=== PATIENT | male | born 1950 | race African-American/Black ===

== ENCOUNTER 2016-02-22 16:42 | Inpatient (IN) | payer OTHER ==
[~2016-02-22] VITALS: Ht 185.4 cm; Wt 83.3 kg
--- NOTE | 2016-02-22 17:31 | PD ---
HPI . Dyspnea on exertion Chief Complaint: Cardiac Time Seen by Provider: 17:26 Travel History International Travel<30 days: No Contact w/Intl Traveler<30days: No History of Present Illness HPI Patient presents from longterm with the chief complaint of dyspnea on exertion for a year. He was seen in the clinic in longterm yesterday and that they did some blood work. He states that they subsequently sent him here for evaluation today. He does not have chest pain. He has not been running a fever. PFSH Social History Tobacco Use: No Allergies-Medications (Allergen,Severity, Reaction): Coded Allergies: No Known Allergies (Unverified , 02/22/16) Review of Systems Except as stated in HPI: all other systems reviewed are Neg General / Constitutional: No: Fever, Chills Cardiovascular: No: Chest Pain or Discomfort Respiratory: Positive: Shortness of Breath Gastrointestinal: No: Nausea, Vomiting Physical Exam Narrative GENERAL: Healthy-appearing prisoner who is accompanied by a couple of guards. SKIN: Warm and dry. HEAD: Atraumatic. Normocephalic. EYES: Pupils equal and round. ENT: No nasal bleeding or discharge. Mucous membranes pink and moist. NECK: Trachea midline. CARDIOVASCULAR: Regular rate and rhythm. Heart sounds normal. RESPIRATORY: No accessory muscle use. Lungs are clear with full air movement throughout. GASTROINTESTINAL: Abdomen soft, non-tender, nondistended. MUSCULOSKELETAL: No obvious deformities. No edema. NEUROLOGICAL: Awake and alert. No obvious cranial nerve deficits. Motor grossly within normal limits. Normal speech. PSYCHIATRIC: Appropriate mood and affect; insight and judgment normal. Data Data Last Documented VS Vital Signs Date Time Temp Pulse Resp B/P Pulse Ox O2 Delivery O2 Flow Rate FiO2 02/22/16 18:00 97.5 84 32 135/77 98 Orders Complete Blood Count With Diff (02/22/16 17:26) Comprehensive Metabolic Panel (02/22/16 17:26) B-Type Natriuretic Peptide (02/22/16 17:26) Ckmb (Isoenzyme) Profile (02/22/16 17:26) Troponin I (02/22/16 17:26) Iv Access Insert/Monitor (02/22/16 17:26) Electrocardiogram (02/22/16:) Ecg Monitoring (02/22/16:26) Oximetry (02/22/16:) Oxygen Administration (1/5/17 17:26) Chest, Single Ap (02/22/16 17:26) CKMB (02/22/16 18:00) CKMB% (02/22/16 18:00) Furosemide Inj (Lasix Inj) (02/22/16 19:30) Nitroglycerin 2% Oint (Nitroglycerin 2% (02/22/16 19:30) Clopidogrel (Plavix) (02/22/16 19:30) Enoxaparin Inj (Lovenox Inj) (02/22/16 19:30) Aspirin Chew (Aspirin Chew) (02/22/16 19:30) Admit Order (Ed Use Only) (02/22/16 19:49) Place In Observation (02/22/16 ) Code Status (02/22/16 20:10) Vital Signs (Adult) Q4H (02/22/16 20:10) Activity Oob With Assistance (02/22/16 20:10) Bedside Glucose ANGELLA.AC&HS (02/22/16 20:10) ^ Surgical Endoscopist / Telemetry .CONTINUOUS (02/22/16 20:10) Intake + Output ANGELLA.QSHIFT (02/22/16 20:10) Diet Npo (02/23/16 Breakfast) Sodium Chlor 0.9% 1000 Ml Inj (Ns 1000 M (02/22/16 20:10) Sodium Chloride 0.9% Flush (Ns Flush) (02/22/16 20:15) Sodium Chloride 0.9% Flush (Ns Flush) (02/22/16 21:00) Acetaminophen (Tylenol) (02/22/16 20:15) Ondansetron Inj (Zofran Inj) (02/22/16 20:15) Prochlorperazine Supp (Compazine Supp) (02/22/16 20:15) Bisacodyl Supp (Dulcolax Supp) (02/22/16 20:15) Magnesium Hydroxide Liq (Milk Of Magnesi (02/22/16 20:15) Sennosides (Senokot) (02/22/16 20:15) Temazepam (Restoril) (02/22/16 20:15) Basic Metabolic Panel (Bmp) (02/23/16 06:00) Complete Blood Count With Diff (02/23/16 06:00) Troponin I (02/22/16 20:10) Troponin I (02/23/16 02:10) Electrocardiogram (02/22/16 20:15) Resp Oxygen Logan C Titrat 1-4 L (02/22/16 ) Pt Request For Service (02/22/16 20:10) Case Management Consult (02/22/16 20:10) Enoxaparin Inj (Lovenox Inj) (02/22/16 20:15) Scd Bilateral/Knee High ANGELLA.BID (02/22/16 20:10) Jong Bilateral/Knee High ANGELLA.QSHIFT (02/22/16 20:10) Echo 2d Comp W/Dopp(Routine) (02/22/16 ) Furosemide Inj (Lasix Inj) (02/23/16 09:00) Potassium Chloride (Kcl) (02/22/16 21:00) Potassium Chloride (Kcl) (02/22/16 20:15) Consult Cardiology (02/22/16 ) Labs Laboratory Tests Test 02/22/16 18:00 White Blood Count 8.7 TH/MM3 Red Blood Count 3.93 MIL/MM3 Hemoglobin 12.1 GM/DL Hematocrit 36.7 % Mean Corpuscular Volume 93.2 FL Mean Corpuscular Hemoglobin 30.7 PG Mean Corpuscular Hemoglobin 32.9 % Concent Red Cell Distribution Width 16.4 % Platelet Count 191 TH/MM3 Mean Platelet Volume 8.3 FL Neutrophils (%) (Auto) 81.5 % Lymphocytes (%) (Auto) 11.5 % Monocytes (%) (Auto) 5.6 % Eosinophils (%) (Auto) 0.9 % Basophils (%) (Auto) 0.5 % Neutrophils # (Auto) 7.1 TH/MM3 Lymphocytes # (Auto) 1.0 TH/MM3 Monocytes # (Auto) 0.5 TH/MM3 Eosinophils # (Auto) 0.1 TH/MM3 Basophils # (Auto) 0.0 TH/MM3 CBC Comment DIFF FINAL Differential Comment Sodium Level 145 MEQ/L Potassium Level 3.3 MEQ/L Chloride Level 108 MEQ/L Carbon Dioxide Level 28.5 MEQ/L Anion Gap 9 MEQ/L Blood Urea Nitrogen 20 MG/DL Creatinine 1.66 MG/DL Estimat Glomerular Filtration 41 ML/MIN Rate Random Glucose 95 MG/DL Calcium Level 8.4 MG/DL Total Bilirubin 1.5 MG/DL Aspartate Amino Transf 31 U/L (AST/SGOT) Alanine Aminotransferase 34 U/L (ALT/SGPT) Alkaline Phosphatase 94 U/L Total Creatine Kinase 228 U/L Creatine Kinase MB 4.4 NG/ML Troponin I 0.92 NG/ML B-Type Natriuretic Peptide GREATER THAN 5000 PG/ML Total Protein 7.3 GM/DL Albumin 2.6 GM/DL MDM Medical Decision Making Medical Screen Exam Complete: Yes Emergency Medical Condition: Yes Interpretation(s) EKG shows a sinus rhythm. He has a type II heart block. He has some T wave inversion Differential Diagnosis Differential diagnosis of dyspnea includes but is not limited to congestive heart failure, pneumonia, wheezing, pneumothorax, pulmonary embolism Narrative Course Patient presents from longterm evaluation of dyspnea for the last year. Chest x-ray shows huge cardiomegaly but lungs were relatively clear. The chest x-ray has been independently viewed by me. His CBC is relatively normal. H&H is 12.1 and 36.7 He has some renal insufficiency with a GFR of 41. Penicillin is 0.92. BNP is greater than 5000. He is ready for admission. I have ordered Lasix, nitroglycerin, Plavix, aspirin and Lovenox. Diagnosis Primary Impression: CHF (congestive heart failure) Qualified Code: I50.9 - Congestive heart failure, unspecified congestive heart failure chronicity, unspecified congestive heart failure type Admitting Information Admitting Physician Requests: Admit Condition: Stable Shirley Hatch MD Feb 22, 2016 17:30
--- NOTE | 2016-02-22 17:47 | RADRPT ---
EXAM DATE/TIME: 02/22/2016 17:29 [facility] COMPARISON: No previous studies available for comparison. INDICATIONS : Shortness of breath. MEDICAL HISTORY : None. SURGICAL HISTORY : None. ENCOUNTER: Initial ACUITY: 1 day PAIN SCORE: 0/10 LOCATION: Bilateral chest FINDINGS: A single view of the chest demonstrates global cardiomegaly. Minimal basilar airspace disease. No sig nificant effusion. CONCLUSION: 1. Global cardiomegaly with minimal basilar airspace disease. Differential diagnosis includes mild ed candy with basilar atelectasis. Don Corral MD on February 22, 2016 at 17:45 Board Certified Radiologist. This report was verified electronically.
[2016-02-22 18:00] VITALS: BP 135/77; PULSE 84; RESP 32; TEMP 97.5; O2SAT 98
[2016-02-22 18:30] LABS: AUTOMATED NEUTROPHIL # 7.1 TH/MM3 (1.8-7.7); BASOPHIL % 0.5 % (0.0-2.0); EOSINOPHIL # 0.1 TH/MM3 (0-0.4); EOSINOPHIL % 0.9 % (0.0-4.0); HEMATOCRIT 36.7 % (39.0-51.0); HEMO FLAGS DIFF FINAL; LYMPH % 11.5 % (9.0-44.0); MEAN CELL VOLUME 93.2 FL (80.0-100.0); MEAN CORPUSCULAR HEMOGLOBIN 30.7 PG (27.0-34.0); MEAN CORPUSCULAR HGB CONC 32.9 % (32.0-36.0); MONO % 5.6 % (0.0-8.0); NEUT % 81.5 % (16.0-70.0); PLATELET COUNT 191 TH/MM3 (150-450); RED BLOOD COUNT 3.93 MIL/MM3 (4.50-5.90); RED CELL DISTRIBUTION WIDTH 16.4 % (11.6-17.2); WHITE BLOOD COUNT 8.7 TH/MM3 (4.0-11.0)
[2016-02-22 18:50] LABS: ANION GAP 9 MEQ/L (5-15); AST (GOT) 31 U/L (15-37); BICARBONATE 28.5 MEQ/L (21.0-32.0); BLOOD UREA NITROGEN 20 MG/DL (7-18); CHLORIDE 108 MEQ/L (98-107); GLOMERULAR FILTRATION RATE 41 ML/MIN (>89); POTASSIUM 3.3 MEQ/L (3.5-5.1); SODIUM (NA) 145 MEQ/L (136-145)
[2016-02-22 18:55] LABS: ALKALINE PHOSPHATASE 94 U/L (45-117); ALT (GPT) 34 U/L (12-78); CREATINE KINASE 228 U/L (39-308); TOTAL BILIRUBIN ADULT 1.5 MG/DL (0.2-1.0)
[2016-02-22] MEDS ORDERED: NITROGLYCERIN 2% OINT 1 GM PACKET TOPICAL ONE (19:30)
[2016-02-22] MEDS ORDERED: ASPIRIN 81 MG CHEW TAB CHEW ONE (19:30)
[2016-02-22] MEDS ORDERED: FUROSEMIDE 100 MG/10 ML VIAL IV PUSH ONE (19:30)
[2016-02-22] MEDS ORDERED: ENOXAPARIN SODIUM 100 MG/ML SYRINGE SQ ONE (19:30)
[2016-02-22] MEDS ORDERED: CLOPIDOGREL 300 MG TAB PO ONE (19:30)
[2016-02-22 19:33] LABS: CKMB 4.4 NG/ML (0.5-3.6)
[2016-02-22] MEDS ORDERED: SODIUM CHLORIDE 0.9% FLUSH 5 ML FLUSH FLUSH PRN (20:15)
[2016-02-22] MEDS ORDERED: MAGNESIUM HYDROXIDE SUSP 30 ML CUP PO PRN (20:15)
[2016-02-22] MEDS ORDERED: POTASSIUM CHLORIDE 10 MEQ CONTROLLED RELEASE TAB PO ONE (20:15)
[2016-02-22] MEDS ORDERED: PROCHLORPERAZINE 25 MG SUPP PR PRN (20:15)
[2016-02-22] MEDS ORDERED: ACETAMINOPHEN 325 MG TAB PO PRN (20:15)
[2016-02-22] MEDS ORDERED: BISACODYL 10 MG SUPP PR PRN (20:15)
[2016-02-22] MEDS ORDERED: ONDANSETRON HCL 4 MG/2 ML VIAL IVP PRN (20:15)
[2016-02-22] MEDS ORDERED: SENNOSIDES 8.6 MG TAB PO PRN (20:15)
[2016-02-22] MEDS ORDERED: ENOXAPARIN SODIUM 40 MG/0.4 ML SYRINGE SQ SCH (21:00)
[2016-02-22] MEDS: SODIUM CHLOR 0.9% 1000 ML INJ 1,000 ML IV SCH (22:41)
[2016-02-22] MEDS: SODIUM CHLORIDE 0.9% FLUSH 5 ML FLUSH FLUSH SCH (22:41)
--- NOTE | 2016-02-22 23:11 | HHI.HP ---
[facility] Service [facility] Primary Care Physician Unknown Admission Diagnosis CHF Diagnoses: Chief Complaint: severe sob Travel History International Travel<30 Days: No Contact w/Intl Traveler <30 Da: No Traveled to Known Affected Are: No History of Present Illness Patient is 66-year-old AA male with past medical history of hypertension, CHF, presents from custodial with the chief complaint of dyspnea on exertion for a year. He was seen in the clinic in custodial yesterday and that they did some blood work. He states that they subsequently sent him here for evaluation today. He does not have chest pain. He has not been running a fever. Patient reports shortness of breath is getting worse over the past few days. Says she is not able to eat meals due to shortness of breath. He also reports increased lower extremity swelling. He does not require oxygen. Denies chest pain. However admits having chest pain at times. No fever or chills. Has intermittent cough no much production. Denies fever or chills. Says he is not taking his medications because he can't afford them. Review of Systems Constitutional: DENIES: Fever, Chills, Change in appetite Endocrine: DENIES: Heat/cold intolerance Eyes: DENIES: Blurred vision, Eye pain Ears, nose, mouth, throat: DENIES: Tinnitus, Hearing loss, Vertigo, Nasal discharge, Oral lesions, Throat pain, Hoarseness, Ear Pain, Running Nose, Epistaxis, Sinus Pain, Toothache, Odynophagia Respiratory: COMPLAINS OF: Cough, Sputum production, Shortness of breath, DENIES: Apneas, Snoring, Wheezing, Hemoptysis Cardiovascular: COMPLAINS OF: Chest pain, Dyspnea on Exertion, Lower Extremity Edema, Orthopnea, DENIES: Palpitations, Syncope, PND, Claudication Gastrointestinal: DENIES: Abdominal pain, Black stools, Bloody stools, Constipation, Diarrhea, Nausea, Vomiting, Difficulty Swallowing, Anorexia Genitourinary: DENIES: Urgency, Hematuria, Dysuria Musculoskeletal: COMPLAINS OF: Joint pain Integumentary: DENIES: Rash Neurologic: DENIES: Abnormal gait, Headache, Localized weakness, Paresthesias, Seizures, Speech Problems, Tremor, Poor Balance Psychiatric: DENIES: Anxiety, Depression Past Family Social History Past Medical History Hypertension, congestive heart failure Past Surgical History No surgeries Reported Medications Last Impressions Chest X-Ray 02/22/16 5056 Signed Impressions: Service Date/Time: February 17:29 - CONCLUSION: 1. Global cardiomegaly with minimal basilar airspace disease. Differential diagnosis includes mild edema with basilar atelectasis. Don Corral MD Allergies: Coded Allergies: No Known Allergies (Unverified , 02/22/16) Family History Mother stroke on the age of 80 Father heart problems, alcohol abuse Brother with stroke at the age of 50 Social History Denies alcohol use, illicit drug use or tobacco use. Physical Exam Vital Signs Vital Signs Date Time Temp Pulse Resp B/P Pulse Ox O2 Delivery O2 Flow Rate FiO2 02/22/16 18:00 97.5 84 32 135/77 98 Physical Exam GENERAL: This is a well-nourished, well-developed patient, in no apparent distress. SKIN: No rashes, ecchymoses or lesions. Cool and dry. HEAD: Atraumatic. Normocephalic. No temporal or scalp tenderness. EYES: Pupils equal round and reactive. Extraocular motions intact. No scleral icterus. No injection or drainage. ENT: Nose without bleeding, purulent drainage or septal hematoma. Throat without erythema, tonsillar hypertrophy or exudate. Uvula midline. Airway patent. NECK: Trachea midline. No JVD or lymphadenopathy. Supple, nontender, no meningeal signs. CARDIOVASCULAR: Regular rate and rhythm without murmurs, gallops, or rubs. RESPIRATORY: Clear to auscultation. Breath sounds equal bilaterally. No wheezes , rales, or rhonchi. GASTROINTESTINAL: Abdomen soft, non-tender, nondistended. No hepato-splenomegaly , or palpable masses. No guarding. MUSCULOSKELETAL: Extremities without clubbing, cyanosis, or edema. No joint tenderness, effusion, or edema noted. No calf tenderness. Negative Homans sign bilaterally. NEUROLOGICAL: Awake and alert. Cranial nerves II through XII intact. Motor and sensory grossly within normal limits. Five out of 5 muscle strength in all muscle groups. Normal speech. Laboratory Laboratory Tests Test 02/22/16 18:00 White Blood Count 8.7 Red Blood Count 3.93 Hemoglobin 12.1 Hematocrit 36.7 Mean Corpuscular Volume 93.2 Mean Corpuscular Hemoglobin 30.7 Mean Corpuscular Hemoglobin 32.9 Concent Red Cell Distribution Width 16.4 Platelet Count 191 Mean Platelet Volume 8.3 Neutrophils (%) (Auto) 81.5 Lymphocytes (%) (Auto) 11.5 Monocytes (%) (Auto) 5.6 Eosinophils (%) (Auto) 0.9 Basophils (%) (Auto) 0.5 Neutrophils # (Auto) 7.1 Lymphocytes # (Auto) 1.0 Monocytes # (Auto) 0.5 Eosinophils # (Auto) 0.1 Basophils # (Auto) 0.0 CBC Comment DIFF FINAL Differential Comment Sodium Level 145 Potassium Level 3.3 Chloride Level 108 Carbon Dioxide Level 28.5 Anion Gap 9 Blood Urea Nitrogen 20 Creatinine 1.66 Estimat Glomerular Filtration 41 Rate Random Glucose 95 Calcium Level 8.4 Total Bilirubin 1.5 Aspartate Amino Transf 31 (AST/SGOT) Alanine Aminotransferase 34 (ALT/SGPT) Alkaline Phosphatase 94 Total Creatine Kinase 228 Creatine Kinase MB 4.4 Troponin I 0.92 B-Type Natriuretic Peptide GREATER THAN 5000 Total Protein 7.3 Albumin 2.6 Result Diagram: 02/22/16 1800 02/22/16 1800 Imaging Last Impressions Chest X-Ray 02/22/16 1726 Signed Impressions: Service Date/Time: February 17:29 - CONCLUSION: 1. Global cardiomegaly with minimal basilar airspace disease. Differential diagnosis includes mild edema with basilar atelectasis. Don Corral MD Assessment and Plan Assessment and Plan 66-year-old Bev male with past medical history of hypertension, hyperlipidemia, BPH who came to the emergency room for evaluation of worsening shortness of breath. Congestive heart failure with BNP 5000. Elevated troponins. We'll trend troponins. Likely demand ischemia from congestive heart failure. Patient denies having chest pain. We'll do 2-D echo. Start Lasix 40 mg IV twice a day monitor closely kidney function. Cardiology consulted Monitor CBC, BMP, BNP Start lisinopril, metoprolol, ASA Check lipid panel, A1c, TSH Monitor I&Os. RODRIGO on CKD. Monitor kidney indices. BPH. Continue home meds Morbid obese BMI 31. Diet and exercise. Code Status Full code Discussed Condition With Patient, nurse, ED physician Physician Certification 2 Midnight Certification Type: Admission for Inpatient Services Order for Inpatient Services The services are ordered in accordance with Medicare regulations or non- Medicare payer requirements, as applicable. In the case of services not specified as inpatient-only, they are appropriately provided as inpatient services in accordance with the 2-midnight benchmark. Estimated LOS (days): 3 days is the estimated time the patient will need to remain in the hospital, assuming treatment plan goals are met and no additional complications. Post-Hospital Plan: Home Eliane Colvin MD Feb 22, 2016 23:11
[2016-02-22] MEDS: POTASSIUM CHLORIDE 20 MEQ CONTROLLED RELEASE TAB PO SCH (23:55)
[2016-02-23] VITALS (14 sets, daily range): BP systolic 121–169; BP diastolic 74–99; PULSE 73–96; RESP 16–24; TEMP 97.7–98.2; O2SAT 94–100
[2016-02-23 05:38] LABS: AUTOMATED NEUTROPHIL # 5.5 TH/MM3 (1.8-7.7); BASOPHIL % 0.5 % (0.0-2.0); EOSINOPHIL % 0.6 % (0.0-4.0); HEMATOCRIT 35.8 % (39.0-51.0); HEMO FLAGS DIFF FINAL; LYMPH % 11.8 % (9.0-44.0); LYMPHOCYTE # 0.8 TH/MM3 (1.0-4.8); MEAN CELL VOLUME 92.7 FL (80.0-100.0); MEAN CORPUSCULAR HGB CONC 33.4 % (32.0-36.0); MONO % 5.8 % (0.0-8.0); NEUT % 81.3 % (16.0-70.0); PLATELET COUNT 181 TH/MM3 (150-450); RED BLOOD COUNT 3.86 MIL/MM3 (4.50-5.90); RED CELL DISTRIBUTION WIDTH 16.4 % (11.6-17.2); WHITE BLOOD COUNT 6.7 TH/MM3 (4.0-11.0)
[2016-02-23] MEDS ORDERED: POTA75TA PO (05:49)
[2016-02-23] MEDS ORDERED: FURO1TAB62 PO (05:49)
[2016-02-23] MEDS ORDERED: METO50TA PO (05:49)
[2016-02-23] MEDS ORDERED: AMLO5TAB2 PO (05:49)
[2016-02-23 06:00] LABS: BICARBONATE 28.8 MEQ/L (21.0-32.0); POTASSIUM 3.4 MEQ/L (3.5-5.1)
[2016-02-23] MEDS: SODIUM CHLOR 0.9% 1000 ML INJ 1,000 ML IV SCH (07:00)
[2016-02-23] MEDS ORDERED: HEPARIN-NS/PF INJ 500 ML ONE (08:56)
[2016-02-23] MEDS: METOPROLOL TARTRATE 25 MG TAB PO SCH ×2 (09:00→20:23)
[2016-02-23] MEDS: CLOPIDOGREL 75 MG TAB PO SCH (09:00)
[2016-02-23] MEDS: FUROSEMIDE 40 MG/4 ML VIAL IV PUSH SCH ×3 (09:00→17:00)
[2016-02-23] MEDS: POTASSIUM CHLORIDE 20 MEQ CONTROLLED RELEASE TAB PO SCH ×2 (09:00→20:23)
[2016-02-23] MEDS ORDERED: LISINOPRIL 5 MG TAB PO SCH (09:00)
[2016-02-23] MEDS: SODIUM CHLORIDE 0.9% FLUSH 5 ML FLUSH FLUSH SCH (09:00)
[2016-02-23] MEDS: ASPIRIN 81 MG CHEW TAB CHEW SCH (09:00)
[2016-02-23] MEDS ORDERED: MIDAZOLAM HCL 2 MG/2 ML VIAL ONE (09:07)
--- NOTE | 2016-02-23 09:14 | MB ---
cc: DANILO SCHRADER DO DATE OF CONSULTATION February 23, 2016 REASON FOR CONSULTATION [id number] myocardial infarction. HISTORY OF PRESENT ILLNESS Dario Le is a pleasant 66-year-old male who presents from [place] [facility] to [facility] Emergency Room on February 22, 2016, due to dyspnea on exertion. He states that this dyspnea on exertion has been going on for the past year but got extensively worse recently. He also seems to get chest pain with any type of exertion. He was seen in the clinic in [place] [facility] and they did some blood work and then sent him over for evaluation today. He denies fevers, chills, cough. He has been unable to eat due to his shortness of breath. He has also noticed lower extremity swelling. PAST MEDICAL HISTORY 1. Hypertension. 2. Congestive heart failure. PAST SURGICAL HISTORY Denies. ALLERGIES No known drug allergies. MEDICATIONS 1. Metoprolol tartrate 50 mg b.i.d. 2. Norvasc 5 mg daily 3. Lasix 20 mg daily 4. Potassium 20 mg daily. FAMILY HISTORY Mother had a stroke at the age of 80. Father had heart problems and a history of alcohol abuse. Brother with a stroke at the age of 50. SOCIAL HISTORY Denies alcohol, illicit drug abuse or tobacco abuse. REVIEW OF SYSTEMS Fourteen systems were reviewed including osteopathic pertinent positives and negatives above, otherwise negative. PHYSICAL EXAMINATION VITAL SIGNS: Temperature 97.5, heart rate 78, blood pressure 169/80, respirations 18, pulse ox 97% on 5 liters. IN GENERAL: The patient appears well with no shortness of breath during conversation. Alert, awake and oriented x 3. HEENT: Extraocular muscles intact. Mucous membranes moist. NECK: Supple with JVD up to the jaw line at 45 degrees. Carotid upstroke is brisk in nature. HEART: Regular rate and rhythm. Positive first and second heart sounds with no noted murmurs, gallops or rubs. PMI is difficult to locate. Lungs have decreased breath sounds at bilateral bases with minimal rales at the bases. ABDOMEN: Soft, nontender, nondistended. No organomegaly noted. EXTREMITIES: 1+ pitting edema bilaterally with some chronic changes due to chronic edema. NEUROLOGICALLY: No focal deficits. SKIN: Warm, dry and intact. OSTEOPATHIC EXAM: No kyphoscoliosis, lordosis or paraspinal tender points. LABORATORY WORK White blood cells 6.7, hemoglobin 12.0, hematocrit 35.8, platelets 181. Sodium 147, potassium 3.4, BUN 19, creatinine 1.63 down from 1.66. Troponin 0.92, down to 0.84. BNP greater than 5000. ELECTROCARDIOGRAM (February 22, 2016 at 20:58) Normal sinus rhythm with occasional PVC, nonspecific ST-T wave changes. IMPRESSIONS 1. Acute heart failure of unknown systolic versus diastolic. 2. Pyg-YG-[id number] myocardial infarction, possible type 1 versus type 2. 3. Hypertension. 4. Chest pain with exertion concerning for coronary insufficiency. 5. CKD-III. RECOMMENDATIONS 1. Dario Le is a pleasant 66-year-old male with a concern for significant acute on chronic heart failure. Of concern is possible ischemia or significant coronary artery disease leading to this. 2. We will take him to the cardiac catheterization lab for a right and left heart cath due to his heart failure and N-STEMI. The patient is able to lay flat at this time for the procedure. 3. 2-D echo should be done to look at overall left ventricular function, cardiac structure and follow up with these. 4. Postprocedure we will need to continue with diuresis and starting him on meds for his blood pressure and congestive heart failure. 5. Further recommendations will be made after coronary visualization. Thank you for allowing me to see Dario Le. If there are any questions, please do not hesitate to call. Danilo Schrader DO VGP/SSB /8:32 AM /9:00 AM
[2016-02-23] MEDS ORDERED: IOHEXOL 350 MG/ML 100 ML BTL (for Cath Lab) OTHER ONE (10:00)
[2016-02-23] MEDS ORDERED: hydrALAZINE HCL 20 MG/ML VIAL ONE ×2 (10:01→10:17)
[2016-02-23] MEDS ORDERED: LABETALOL HCL 100 MG/20 ML VIAL ONE (10:28)
[2016-02-23] MEDS ORDERED: MISC INFORMATION XX ONE (10:30)
--- NOTE | 2016-02-23 10:52 | MA ---
cc: DANILO SCHRADER DO DATE 02/23/2016 PROCEDURE Left heart catheterization, right heart catheterization, coronary angiogram. PREPROCEDURE DIAGNOSIS NSTEMI, acute heart failure, Callow[place] Heart Association class IV, shortness of breath. POSTPROCEDURE DIAGNOSIS NSTEMI, nonischemic cardiomyopathy, acute heart failure, [place] Heart Association class IV. MEDICATIONS GIVEN Hydralazine 10 mg IV ESTIMATED BLOOD LOSS 10 cc CONTRAST 80 cc. FLUOROSCOPY 10.8 minutes PROCEDURAL SUMMARY Dario Le is a pleasant 66-year-old male who presented to the emergency room in acute heart failure, Calloway Heart Association class IV. He was found to have an elevation of his troponins and it was felt that he should undergo cardiac catheterization. The risks, benefits and alternatives were explained and he consented as such. He was brought to lab and prepped in the usual sterile fashion. His right femoral artery was accessed using a modified Seldinger technique and placement of a 5-Tanzanian sheath. His right femoral vein was accessed using a modified Seldinger technique and a 7-Tanzanian sheath was placed. Both sheaths were aspirated and flushed easily. A Houston-Cipriano catheter was then taken to a wedge position with pressures and sats measured on pullback in the usual fashion. The Houston-Cipriano catheter was then removed. A JR-4 was then taken to the ascending aorta. Selective angiography of the right coronary artery shows 10-20% through the midportion with a distal LPL of 40%. JR-4 was then exchanged for a JL-4. This was not able to reach across to the left coronary system and so this was exchanged for a JL-4.5. JL-4.5 was then used to engage the left coronary system. The left main is a large vessel with distal tapering of 20%. It gives off a large LAD and circumflex. LAD has 30% diffuse disease throughout the proximal portion with no significant disease distally. He has two large diagonals that come off the LAD without significant disease. The left circumflex has 30% in the proximal to mid section with 2 large obtuse marginals with no significant disease. JL-4.5 was then exchanged for a angled pigtail and this was used to cross the aortic valve with measurement of left ventricular pressures. This was then pulled back across the aortic valve showing no significant aortic stenosis. The pigtail was then removed over a J-wire. Both sheaths were aspirated and flushed easily. Mr. Le left the catheterization lab stable condition. HEMODYNAMIC RESULTS Right atrium 24. Right ventricle 75/18, RVEDP 24. PA 78/48, mean 59. Wedge 39. Cardiac output 4.0. Cardiac index 1.8 LV 140/26. LVEDP 40. IMPRESSION 1. Puj-ZS-aobgbidht myocardial infarction which appears to be type 2 in nature with no significant obstructive coronary artery disease. 2. Acute systolic heart failure with Calloway Heart Association class IV 3. Severe pulmonary hypertension due to left-sided heart disease. 4. Elevated wedge pressure. 5. Decreased cardiac index at 1.8. RECOMMENDATIONS 1. Dario did not appear to have any obstructive coronary artery disease to cause his assumed lower ejection fraction and acute systolic heart failure. 1. We will continue to treat him medically for his NSTEMI. 2. He will need diuresis from a heart failure standpoint. Once the patient is diuresed closer to a dry weight, we can consider starting beta aster, JOHNATHAN inhibitor and possible Spirolactone. 3. Further recommendations will be made during the hospital course. Thank you for allowing me to see Dario Le. If there are any questions, please do not hesitate to call. Danilo Schrader DO VGP/DJL /10:15 AM /10:29 AM
--- NOTE | 2016-02-23 16:44 | EKG ---
Date Performed: 02/22/2016 Time Performed: 18:28:37 PTAGE: 66 years EKG: COMPLETE HEART BLOCK WITH JUNCTIONAL ESCAPE RHYTHM MODERATE T-WAVE ABNORMALITY, CONSIDER LA TERAL ISCHEMIA ABNORMAL ECG NO PREVIOUS TRACING No prior for comparison DOCTOR: Hawa Tsang Interpretating Date/Time 02/23/2016 16:43:15
[2016-02-23] MEDS ORDERED: CHLORHEXIDINE GLUCONATE 2 % 1 PACK (2 CLOTHS)(extra cloths) TOP PRN (16:45)
--- NOTE | 2016-02-23 16:46 | EKG ---
Date Performed: 02/22/2016 Time Performed: 20:58:04 PTAGE: 66 years EKG: SUPRAVENTRICULAR RHYTHM WITH FREQUENT PVCs ST DEPRESSION CONSISTENT WITH ISCHEMIA NONSPECIF IC ST & T-WAVE ABNORMALITY ABNORMAL ECG PREVIOUS TRACING : 02/22/2016 18.28 Compared to previous tracing, the patient is having frequen t PVCs DOCTOR: Hawa Tsang Interpretating Date/Time 02/23/2016 16:44:50
[2016-02-23] MEDS: RESP: ALBUTEROL 2.5 MG/IPRATROPIUM 0.5 MG NEB (PRN) NEB ×3 (16:55→23:01)
--- NOTE | 2016-02-23 17:03 | HHI.PR ---
Subjective Remarks f/u SOB SOB a little bit better but still very SOB, no chest pain or palpitations. Good urine output. Status post heart catheterization this morning. Objective Vitals Vital Signs Date Time Temp Pulse Resp B/P Pulse Ox O2 Delivery O2 Flow Rate FiO2 02/23/16 16:26 97 21 02/23/16 14:00 97.7 75 21 121/74 100 02/23/16 11:26 100 Nasal Cannula 3.00 02/23/16 07:52 78 18 169/80 97 5 02/23/16 06:44 99 Nasal Cannula 1 02/23/16 06:43 100 Nasal Cannula 2 02/23/16 06:38 88 24 150/96 99 Nasal Cannula 5 02/23/16 05:39 87 16 152/93 97 Room Air 02/23/16 02:42 73 18 129/78 98 02/23/16 01:30 83 16 134/85 99 02/22/16 18:00 97.5 84 32 135/77 98 I/O 02/22/16 02/22/16 02/22/16 02/23/16 02/23/16 02/23/16 07:00 15:00 23:00 07:00 15:00 23:00 Output Total 200 ml Balance -200 ml Output Urine Total 200 ml Result Diagram: 02/23/16 0459 02/23/16 0514 Imaging Last Impressions Chest X-Ray 02/22/16 1726 Signed Impressions: Service Date/Time: February 17:29 - CONCLUSION: 1. Global cardiomegaly with minimal basilar airspace disease. Differential diagnosis includes mild edema with basilar atelectasis. Don Corral MD Objective Remarks Not in distress, well-nourished, looks stated age PERRL, pink conjunctiva without injection, anicteric Nose without bleeding, airway patent, oropharynx clear Supple neck, no masses or thyromegaly, trachea midline Normal rate and regular rhythm, no murmurs gallops or rubs appreciated. Heart rate in the 80s. Bilateral crackles at bases Normal bowel sounds, soft, non-tender, nondistended, no guarding. Extremities without clubbing, cyanosis, trace edema. No rash of generalized distribution. Skin is warm and dry. AAO x3, no cranial nerve deficits, moves all 4 extremities, no focal neurologic deficits Normal mood, appropriate affect A/P Assessment and Plan 66-year-old Bev male with past medical history of hypertension, hyperlipidemia, BPH who came to the emergency room for evaluation of worsening shortness of breath. Acute systolic congestive heart failure exacerbation-patient has cardiomegaly on chest x-ray, personally reviewed, BNP is 5000. Status post cardiac catheterization, discussed with cardiology who is following, clean coronaries. Continue Lasix, 40 mg 3 times a day for now, check echocardiogram. Continue lisinopril. Check TSH, check lipid panel. Non-ST elevated myocardial infarction-likely secondary to demand ischemia, no chest pain. As above, clean coronaries. Continue Plavix, metoprolol and aspirin. Troponin maxed at 0.92 Hypertension-continue lisinopril DVT prophylaxis: Micaela Wasserman MD Feb 23, 2016 17:02
--- NOTE | 2016-02-23 17:39 | EC ---
Study Study Date:02/23/2016 STUDY CONCLUSIONS SUMMARY - Left ventricle: The cavity size was severely dilated. Wall thickness was increased in a pattern of mild LVH. Systolic function was severely reduced. The estimated ejection fraction was in the range of 15% to 20%. Diffuse hypokinesis. - Aortic valve: Moderate regurgitation directed eccentrically in the LVOT and along the septum. - Mitral valve: Mild regurgitation. - Left atrium: The atrium was severely dilated. - Right ventricle: The cavity size was moderately to severely dilated. - Right atrium: The atrium was moderately dilated. - Tricuspid valve: Moderate regurgitation. - Pulmonic valve: Mild regurgitation. - Pericardium, extracardiac: There was a right pleural effusion. There was a left pleural effusion. If LV function is below 40, please consider prescribing an ACEI or ARB or document rationale for non-use. PROCEDURE DATA STUDY STATUS: Elective. Procedure: Transthoracic echocardiography. Image quality was good. Scanning was performed from the parasternal, apical, and subcostal acoustic windows. Study completion: The patient tolerated the procedure well. Transthoracic echocardiography. M-mode, complete 2D, complete spectral Doppler, and color Doppler. Patient status: Inpatient. CARDIAC ANATOMY LEFT VENTRICLE: The cavity size was severely dilated. Wall thickness was increased in a pattern of mild LVH. Systolic function was severely reduced. The estimated ejection fraction was in the range of 15% to 20%. Diffuse hypokinesis. AORTIC VALVE: Mildly thickened leaflets. Doppler: There was no stenosis. Moderate regurgitation directed eccentrically in the LVOT and along the septum. MITRAL VALVE: The valve appears to be grossly normal. Doppler: There was no evidence for stenosis. Mild regurgitation. LEFT ATRIUM: The atrium was severely dilated. RIGHT VENTRICLE: The cavity size was moderately to severely dilated. PULMONIC VALVE: Not well visualized. Doppler: There was no evidence for stenosis. Mild regurgitation. TRICUSPID VALVE: The valve appears to be grossly normal. Doppler: There was no evidence for stenosis. Moderate regurgitation. RIGHT ATRIUM: The atrium was moderately dilated. PERICARDIUM: There was no pericardial effusion. Pleura: There was a right pleural effusion. There was a left pleural effusion. BASIC MEASUREMENTS ADULT Normal Left ventricle LV internal dimension, ED, chordal level, *60 mm 43-52 PLAX LV internal dimension, ES, chordal level, *56.7 mm 23-38 PLAX Fractional shortening, chordal level, PLAX *6 % >29 LV posterior wall thickness, ED 12.9 mm IVS/LVPW ratio, ED 1.02 <1.3 Ventricular septum Septal thickness, ED 13.2 mm Aortic valve Leaflet separation 21 mm 15-26 Right ventricle RV internal dimension, ED, PLAX *39.9 mm 19-38 BASIC MEASUREMENTS ADULT Normal Aortic valve Leaflet separation 21 mm 15-26 Aorta Root diameter, ED *47 mm 20-37 Left atrium Anterior-posterior dimension, ES *50 mm 19-40 LA/aortic root ratio 1.06 DOPPLER MEASUREMENTS ADULT Normal Main pulmonary artery Pressure, S *41 mm Hg =30 Aortic valve Regurgitant velocity, ED 358 cm/s Regurgitant deceleration 1670 cm/s^2 Regurgitant pressure half-time 630 ms Regurgitant gradient, ED 51 mm Hg Tricuspid valve Regurgitant peak velocity 278 cm/s Peak RV-RA gradient, S 31 mm Hg Maximal regurgitant velocity 278 cm/s Systemic veins Estimated CVP 10 mm Hg Right ventricle RV pressure, S *41 mm Hg <30 LEGEND: Mean values are shown as u=mean value. Asterisk (*) sheehan values outside specified normal range. Prepared and signed by Danilo Serra [id number]
[2016-02-23 18:12] LABS: BLOOD GAS BASE EXCESS 0.8 mmol/L (-2-2); BLOOD GAS CARBOXYHEMOGLOBIN 2.3 % (0-4); BLOOD GAS HCO3 24 mmol/L (22-26); BLOOD GAS METHEMOGLOBIN 0.9 % (0-2); BLOOD GAS O2 HGB SATURATION 91 % (90-100); BLOOD GAS OXYGEN CONTENT 16.7 Vol % (12.0-20.0); BLOOD GAS PCO2 31 mmHg (38-42); BLOOD GAS PO2 67 mmHg (61-120); CRITICAL VALUE NO; DRAW SITE LT RADIAL; FIO2 21 %; NUMBER OF ARTERIAL PUNCTURES 1; STAT NO; TEMP CORR TO 98.6; ULNAR PULSE PRESENT
[2016-02-23] MEDS: SODIUM CHLORIDE 0.9% FLUSH 5 ML FLUSH IVF SCH (20:23)
[2016-02-23] MEDS: ATORVASTATIN 80 MG TAB PO SCH (20:23)
[2016-02-23] MEDS: HEPARIN SODIUM - SQ 10,000 UNITS/ML VIAL SQ SCH (20:24)
[2016-02-23] MEDS: TEMAZEPAM 15 MG CAP PO PRN (22:19)
[2016-02-24] VITALS (19 sets, daily range): BP systolic 140–188; BP diastolic 80–113; PULSE 69–112; RESP 12–30; TEMP 97.4–99.1; O2SAT 94–100
[2016-02-24] MEDS: FUROSEMIDE 40 MG/4 ML VIAL IV PUSH SCH ×3 (01:06→16:44)
[2016-02-24] MEDS: CHLORHEXIDINE GLUCONATE 2 % 1 PACK (2 CLOTHS)(taper/protocol) TOP SCH (04:00)
[2016-02-24] MEDS: LORazepam 2 MG/ML VIAL IV PUSH PRN ×3 (04:22→18:16)
[2016-02-24 07:05] LABS: AUTOMATED NEUTROPHIL # 7.8 TH/MM3 (1.8-7.7); BASOPHIL % 0.3 % (0.0-2.0); EOSINOPHIL % 0.2 % (0.0-4.0); HEMO FLAGS DIFF FINAL; LYMPH % 11.5 % (9.0-44.0); LYMPHOCYTE # 1.1 TH/MM3 (1.0-4.8); MEAN CELL VOLUME 93.5 FL (80.0-100.0); MEAN CORPUSCULAR HEMOGLOBIN 31.2 PG (27.0-34.0); MEAN CORPUSCULAR HGB CONC 33.4 % (32.0-36.0); MONO % 6.1 % (0.0-8.0); NEUT % 81.9 % (16.0-70.0); PLATELET COUNT 187 TH/MM3 (150-450); RED BLOOD COUNT 3.96 MIL/MM3 (4.50-5.90); RED CELL DISTRIBUTION WIDTH 16.6 % (11.6-17.2); WHITE BLOOD COUNT 9.6 TH/MM3 (4.0-11.0)
[2016-02-24 07:11] LABS: BICARBONATE 30.3 MEQ/L (21.0-32.0); HDL CHOLESTEROL 45.2 MG/DL (40.0-60.0); POTASSIUM 3.6 MEQ/L (3.5-5.1)
--- NOTE | 2016-02-24 08:52 | HHI.PR ---
Subjective Remarks Noted agitated, and altered mental status. He refussed bipap overnight. Pulling IV lines, aggressive with the nurse. Patient received ativan and haldol, placed in restraints. Will also place nathan. Doesn't answer my questions, sedated at this time. Objective Vitals Vital Signs Date Time Temp Pulse Resp B/P Pulse Ox O2 Delivery O2 Flow Rate FiO2 02/24/16 06:00 80 02/24/16 04:30 99 25 02/24/16 04:00 89 02/24/16 04:00 98.3 69 22 140/84 100 02/24/16 02:00 93 02/24/16 01:44 100 25 02/24/16 00:00 98.1 74 20 151/97 96 02/24/16 00:00 72 02/23/16 23:35 100 25 02/23/16 22:00 81 02/23/16 21:13 97 21 02/23/16 20:00 98.2 96 18 163/99 94 02/23/16 20:00 93 02/23/16 18:00 91 02/23/16 16:26 97 21 02/23/16 16:00 74 02/23/16 16:00 98.0 74 19 135/79 99 02/23/16 14:00 75 02/23/16 14:00 97.7 75 21 121/74 100 02/23/16 11:26 100 Nasal Cannula 3.00 I/O 02/23/16 02/23/16 02/23/16 02/24/16 02/24/16 02/24/16 07:00 15:00 23:00 07:00 15:00 23:00 Intake Total 240 ml 120 ml Output Total 750 ml 450 ml 550 ml Balance -750 ml -210 ml -430 ml Intake Oral 240 ml 120 ml IV Total 0 ml 0 ml Output Urine Total 750 ml 450 ml 550 ml # Bowel Movements 0 0 Result Diagram: 02/24/16 0559 02/24/16 0559 Imaging Last Impressions Chest X-Ray 02/22/16 1726 Signed Impressions: Service Date/Time: February 17:29 - CONCLUSION: 1. Global cardiomegaly with minimal basilar airspace disease. Differential diagnosis includes mild edema with basilar atelectasis. Don Corral MD Objective Remarks GENERAL: 66 yo AA, agitated, in restraints. Appears in distress. SKIN: Warm and dry. HEAD: Atraumatic. Normocephalic. EYES: Pupils equal and round. No scleral icterus. No injection or drainage. ENT: No nasal bleeding or discharge. Mucous membranes pink and moist. NECK: Trachea midline. No JVD. CARDIOVASCULAR: Regular rate and rhythm. RESPIRATORY: Decreased breath sounds. Scattered crackles. Labored breathing. GASTROINTESTINAL: Abdomen soft, non-tender, nondistended. MUSCULOSKELETAL: Extremities without clubbing, cyanosis, or edema. No obvious deformities. NEUROLOGICAL: Moves arm and legs. Agitated. PSYCHIATRIC: Agitated. A/P Assessment and Plan 66-year-old Bev male with past medical history of hypertension, hyperlipidemia, BPH who came to the emergency room for evaluation of worsening shortness of breath. Acute systolic congestive heart failure exacerbation EF of 15-20%-patient has cardiomegaly on chest x-ray, personally reviewed, BNP is 5000. Status post cardiac catheterization, discussed with cardiology who is following, clean coronaries. Continue Lasix, 40 mg 3 times a day for now, check echocardiogram. Continue lisinopril. Check TSH, check lipid panel. ECHO with severe low EF of 15-20%, had cath , nonischemic cardiomyopathy Non-ST elevated myocardial infarction-likely secondary to demand ischemia, no chest pain. As above, clean coronaries. Continue Plavix, metoprolol and aspirin. Troponin maxed at 0.92 Acute respiratory failure requiring BIPAP and O2. Patient non complaint with bipap and O2. Likely 2/2 CHF with exacerbation. Continue meds as above. Place nathan for accurate UOP. Will do ABG. Repeat CXR. Acute encephalopathy, metabolic patient with acute respiratory failure, CHF with low EF, Hypernatremia, noncompliant with bipap. Hypertension-continue lisinopril. DVT prophylaxis: Heparin Eliane Colvin MD Feb 24, 2016 08:52 Eliane Colvin MD Feb 24, 2016 08:52
[2016-02-24] MEDS: MUPIROCIN 2% OINT 1 APPLIC/GM SYR EACH NARE SCH ×2 (09:35→22:07)
[2016-02-24] MEDS: SODIUM CHLORIDE 0.9% FLUSH 5 ML FLUSH IVF SCH ×2 (09:36→20:48)
[2016-02-24] MEDS: HEPARIN SODIUM - SQ 10,000 UNITS/ML VIAL SQ SCH ×2 (09:36→20:47)
[2016-02-24] MEDS: POTASSIUM CHLORIDE 20 MEQ CONTROLLED RELEASE TAB PO SCH ×3 (09:39→21:00)
[2016-02-24] MEDS: ASPIRIN 81 MG CHEW TAB CHEW SCH (09:39)
[2016-02-24] MEDS: METOPROLOL TARTRATE 25 MG TAB PO SCH (09:39)
[2016-02-24] MEDS: CLOPIDOGREL 75 MG TAB PO SCH (09:39)
[2016-02-24 09:46] LABS: BLOOD GAS BASE EXCESS 0.9 mmol/L (-2-2); BLOOD GAS CARBOXYHEMOGLOBIN 2.3 % (0-4); BLOOD GAS HCO3 25 mmol/L (22-26); BLOOD GAS METHEMOGLOBIN 0.9 % (0-2); BLOOD GAS O2 HGB SATURATION 95 % (90-100); BLOOD GAS OXYGEN CONTENT 15.8 Vol % (12.0-20.0); BLOOD GAS PCO2 37 mmHg (38-42); BLOOD GAS PO2 96 mmHg (61-120); BLOOD GAS TOTAL HGB 11.8 G/DL (12.0-16.0); CRITICAL VALUE NO; DRAW SITE RT RADIAL; LITER FLOW 4 L/M; NUMBER OF ARTERIAL PUNCTURES 1; OXYGEN DEVICE NASAL CANNULA; STAT YES; TEMP CORR TO 98.6; ULNAR PULSE PRESENT
--- NOTE | 2016-02-24 10:01 | PD.CARD.PN ---
Subjective Subjective Remarks Appears in distress, somewhat unresponsive, over night agitated removing bipap/ IVs Objective Medications Current Medications Medications (Trade) Dose Ordered Sig/Rogelio Route Start Time Stop Time Status Last Admin (NS 1000 ml Inj) 1,000 ml @ 100 mls/hr Q10H IV 02/22/16 21:00 Hold 02/22/16 22:41 (Tylenol) 650 mg Q4H PRN PO 02/22/16 20:15 (Zofran Inj) 4 mg Q6H PRN IVP 02/22/16 20:15 (Compazine Supp) 25 mg Q12H PRN TN 02/22/16 20:15 (Dulcolax Supp) 10 mg DAILY PRN TN 02/22/16 20:15 (Milk Of Magnesia Liq) 30 ml Q12H PRN PO 02/22/16 20:15 (Senokot) 17.2 mg Q12H PRN PO 02/22/16 20:15 (Restoril) 15 mg HS PRN PO 02/22/16 20:15 02/23/16 22:19 (KCl) 20 meq Q12HR PO 02/22/16 21:00 02/24/16 09:39 (Lopressor) 12.5 mg Q12HR PO 02/23/16 09:00 02/24/16 09:39 (Aspirin Chew) 81 mg DAILY CHEW 02/23/16 09:00 02/24/16 09:39 (Plavix) 75 mg DAILY PO 02/23/16 09:00 02/24/16 09:39 (Lipitor) 80 mg HS PO 02/23/16 21:00 (NS Flush) 2 ml BID IVF 02/23/16 21:00 02/24/16 09:36 (NS Flush) 2 ml UNSCH PRN IVF 02/23/16 10:30 Miscellaneous Information Patient in critical care unit? Ass... [id number] XX 02/23/16 16:45 02/23/16 16:45 (Chlorhexidine 2% Cloth) 3 pack DAILY@04 TOP 02/24/16 04:00 02/28/16 04:01 02/24/16 04:00 (Chlorhexidine 2% Cloth) 3 pack UNSCH PRN TOP 02/23/16 16:45 02/28/16 16:40 (Lasix Inj) 40 mg Q8H IV PUSH 02/23/16 17:00 02/24/16 09:36 (Heparin Inj) 5,000 units Q12HR SQ 02/23/16 21:00 02/24/16 09:36 (Ativan Inj) 1 mg Q4H PRN IV PUSH 02/24/16 03:15 02/24/16 08:27 (Haldol Inj) 2 mg Q6H PRN IM 02/24/16 08:45 (Bactroban Nasal 2% Oint) 1 applic BID EACH NARE 02/24/16 09:00 03/02/16 08:59 02/24/16 09:35 Vital Signs / I&O Vital Signs Date Time Temp Pulse Resp B/P Pulse Ox O2 Delivery O2 Flow Rate FiO2 02/24/16 06:00 80 02/24/16 04:30 99 25 02/24/16 04:00 89 02/24/16 04:00 98.3 69 22 140/84 100 02/24/16 02:00 93 02/24/16 01:44 100 25 02/24/16 00:00 98.1 74 20 151/97 96 02/24/16 00:00 72 02/23/16 23:35 100 25 02/23/16 22:00 81 02/23/16 21:13 97 21 02/23/16 20:00 98.2 96 18 163/99 94 02/23/16 20:00 93 02/23/16 18:00 91 02/23/16 16:26 97 21 02/23/16 16:00 74 02/23/16 16:00 98.0 74 19 135/79 99 02/23/16 14:00 75 02/23/16 14:00 97.7 75 21 121/74 100 02/23/16 11:26 100 Nasal Cannula 3.00 I/O 02/23/16 02/23/16 02/23/16 02/24/16 02/24/16 02/24/16 07:00 15:00 23:00 07:00 15:00 23:00 Intake Total 240 ml 120 ml Output Total 750 ml 450 ml 550 ml Balance -750 ml -210 ml -430 ml Intake Oral 240 ml 120 ml IV Total 0 ml 0 ml Output Urine Total 750 ml 450 ml 550 ml # Bowel Movements 0 0 Physical Exam GENERAL: Somewhat unresponsive SKIN: Warm and dry. HEAD: Atraumatic. Normocephalic. EYES: Pupils equal and round. No scleral icterus. No injection or drainage. ENT: No nasal bleeding or discharge. Mucous membranes pink and moist. NECK: Trachea midline. No JVD. CARDIOVASCULAR: Regular rate and rhythm. RESPIRATORY: Decreased breath sounds bilaterally GASTROINTESTINAL: Abdomen soft, non-tender, nondistended. Hepatic and splenic margins not palpable. MUSCULOSKELETAL: Extremities without clubbing, cyanosis, or edema. No obvious deformities. NEUROLOGICAL: No obvious cranial nerve deficits. Motor grossly within normal limits. PSYCHIATRIC: Unable to obtain Laboratory Laboratory Tests Test 02/23/16 02/23/16 02/24/16 02/24/16 13:40 18:00 05:59 09:39 Nasal Screen MRSA (PCR) POSITIVE Blood Gas Puncture Site LT RADIAL RT RADIAL Blood Gas Patient Temperature 98.6 98.6 Blood Gas HCO3 24 mmol/L 25 mmol/L Blood Gas Base Excess 0.8 mmol/L 0.9 mmol/L Blood Gas Oxygen Saturation 91 % 95 % Arterial Blood pH 7.50 7.44 Arterial Blood Partial 31 mmHg 37 mmHg Pressure CO2 Arterial Blood Partial 67 mmHg 96 mmHg Pressure O2 Arterial Blood Oxygen Content 16.7 Vol % 15.8 Vol % Arterial Blood 2.3 % 2.3 % Carboxyhemoglobin Arterial Blood Methemoglobin 0.9 % 0.9 % Blood Gas Hemoglobin 13.0 G/DL 11.8 G/DL Blood Gas Inspired Oxygen 21 % White Blood Count 9.6 TH/MM3 Red Blood Count 3.96 MIL/MM3 Hemoglobin 12.3 GM/DL Hematocrit 37.0 % Mean Corpuscular Volume 93.5 FL Mean Corpuscular Hemoglobin 31.2 PG Mean Corpuscular Hemoglobin 33.4 % Concent Red Cell Distribution Width 16.6 % Platelet Count 187 TH/MM3 Mean Platelet Volume 8.4 FL Neutrophils (%) (Auto) 81.9 % Lymphocytes (%) (Auto) 11.5 % Monocytes (%) (Auto) 6.1 % Eosinophils (%) (Auto) 0.2 % Basophils (%) (Auto) 0.3 % Neutrophils # (Auto) 7.8 TH/MM3 Lymphocytes # (Auto) 1.1 TH/MM3 Monocytes # (Auto) 0.6 TH/MM3 Eosinophils # (Auto) 0.0 TH/MM3 Basophils # (Auto) 0.0 TH/MM3 CBC Comment DIFF FINAL Differential Comment Sodium Level 147 MEQ/L Potassium Level 3.6 MEQ/L Chloride Level 109 MEQ/L Carbon Dioxide Level 30.3 MEQ/L Anion Gap 8 MEQ/L Blood Urea Nitrogen 23 MG/DL Creatinine 1.54 MG/DL Estimat Glomerular Filtration 55 ML/MIN Rate Random Glucose 96 MG/DL Calcium Level 8.3 MG/DL Triglycerides Level 44 MG/DL Cholesterol Level 156 MG/DL LDL Cholesterol 102 MG/DL HDL Cholesterol 45.2 MG/DL Cholesterol/HDL Ratio 3.45 RATIO Thyroid Stimulating Hormone 1.290 uIU/ML 3rd Gen Oxygen Delivery Device NASAL CANNULA Blood Gas Liter Flow 4 L/M Assessment and Plan Problem List: (1) NICM (nonischemic cardiomyopathy) (2) Acute systolic heart failure (3) Acute kidney injury superimposed on CKD (4) Hypertension (5) NSTEMI (non-ST elevated myocardial infarction) Assessment and Plan 1) Biventricular heart failure, NICM EF 15-20% 2) No obstructive CAD 3) Given Ativan this morning due to agitation, appears somewhat unresponsive... ABG, CPAP placed, CXR 4) Spoke to critical care about the patient in case of intubation if CPAP not working 5) Continue diuresis, change Lopressor to Coreg 6) ASA/Plavix 7) After diuresis, most likely needs JOHNATHAN-I Danilo Serra DO Feb 24, 2016 10:01
--- NOTE | 2016-02-24 10:19 | RADRPT ---
EXAM DATE/TIME: 02/24/2016 09:51 [facility] COMPARISON: CHEST SINGLE AP, February 22, 2016, 17:29. INDICATIONS : Respiratory failure. MEDICAL HISTORY : Congestive heart failure. SURGICAL HISTORY : None. ENCOUNTER: Subsequent ACUITY: 3 days PAIN SCORE: Non-responsive. LOCATION: Bilateral chest FINDINGS: The heart remains enlarged. There is increasing interstitial edema present. Minimal consolidative c hanges are seen in the left base. CONCLUSION: Persistent cardiomegaly with increasing interstitial edema. Yunier Delgado MD FACR on February 24, 2016 at 10:12 Board Certified Radiologist. This report was verified electronically.
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
[2016-02-24] MEDS ORDERED: NALOXONE HCL 0.4 MG/ML AMP IV PRN (11:30)
[2016-02-24] MEDS ORDERED: POTASSIUM CHLOR 20 MEQ PREMIX 100 ML ONE (15:38)
[2016-02-24] MEDS: POTASSIUM CHLOR 20 MEQ PREMIX 100 ML IV SCH ×2 (15:41→17:49)
[2016-02-24] MEDS: HALOPERIDOL LACTATE 5 MG/ML AMP IM PRN (17:49)
[2016-02-24] MEDS: ATORVASTATIN 80 MG TAB PO SCH ×2 (20:47→21:00)
[2016-02-24] MEDS: CARVEDILOL 3.125 MG TAB PO SCH ×2 (20:48→21:00)
[2016-02-24] MEDS: TEMAZEPAM 15 MG CAP PO PRN (20:48)
--- NOTE | 2016-02-24 21:30 | MB ---
cc: STEPHEN DELGADO DATE OF CONSULTATION 03/05/16 REASON FOR CONSULTATION Mental status change. HISTORY OF PRESENT ILLNESS Mr. Le is a 66-year-old man with history of hypertension, congestive heart failure with a low ejection fraction of 15-28% and cardiomegaly who presents with change in mental status, shortness of breath, aggressive behavior, underwent cardiac catheterization with no evidence of any coronary artery disease. He has been very confused and lethargic. No focal deficits or seizures identified. He also developed acute respiratory failure, was found to have hypernatremia as well. NEUROLOGIC EXAMINATION VITAL SIGNS: Blood pressure is 143/80, pulse 98, respiratory rate is 16, temperature 97 degrees. NEURO: Higher cortical function he is very lethargic, difficult to arouse, does not follow commands. Cranial nerves: Pupils are equal and reactive. There is no facial asymmetry. On motor exam he has minimal spontaneous limb movement. He does withdraw both lower extremities to tactile stimulation equally. No focal deficits. Reflexes are symmetric. IMAGING STUDIES CT of the brain no acute change. LABORATORY DATA White count is 9600, hemoglobin 12.3, hematocrit 37%, platelet count 187,000. Sodium is 147, potassium 3.6, chloride 109, CO2 30, the BUN is 23, creatinine 1.54, GFR is 55, glucose 96, triglycerides 44, cholesterol 156, LDL 102. Blood gas pO2 67, pCO2 31, pH 7.5, O2 sat 91%. IMPRESSION Probable metabolic encephalopathy. RECOMMENDATIONS Will proceed with an MRI of the brain if the patient is able to tolerate, to be sure there has been no stroke . Given his cardiomyopathy also recommend EEG. MD JOSEPHINE Dan/IVONNE /7:30 PM /9:21 PM
[2016-02-24] MEDS: hydrALAZINE HCL 20 MG/ML VIAL IV PUSH PRN (21:50)
[2016-02-24] MEDS ORDERED: LABETALOL HCL 100 MG/20 ML VIAL IV PUSH ONE (23:00)
[2016-02-24 23:46] LABS: POTASSIUM 3.8 MEQ/L (3.5-5.1)
[2016-02-25] VITALS (16 sets, daily range): BP systolic 126–151; BP diastolic 76–96; PULSE 60–98; RESP 11–22; TEMP 97.2–98.9; O2SAT 90–100
[2016-02-25] MEDS ORDERED: AMIODARONE 150 MG/D5W 97 ML BOLUS 10 MINUTES IV ONE ×2 (03:00)
--- NOTE | 2016-02-25 04:11 | HHI.PR ---
Addendum to Inpatient Note Addendum Reason: Additional Documentation Additional Information I was paged by RN on a 66 y/o male admitted for CHF who began to have multiple episodes of VTACH 16 beats and longer. Unfortunantly he does have an EF of 15/20 %. EKG was completed which was able to capture a 4 beat run and no evidence of QTC elongation on the machine. Electrolytes were normal K: 3.8 M.0 and phos: 2.8. I then discussed the case with Dr. Herrera and Dr. Porter who recommended Amiodarone 150mg bolus over one hour, and then continue with drip. Cardiology is already currently following and order to update them in AM was ordered. Kathy Howard Feb 25, 2016 04:10
[2016-02-25] MEDS: FUROSEMIDE 40 MG/4 ML VIAL IV PUSH SCH ×3 (04:29→17:14)
[2016-02-25] MEDS: AMIODARONE 450 MG/D5W (EXCEL) 241 ML IV SCH ×4 (04:29→10:39)
[2016-02-25] MEDS: CHLORHEXIDINE GLUCONATE 2 % 1 PACK (2 CLOTHS)(taper/protocol) TOP SCH (04:30)
[2016-02-25] MEDS: HALOPERIDOL LACTATE 5 MG/ML AMP IM PRN (04:39)
[2016-02-25 05:20] LABS: AUTOMATED NEUTROPHIL # 9.4 TH/MM3 (1.8-7.7); BASOPHIL % 0.4 % (0.0-2.0); EOSINOPHIL % 0.3 % (0.0-4.0); HEMATOCRIT 36.9 % (39.0-51.0); HEMO FLAGS DIFF FINAL; LYMPH % 8.1 % (9.0-44.0); LYMPHOCYTE # 0.9 TH/MM3 (1.0-4.8); MEAN CELL VOLUME 93.4 FL (80.0-100.0); MEAN CORPUSCULAR HEMOGLOBIN 31.4 PG (27.0-34.0); MEAN CORPUSCULAR HGB CONC 33.6 % (32.0-36.0); MONO % 8.4 % (0.0-8.0); NEUT % 82.8 % (16.0-70.0); PLATELET COUNT 194 TH/MM3 (150-450); RED BLOOD COUNT 3.95 MIL/MM3 (4.50-5.90); RED CELL DISTRIBUTION WIDTH 16.5 % (11.6-17.2); WHITE BLOOD COUNT 11.4 TH/MM3 (4.0-11.0)
[2016-02-25 05:51] LABS: MAGNESIUM 2.1 MG/DL (1.5-2.5); POTASSIUM 4.1 MEQ/L (3.5-5.1)
--- NOTE | 2016-02-25 07:45 | HHI.FPPN ---
Subjective Remarks Patient seen and examined this am. Paged this am regarding respiratory distress, diaphoresis, and increased work of breathing. The patient is in active CHF with an EF of 10-15%. He is supposed to be on bipap, but was not on it yesterday, likely due to him removing it because of agitation. He previously did well on bipap. I went and examined the patient, Dr. Alvarez was at bedside. Patient found sating on 2L by nasal canula in the low 90s. Breathing was a bit labored, but patient was overall stable, decided to hold on intubation at this time. The patient is sedated due to recent ativan administration. Objective Vitals Vital Signs Date Time Temp Pulse Resp B/P Pulse Ox O2 Delivery O2 Flow Rate FiO2 02/25/16 06:00 85 02/25/16 04:00 86 02/25/16 04:00 98.5 86 11 145/85 90 02/25/16 02:00 97 02/25/16 00:00 98.4 82 22 151/96 100 02/25/16 00:00 98 02/24/16 22:30 98 02/24/16 22:00 98 02/24/16 20:13 97 Nasal Cannula 3.00 02/24/16 20:05 99.1 02/24/16 20:00 112 29 188/113 94 02/24/16 20:00 98 02/24/16 18:00 98 02/24/16 16:00 69 02/24/16 16:00 72 12 143/80 100 02/24/16 14:00 70 02/24/16 12:00 83 02/24/16 12:00 97.7 82 16 143/80 100 02/24/16 10:35 155/99 02/24/16 10:34 97.4 99 30 181/97 99 02/24/16 10:00 80 02/24/16 08:00 99 I/O 02/24/16 02/24/16 02/24/16 02/25/16 02/25/16 02/25/16 07:00 15:00 23:00 07:00 15:00 23:00 Intake Total 120 ml 347 ml 328 ml Output Total 550 ml 990 ml 450 ml 575 ml Balance -430 ml -990 ml -103 ml -247 ml Intake Oral 120 ml 100 ml IV Total 0 ml 347 ml 228 ml Output Urine Total 550 ml 990 ml 450 ml 575 ml # Bowel Movements 0 Result Diagram: 02/25/16 0458 02/25/16 0458 Imaging Last Impressions Head CT 02/24/16 0000 Signed Impressions: Service Date/Time: Wednesday, February 24, 2016 10:53 - CONCLUSION: Moderate motion artifact otherwise negative. Yunier Delgado MD FACR Chest X-Ray 02/24/16 0000 Signed Impressions: Service Date/Time: Wednesday, February 24, 2016 09:51 - CONCLUSION: Persistent cardiomegaly with increasing interstitial edema. Yunier Delgado MD FACR Objective Remarks GENERAL: 66 yo AA, agitated, leg restraints, socks on hand, mild distress SKIN: Warm and dry. HEAD: Atraumatic. Normocephalic. EYES: Pupils equal and round. No scleral icterus. No injection or drainage. ENT: No nasal bleeding or discharge. Mucous membranes pink and moist. NECK: Trachea midline. No JVD. CARDIOVASCULAR: Regular rate and rhythm. RESPIRATORY: Decreased breath sounds. Scattered crackles. Labored breathing. GASTROINTESTINAL: Abdomen soft, non-tender, nondistended. MUSCULOSKELETAL: Extremities without clubbing, cyanosis, or edema. No obvious deformities. NEUROLOGICAL: Moves arm and legs. PSYCHIATRIC: Agitated. A/P Assessment and Plan 66-year-old Bev male with past medical history of hypertension, hyperlipidemia, BPH who came to the emergency room for evaluation of worsening shortness of breath, found to be in acute CHF exacerbation, altered mental status, and now respiratory distress. Respiratory Distress: increased oxygen to 5L, place patient back on BiPap. Consult artificial flower maker, case discussed with Dr. Alvarez Acute systolic congestive heart failure exacerbation EF of 15-20%-patient has cardiomegaly on chest x-ray, BNP is 5000. Has been evaluated by cards: nonobstructive CAD, continue diuresis, ASA/plavix, coreg. Will need JOHNATHAN-I after diuresis. Status post cardiac catheterization: no obstructive coronary artery disease, NSTEMI secondary in nature, acute systolic heart failure class 4 , severe pulmonary HTN, elevated wedge pressure, decreased cardiac index at 1.8. - cont Lasix 40 mg IV q8 - atorvastatin 80 mg HS Non-ST elevated myocardial infarction-likely secondary to demand ischemia, no chest pain. As above, clean coronaries. Continue Plavix, carvedilol, and aspirin. Troponin maxed at 0.92, then down trending. Acute encephalopathy, metabolic patient with acute respiratory failure, CHF with low EF, Hypernatremia, noncompliant with bipap. Being followed by Neuro, MRI and EEG ordered. Haldol and ativan prn agitation. Hypertension-continue coreg, hydralazine prn. will need JOHNATHAN-I after aggressive diuresis. DVT prophylaxis: Heparin Case discussed with Dr. Alvarez, appreciate his recommendations. Rupal Person MD R3 Feb 25, 2016 07:44
[2016-02-25] MEDS: MUPIROCIN 2% OINT 1 APPLIC/GM SYR EACH NARE SCH ×2 (08:22→22:17)
[2016-02-25] MEDS: CARVEDILOL 3.125 MG TAB PO SCH ×2 (08:22→21:59)
[2016-02-25] MEDS: HEPARIN SODIUM - SQ 10,000 UNITS/ML VIAL SQ SCH ×2 (08:22→21:59)
[2016-02-25] MEDS: ASPIRIN 81 MG CHEW TAB CHEW SCH (08:22)
[2016-02-25] MEDS: CLOPIDOGREL 75 MG TAB PO SCH (08:22)
[2016-02-25] MEDS: SODIUM CHLORIDE 0.9% FLUSH 5 ML FLUSH IVF SCH ×2 (08:22→22:03)
[2016-02-25] MEDS: POTASSIUM CHLORIDE 20 MEQ CONTROLLED RELEASE TAB PO SCH ×2 (08:22→22:01)
[2016-02-25] MEDS: LORazepam 2 MG/ML VIAL IV PUSH PRN (08:23)
--- NOTE | 2016-02-25 08:24 | HHI.FPPN ---
Subjective Remarks Patient seen and examined this am. She did well overnight, no agitation. Family has been at bedside. Objective Vitals Vital Signs Date Time Temp Pulse Resp B/P Pulse Ox O2 Delivery O2 Flow Rate FiO2 02/25/16 06:00 85 02/25/16 04:00 86 02/25/16 04:00 98.5 86 11 145/85 90 02/25/16 02:00 97 02/25/16 00:00 98.4 82 22 151/96 100 02/25/16 00:00 98 02/24/16 22:30 98 02/24/16 22:00 98 02/24/16 20:13 97 Nasal Cannula 3.00 02/24/16 20:05 99.1 02/24/16 20:00 112 29 188/113 94 02/24/16 20:00 98 02/24/16 18:00 98 02/24/16 16:00 69 02/24/16 16:00 72 12 143/80 100 02/24/16 14:00 70 02/24/16 12:00 83 02/24/16 12:00 97.7 82 16 143/80 100 02/24/16 10:35 155/99 02/24/16 10:34 97.4 99 30 181/97 99 02/24/16 10:00 80 I/O 02/24/16 02/24/16 02/24/16 02/25/16 02/25/16 02/25/16 07:00 15:00 23:00 07:00 15:00 23:00 Intake Total 120 ml 347 ml 328 ml Output Total 550 ml 990 ml 450 ml 575 ml Balance -430 ml -990 ml -103 ml -247 ml Intake Oral 120 ml 100 ml IV Total 0 ml 347 ml 228 ml Output Urine Total 550 ml 990 ml 450 ml 575 ml # Bowel Movements 0 Result Diagram: 02/25/16 0458 02/25/16 0458 Objective Remarks GENERAL: 66 yo AA, agitated, leg restraints, socks on hand, mild distress SKIN: Warm and dry. HEAD: Atraumatic. Normocephalic. EYES: Pupils equal and round. No scleral icterus. No injection or drainage. ENT: No nasal bleeding or discharge. Mucous membranes pink and moist. NECK: Trachea midline. No JVD. CARDIOVASCULAR: Regular rate and rhythm. RESPIRATORY: Decreased breath sounds. Scattered crackles. Labored breathing. GASTROINTESTINAL: Abdomen soft, non-tender, nondistended. MUSCULOSKELETAL: Extremities without clubbing, cyanosis, or edema. No obvious deformities. NEUROLOGICAL: Moves arm and legs. PSYCHIATRIC: Agitated. A/P Assessment and Plan 66-year-old Bev male with past medical history of hypertension, hyperlipidemia, BPH who came to the emergency room for evaluation of worsening shortness of breath, found to be in acute CHF exacerbation, altered mental status, and now respiratory distress. Respiratory Distress: increased oxygen to 5L, place patient back on BiPap. 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 Alvarez Acute systolic congestive heart failure exacerbation EF of 15-20%-patient has cardiomegaly on chest x-ray, BNP is 5000. Has been evaluated by cards: nonobstructive CAD, continue diuresis, ASA/plavix, coreg. Will need JOHNATHAN-I after diuresis. Status post cardiac catheterization: no obstructive coronary artery disease, NSTEMI secondary in nature, acute systolic heart failure class 4 , severe pulmonary HTN, elevated wedge pressure, decreased cardiac index at 1.8. - cont Lasix 40 mg IV q8 - atorvastatin 80 mg HS Non-ST elevated myocardial infarction-likely secondary to demand ischemia, no chest pain. As above, clean coronaries. Continue Plavix, carvedilol, and aspirin. Troponin maxed at 0.92, then down trending. Acute encephalopathy, metabolic patient with acute respiratory failure, CHF with low EF, Hypernatremia, noncompliant with bipap. Being followed by Neuro, MRI and EEG ordered. Haldol and ativan prn agitation. Hypertension-continue coreg, hydralazine prn. will need JOHNATHAN-I after aggressive diuresis. DVT prophylaxis: Heparin Case discussed with Dr. Alvarez, appreciate his recommendations. Rupal Person MD R3 Feb 25, 2016 08:24
[2016-02-25] MEDS ORDERED: LABETALOL HCL 100 MG/20 ML VIAL IVS PRN (08:45)
--- NOTE | 2016-02-25 09:24 | RADRPT ---
EXAM DATE/TIME: 02/25/2016 08:44 [facility] COMPARISON: CHEST SINGLE AP, February 24, 2016, 9:51. INDICATIONS : Respiratory failure. MEDICAL HISTORY : Congestive heart failure. SURGICAL HISTORY : None. ENCOUNTER: Subsequent ACUITY: 4 - 6 days PAIN SCORE: Non-responsive. LOCATION: Bilateral chest FINDINGS: Heart is enlarged. Mild interstitial edema is present. Minimal bibasilar parenchymal changes are no marcy, worse on the left than right. CONCLUSION: Stable chest. Yunier Delgado MD FACR on February 25, 2016 at 9:18 Board Certified Radiologist. This report was verified electronically.
--- NOTE | 2016-02-25 09:41 | PD.CARD.PN ---
Subjective Subjective Remarks Events over night noted, encephalopathic, NSVT multiple times anywhere from 3- 15 beats Objective Medications Current Medications Medications (Trade) Dose Ordered Sig/Rogelio Route Start Time Stop Time Status Last Admin (NS 1000 ml Inj) 1,000 ml @ 100 mls/hr Q10H IV 02/22/16 21:00 Hold 02/22/16 22:41 (Tylenol) 650 mg Q4H PRN PO 02/22/16 20:15 (Zofran Inj) 4 mg Q6H PRN IVP 02/22/16 20:15 (Compazine Supp) 25 mg Q12H PRN [place] 02/22/16 20:15 (Dulcolax Supp) 10 mg DAILY PRN [place] 02/22/16 20:15 (Milk Of Magnesia Liq) 30 ml Q12H PRN PO 02/22/16 20:15 (Senokot) 17.2 mg Q12H PRN PO 02/22/16 20:15 (Restoril) 15 mg HS PRN PO 02/22/16 20:15 02/23/16 22:19 (KCl) 20 meq Q12HR PO 02/22/16 21:00 02/24/16 09:39 (Aspirin Chew) 81 mg DAILY CHEW 02/23/16 09:00 02/24/16 09:39 (Plavix) 75 mg DAILY PO 02/23/16 09:00 02/24/16 09:39 (Lipitor) 80 mg HS PO 02/23/16 21:00 (NS Flush) 2 ml BID IVF 02/23/16 21:00 02/25/16 08:22 (NS Flush) 2 ml UNSCH PRN IVF 02/23/16 10:30 Miscellaneous Information Patient in critical care unit? Ass... Q361D XX 02/23/16 16:45 02/23/16 16:45 (Chlorhexidine 2% Cloth) 3 pack DAILY@04 TOP 02/24/16 04:00 02/28/16 04:01 02/25/16 04:30 (Chlorhexidine 2% Cloth) 3 pack UNSCH PRN TOP 02/23/16 16:45 02/28/16 16:40 (Lasix Inj) 40 mg Q8H IV PUSH 02/23/16 17:00 02/25/16 08:10 (Heparin Inj) 5,000 units Q12HR SQ 02/23/16 21:00 02/25/16 08:22 (Ativan Inj) 1 mg Q4H PRN IV PUSH 02/24/16 03:15 02/25/16 08:23 (Haldol Inj) 2 mg Q6H PRN IM 02/24/16 08:45 02/25/16 04:39 (Bactroban Nasal 2% Oint) 1 applic BID EACH NARE 02/24/16 09:00 03/02/16 08:59 02/25/16 08:22 (Coreg) 3.125 mg Q12HR PO 02/24/16 21:00 (Narcan Inj) 0.4 mg UNSCH PRN IV 02/24/16 11:30 02/24/16 12:16 Hydralazine HCl 10 mg 10 mg Q4H PRN IV PUSH 02/24/16 21:45 02/24/16 21:50 Amiodarone HCl 450 mg/Dextrose 250 ml @ 0 mls/hr CONTINUOUS IV 02/25/16 03:00 02/25/16 04:29 (Precedex Inj) 50 ml @ 0 mls/hr TITRATE IV 02/25/16 08:45 (Trandate Inj) 10 mg Q2H PRN IVS 02/25/16 08:45 Vital Signs / I&O Vital Signs Date Time Temp Pulse Resp B/P Pulse Ox O2 Delivery O2 Flow Rate FiO2 02/25/16 08:14 100 Nasal Cannula 3.00 02/25/16 08:00 98.9 79 18 143/87 100 02/25/16 08:00 79 02/25/16 06:00 85 02/25/16 04:00 86 02/25/16 04:00 98.5 86 11 145/85 90 02/25/16 02:00 97 02/25/16 00:00 98.4 82 22 151/96 100 02/25/16 00:00 98 02/24/16 22:30 98 02/24/16 22:00 98 02/24/16 20:13 97 Nasal Cannula 3.00 02/24/16 20:05 99.1 02/24/16 20:00 112 29 188/113 94 02/24/16 20:00 98 02/24/16 18:00 98 02/24/16 16:00 69 02/24/16 16:00 72 12 143/80 100 02/24/16 14:00 70 02/24/16 12:00 83 02/24/16 12:00 97.7 82 16 143/80 100 02/24/16 10:35 155/99 02/24/16 10:34 97.4 99 30 181/97 99 02/24/16 10:00 80 I/O 02/24/16 02/24/16 02/24/16 02/25/16 02/25/16 02/25/16 07:00 15:00 23:00 07:00 15:00 23:00 Intake Total 120 ml 347 ml 328 ml Output Total 550 ml 990 ml 450 ml 575 ml Balance -430 ml -990 ml -103 ml -247 ml Intake Oral 120 ml 100 ml IV Total 0 ml 347 ml 228 ml Output Urine Total 550 ml 990 ml 450 ml 575 ml # Bowel Movements 0 Physical Exam GENERAL: Unresponsive SKIN: Warm and dry. HEAD: Atraumatic. Normocephalic. EYES: Pupils equal and round. No scleral icterus. No injection or drainage. ENT: No nasal bleeding or discharge. Mucous membranes pink and moist. NECK: Trachea midline. Mild JVD CARDIOVASCULAR: Regular rate and rhythm. RESPIRATORY: Decreased breath sounds bilaterally GASTROINTESTINAL: Abdomen soft, non-tender, nondistended. Hepatic and splenic margins not palpable. MUSCULOSKELETAL: Extremities without clubbing, cyanosis, or edema. No obvious deformities. NEUROLOGICAL: No obvious cranial nerve deficits. Motor grossly within normal limits. PSYCHIATRIC: Unable to obtain Laboratory Laboratory Tests Test 02/24/16 02/24/16 02/25/16 02/25/16 09:39 23:11 04:08 04:58 Blood Gas Puncture Site RT RADIAL Blood Gas Patient Temperature 98.6 Blood Gas HCO3 25 mmol/L Blood Gas Base Excess 0.9 mmol/L Blood Gas Oxygen Saturation 95 % Arterial Blood pH 7.44 Arterial Blood Partial 37 mmHg Pressure CO2 Arterial Blood Partial 96 mmHg Pressure O2 Arterial Blood Oxygen Content 15.8 Vol % Arterial Blood 2.3 % Carboxyhemoglobin Arterial Blood Methemoglobin 0.9 % Blood Gas Hemoglobin 11.8 G/DL Oxygen Delivery Device NASAL CANNULA Blood Gas Liter Flow 4 L/M Potassium Level 3.8 MEQ/L 4.1 MEQ/L Phosphorus Level 2.8 MG/DL Magnesium Level 2.0 MG/DL 2.1 MG/DL B-Type Natriuretic Peptide GREATER THAN 5000 PG/ML White Blood Count 11.4 TH/MM3 Red Blood Count 3.95 MIL/MM3 Hemoglobin 12.4 GM/DL Hematocrit 36.9 % Mean Corpuscular Volume 93.4 FL Mean Corpuscular Hemoglobin 31.4 PG Mean Corpuscular Hemoglobin 33.6 % Concent Red Cell Distribution Width 16.5 % Platelet Count 194 TH/MM3 Mean Platelet Volume 8.1 FL Neutrophils (%) (Auto) 82.8 % Lymphocytes (%) (Auto) 8.1 % Monocytes (%) (Auto) 8.4 % Eosinophils (%) (Auto) 0.3 % Basophils (%) (Auto) 0.4 % Neutrophils # (Auto) 9.4 TH/MM3 Lymphocytes # (Auto) 0.9 TH/MM3 Monocytes # (Auto) 1.0 TH/MM3 Eosinophils # (Auto) 0.0 TH/MM3 Basophils # (Auto) 0.0 TH/MM3 CBC Comment DIFF FINAL Differential Comment Sodium Level 146 MEQ/L Chloride Level 111 MEQ/L Carbon Dioxide Level 26.0 MEQ/L Anion Gap 9 MEQ/L Blood Urea Nitrogen 23 MG/DL Creatinine 1.37 MG/DL Estimat Glomerular Filtration 63 ML/MIN Rate Random Glucose 120 MG/DL Calcium Level 8.4 MG/DL Assessment and Plan Problem List: (1) NICM (nonischemic cardiomyopathy) (2) Acute systolic heart failure (3) Acute kidney injury superimposed on CKD (4) Hypertension (5) NSTEMI (non-ST elevated myocardial infarction) Assessment and Plan 1) Biventricular heart failure, NICM EF 15-20% 2) No obstructive CAD 3) Continue Amiodarone drip for NSVT with EF decreased 4) Follow electrolytes and replace as necessary 5) Continue diuresis, change Lopressor to Coreg 6) ASA/Plavix 7) After diuresis, most likely needs JOHNATHAN-I 8) QTc not increased with Haldol 9) Encephalopathy work up per primary/neuro Danilo Serra DO Feb 25, 2016 09:41
[2016-02-25] MEDS: DEXMEDETOMIDINE INJ 50 ML IV SCH ×2 (10:47→21:59)
--- NOTE | 2016-02-25 13:42 | HHI.PR ---
Review/Management Diagnosis probable metabolic encephalopathy Plan MRI brain when more stable to assess for cva Diagnosis/Plan: Subjective Subjective Comments No acute events reported has been aggitated and not able to have MRI Active Medications Current Medications Medications (Trade) Dose Ordered Sig/Rogelio Route Start Time Stop Time Status Last Admin (NS 1000 ml Inj) 1,000 ml @ 100 mls/hr Q10H IV 02/22/16 21:00 Hold 02/22/16 22:41 (Tylenol) 650 mg Q4H PRN PO 02/22/16 20:15 (Zofran Inj) 4 mg Q6H PRN IVP 02/22/16 20:15 (Compazine Supp) 25 mg Q12H PRN [place] 02/22/16 20:15 (Dulcolax Supp) 10 mg DAILY PRN [place] 02/22/16 20:15 (Milk Of Magnesia Liq) 30 ml Q12H PRN PO 02/22/16 20:15 (Senokot) 17.2 mg Q12H PRN PO 02/22/16 20:15 (Restoril) 15 mg HS PRN PO 02/22/16 20:15 02/23/16 22:19 (KCl) 20 meq Q12HR PO 02/22/16 21:00 02/24/16 09:39 (Aspirin Chew) 81 mg DAILY CHEW 02/23/16 09:00 02/24/16 09:39 (Plavix) 75 mg DAILY PO 02/23/16 09:00 02/24/16 09:39 (Lipitor) 80 mg HS PO 02/23/16 21:00 (NS Flush) 2 ml BID IVF 02/23/16 21:00 02/25/16 08:22 (NS Flush) 2 ml UNSCH PRN IVF 02/23/16 10:30 Miscellaneous Information Patient in critical care unit? Ass... Q361D XX 02/23/16 16:45 02/23/16 16:45 (Chlorhexidine 2% Cloth) 3 pack DAILY@04 TOP 02/24/16 04:00 02/28/16 04:01 02/25/16 04:30 (Chlorhexidine 2% Cloth) 3 pack UNSCH PRN TOP 02/23/16 16:45 02/28/16 16:40 (Lasix Inj) 40 mg Q8H IV PUSH 02/23/16 17:00 02/25/16 08:10 (Heparin Inj) 5,000 units Q12HR SQ 02/23/16 21:00 02/25/16 08:22 (Ativan Inj) 1 mg Q4H PRN IV PUSH 02/24/16 03:15 02/25/16 08:23 (Haldol Inj) 2 mg Q6H PRN IM 02/24/16 08:45 02/25/16 04:39 (Bactroban Nasal 2% Oint) 1 applic BID EACH NARE 02/24/16 09:00 03/02/16 08:59 02/25/16 08:22 (Coreg) 3.125 mg Q12HR PO 02/24/16 21:00 (Narcan Inj) 0.4 mg UNSCH PRN IV 02/24/16 11:30 02/24/16 12:16 Hydralazine HCl 10 mg 10 mg Q4H PRN IV PUSH 02/24/16 21:45 02/24/16 21:50 Amiodarone HCl 450 mg/Dextrose 250 ml @ 0 mls/hr CONTINUOUS IV 02/25/16 03:00 02/25/16 10:39 (Precedex Inj) 50 ml @ 0 mls/hr TITRATE IV 02/25/16 08:45 02/25/16 10:47 (Trandate Inj) 10 mg Q2H PRN IVS 02/25/16 08:45 (Lopressor Inj) 2.5 mg Q6H IV PUSH 02/25/16 14:00 Allergies Allergies Coded Allergies No Known Allergies (Unverified02/22/16) Exam I&O / VS 02/24/16 02/24/16 02/25/16 15:00 23:00 07:00 Intake Total 347 ml 328 ml Output Total 990 ml 450 ml 575 ml Balance -990 ml -103 ml -247 ml Intake Oral 100 ml IV Total 347 ml 228 ml Output Urine Total 990 ml 450 ml 575 ml Vital Signs Date Time Temp Pulse Resp B/P Pulse Ox O2 Delivery O2 Flow Rate FiO2 02/25/16 12:00 Bi-Pap 40 02/25/16 12:00 97.2 80 15 126/78 100 02/25/16 12:00 80 02/25/16 10:47 100 Bi-Pap 40 02/25/16 10:00 79 02/25/16 08:14 100 Nasal Cannula 3.00 02/25/16 08:00 98.9 79 18 143/87 100 02/25/16 08:00 79 02/25/16 06:00 85 02/25/16 04:00 86 02/25/16 04:00 98.5 86 11 145/85 90 02/25/16 02:00 97 02/25/16 00:00 98.4 82 22 151/96 100 02/25/16 00:00 98 02/24/16 22:30 98 02/24/16 22:00 98 02/24/16 20:13 97 Nasal Cannula 3.00 02/24/16 20:05 99.1 02/24/16 20:00 112 29 188/113 94 02/24/16 20:00 98 02/24/16 18:00 98 02/24/16 16:00 69 02/24/16 16:00 72 12 143/80 100 02/24/16 14:00 70 Exam Comments lethargic PERRL MOTOR--no spontaneous limb movement, does withdraw BLE to tactile stim Objective Micro and Labs Laboratory Tests Test 02/24/16 02/25/16 02/25/16 23:11 04:08 04:58 Potassium Level 3.8 4.1 Phosphorus Level 2.8 Magnesium Level 2.0 2.1 B-Type Natriuretic Peptide GREATER THAN 5000 White Blood Count 11.4 Red Blood Count 3.95 Hemoglobin 12.4 Hematocrit 36.9 Mean Corpuscular Volume 93.4 Mean Corpuscular Hemoglobin 31.4 Mean Corpuscular Hemoglobin 33.6 Concent Red Cell Distribution Width 16.5 Platelet Count 194 Mean Platelet Volume 8.1 Neutrophils (%) (Auto) 82.8 Lymphocytes (%) (Auto) 8.1 Monocytes (%) (Auto) 8.4 Eosinophils (%) (Auto) 0.3 Basophils (%) (Auto) 0.4 Neutrophils # (Auto) 9.4 Lymphocytes # (Auto) 0.9 Monocytes # (Auto) 1.0 Eosinophils # (Auto) 0.0 Basophils # (Auto) 0.0 CBC Comment DIFF FINAL Differential Comment Sodium Level 146 Chloride Level 111 Carbon Dioxide Level 26.0 Anion Gap 9 Blood Urea Nitrogen 23 Creatinine 1.37 Estimat Glomerular Filtration 63 Rate Random Glucose 120 Calcium Level 8.4 Augustine Frances PhD Feb 25, 2016 13:42
--- NOTE | 2016-02-25 13:57 | PD.CONS ---
[facility] Service Critical Care Medicine Consult Requested By Dr. Weems/Dr. Person Reason for Consult Acute respiratory failure/CHF with possible need for intubation Primary Care Physician Unknown History of Present Illness 66-year-old male who was transferred from [facility] [place] to [facility] ER on February 22, 2016 with dyspnea on exertion which had been worsening over the last 1 year, chest pains with exertion. He had an elevated troponin of 0.92. 2 -D echo revealed LVEF 10-15% Patient underwent cardiac catheterization after evaluation by Dr. Serra from cardiology. Cardiac catheter revealed normal coronaries. Patient was diagnosed to have a nonischemic cardiomyopathy. He is being diuresed. I was consulted by Dr. Person this morning as patient had been off BiPAP overnight and was on 2 L nasal cannula however was in respiratory extremis breathing about 30-40 times per minute with the concern that he may need intubation. When I evaluated the patient he had just received Ativan earlier and was extremely drowsy and not arousable. He was using accessory muscles of respiration breathing in the 30s. I immediately ordered BiPAP to be initiated. He has been diuresing well with Lasix. Patient had runs of nonsustained V. tach overnight and was started on an amiodarone drip per protocol. History was obtained by reviewing records, discussion with Dr. Person , PER DIEM PHYSICAL THERAPIST ASSISTANT as well as Dr. Serra previously. Review of Systems ROS Limitations: Altered Mental Status Past Family Social History Allergies: Coded Allergies: No Known Allergies (Unverified , 02/22/16) Past Medical History Hypertension, CHF Past Surgical History None Reported Medications Outpatient medications include metoprolol 50 mg by mouth twice a day, Norvasc 5 mg daily, Lasix 20 mg daily, potassium chloride 20 and cues. Daily Active Ordered Medications Current Medications Furosemide (Lasix Inj) 100 mg ONCE ONCE IV PUSH Last administered on 02/22/16 20:04; Start 02/22/16 at 19:30; Stop 02/22/16 at 19:33; Status DC Nitroglycerin (Nitroglycerin 2% Oint) 1 inch ONCE ONCE TOPICAL Last administered on 02/22/16 20:04; Start 02/22/16 at 19:30; Stop 02/22/16 at 19:33; Status DC Clopidogrel Bisulfate (Plavix) 300 mg ONCE ONCE PO Last administered on 20:04; Start 02/22/16 at 19:30; Stop 02/22/16 at 19:33; Status DC Enoxaparin Sodium (Lovenox Inj) 100 mg ONCE ONCE SQ Last administered on 20:04; Start 02/22/16 at 19:30; Stop 02/22/16 at 19:33; Status DC Aspirin 81 mg 81 mg ONCE ONCE CHEW Last administered on 02/22/16 20:02; Start 02/22/16 at 19:30; Stop 02/22/16 at 19:33; Status DC Sodium Chloride (NS 1000 ml Inj) 1,000 ml @ 100 mls/hr Q10H IV Last administered on 02/22/16 22:41; Start 02/22/16 at 21:00; Status Hold IV Flush (NS Flush) 2 ml UNSCH PRN FLUSH FLUSH AFTER USING IV ACCESS; Start 02/22/16 at 20:15; Stop 02/23/16 at 17:04; Status DC IV Flush (NS Flush) 2 ml BID FLUSH Last administered on 02/22/16 22:41; Start 02/22/16 at 21:00; Stop 02/23/16 at 17:04; Status DC Acetaminophen (Tylenol) 650 mg Q4H PRN PO TEMP > 100.4; Start 02/22/16 at 20:15 Ondansetron HCl (Zofran Inj) 4 mg Q6H PRN IVP NAUSEA OR VOMITING; Start at 20:15 Prochlorperazine (Compazine Supp) 25 mg Q12H PRN CA NAUSEA OR VOMITING; Start 02/22/16 at 20:15 Bisacodyl (Dulcolax Supp) 10 mg DAILY PRN CA CONSTIPATION; Start 02/22/16 at 20: 15 Magnesium Hydroxide (Milk Of Magnesia Liq) 30 ml Q12H PRN PO CONSTIPATION; Start 02/22/16 at 20:15 Sennosides (Senokot) 17.2 mg Q12H PRN PO CONSTIPATION; Start 02/22/16 at 20:15 Temazepam (Restoril) 15 mg HS PRN PO INSOMNIA Last administered on 02/23/16 22: 19; Start 02/22/16 at 20:15 Enoxaparin Sodium (Lovenox Inj) 40 mg Q24H SQ ; Start 02/22/16 at 21:00; Stop 02/23/16 at 10:31; Status DC Furosemide (Lasix Inj) 40 mg BID@09,18 IV PUSH Last administered on 02/23/16 16 :52; Start 02/23/16 at 09:00; Stop 02/23/16 at 17:03; Status DC Potassium Chloride (KCl) 20 meq Q12HR PO Last administered on 02/24/16 09:39; Start 02/22/16 at 21:00 Potassium Chloride (KCl) 30 meq ONCE ONCE PO Last administered on 02/22/16 23: 55; Start 02/22/16 at 20:15; Stop 02/22/16 at 20:54; Status DC Lisinopril (Prinivil) 2.5 mg DAILY PO ; Start 02/23/16 at 09:00; Stop 02/23/16 at 09:00; Status DC Metoprolol Tartrate (Lopressor) 12.5 mg Q12HR PO Last administered on 02/24/16 09:39; Start 02/23/16 at 09:00; Stop 02/24/16 at 10:02; Status DC Aspirin (Aspirin Chew) 81 mg DAILY CHEW Last administered on 02/24/16 09:39; Start 02/23/16 at 09:00 Albuterol/ Ipratropium (Duoneb Neb) 1 ampule Q4HR NEB PRN NEB SHORTNESS OF BREATH Last administered on 02/23/16 23:01; Start 02/23/16 at 07:30 Clopidogrel Bisulfate (Plavix) 75 mg DAILY PO Last administered on 02/24/16 09: 39; Start 02/23/16 at 09:00 Atorvastatin Calcium 80 mg 80 mg HS PO ; Start 02/23/16 at 21:00 Heparin Sodium/ Sodium Chloride (Heparin-NS/Pf Inj) 500 ml @ As Directed STK- MED ONCE .ROUTE Last administered on 02/23/16 08:56; Start 02/23/16 at 08:56; Stop 02/23/16 at 09:08; Status DC Midazolam HCl (Versed Inj) 2 mg STK-MED ONCE .ROUTE Last administered on 09:07; Start 02/23/16 at 09:07; Stop 02/23/16 at 09:11; Status DC Fentanyl Citrate (fentaNYL INJ) 100 mcg STK-MED ONCE .ROUTE ; Start 02/23/16 at 09:07; Stop 02/23/16 at 09:11; Status DC Hydralazine HCl (Apresoline Inj) 20 mg STK-MED ONCE .ROUTE Last administered on 02/23/16 10:01; Start 02/23/16 at 10:01; Stop 02/23/16 at 10:03; Status DC Hydralazine HCl (Apresoline Inj) 20 mg STK-MED ONCE .ROUTE Last administered on 02/23/16 10:17; Start 02/23/16 at 10:17; Stop 02/23/16 at 10:18; Status DC IV Flush (NS Flush) 2 ml BID IVF Last administered on 02/25/16 08:22; Start 02/23/16 at 21:00 IV Flush (NS Flush) 2 ml UNSCH PRN IVF FLUSH AFTER USING IV ACCESS; Start at 10:30 Miscellaneous Information 1 ONCE ONCE XX ; Start 02/23/16 at 10:30; Stop at 10:31; Status DC Labetalol HCl (Trandate Inj) 100 mg STK-MED ONCE .ROUTE Last administered on 10:28; Start 02/23/16 at 10:28; Stop 02/23/16 at 10:29; Status DC Iohexol (OMNIPAQUE 350 INJ (Coil Taper)) 100 ml STK-MED ONCE OTHER ; Start at 10:00; Stop 02/23/16 at 11:19; Status DC Miscellaneous Information Patient in critical care unit? Ass... Q361D XX Last administered on 02/23/16 16:45; Start 02/23/16 at 16:45 Chlorhexidine Gluconate (Chlorhexidine 2% Cloth) 3 pack DAILY@04 TOP Last administered on 02/25/16 04:30; Start 02/24/16 at 04:00; Stop 02/28/16 at 04:01 Chlorhexidine Gluconate (Chlorhexidine 2% Cloth) 3 pack UNSCH PRN TOP HYGIENIC CARE; Start 02/23/16 at 16:45; Stop 02/28/16 at 16:40 Furosemide (Lasix Inj) 40 mg Q8H IV PUSH Last administered on 02/25/16 08:10; Start 02/23/16 at 17:00 Heparin Sodium (Porcine) (Heparin Inj) 5,000 units Q12HR SQ Last administered on 02/25/16 08:22; Start 02/23/16 at 21:00 Lorazepam (Ativan Inj) 1 mg Q4H PRN IV PUSH AGITATION Last administered on 08:23; Start 02/24/16 at 03:15 Haloperidol Lactate (Haldol Inj) 2 mg Q6H PRN IM agitation Last administered on 02/25/16 04:39; Start 02/24/16 at 08:45 Mupirocin (Bactroban Nasal 2% Oint) 1 applic BID EACH NARE Last administered on 02/25/16 08:22; Start 02/24/16 at 09:00; Stop 03/02/16 at 08:59 Carvedilol (Coreg) 3.125 mg Q12HR PO ; Start 02/24/16 at 21:00 Naloxone HCl 0.4 mg 0.4 mg UNSCH PRN IV SEE LABEL COMMENTS Last administered on 02/24/16 12:16; Start 02/24/16 at 11:30 Potassium Chloride 100 ml @ 50 mls/hr Q2H IV Last administered on 02/24/16 17: 49; Start 02/24/16 at 16:00; Stop 02/24/16 at 19:59; Status DC Potassium Chloride (KCl 20 Meq Premix Inj) 100 ml @ As Directed STK-MED ONCE .ROUTE ; Start 02/24/16 at 15:38; Stop 02/24/16 at 15:39; Status DC Hydralazine HCl (Apresoline Inj) 10 mg Q4H PRN IV PUSH SBP>160, DBP>90 Last administered on 02/24/16 21:50; Start 02/24/16 at 21:45 Labetalol HCl 20 mg 20 mg ONCE ONCE IV PUSH Last administered on 02/25/16 04: 28; Start 02/24/16 at 23:00; Stop 02/24/16 at 23:01; Status DC Amiodarone HCl 150 mg/Dextrose 100 ml @ 600 mls/hr NOW ONCE IV Last administered on 02/25/16 04:30; Start 02/25/16 at 03:00; Stop 02/25/16 at 03:09; Status DC Amiodarone HCl 450 mg/Dextrose 250 ml @ 0 mls/hr CONTINUOUS IV Last administered on 02/25/16 10:39; Start 02/25/16 at 03:00 Dexmedetomidine HCl (Precedex Inj) 50 ml @ 0 mls/hr TITRATE IV Last administered on 02/25/16 10:47; Start 02/25/16 at 08:45 Labetalol HCl (Trandate Inj) 10 mg Q2H PRN IVS SBP greater than 150mm Hg; Start 02/25/16 at 08:45 Family History Mother had a stroke at age 80. Father had heart problems. History of alcohol abuse. Brother with history of stroke at age 50. Social History No history of alcohol abuse, illicit drug abuse or tobacco abuse. Physical Exam Vital Signs Vital Signs Date Time Temp Pulse Resp B/P Pulse Ox O2 Delivery O2 Flow Rate FiO2 02/25/16 12:00 Bi-Pap 40 02/25/16 12:00 97.2 80 15 126/78 100 02/25/16 12:00 80 02/25/16 10:47 100 Bi-Pap 40 02/25/16 10:00 79 02/25/16 08:14 100 Nasal Cannula 3.00 02/25/16 08:00 98.9 79 18 143/87 100 02/25/16 08:00 79 02/25/16 06:00 85 02/25/16 04:00 86 02/25/16 04:00 98.5 86 11 145/85 90 02/25/16 02:00 97 02/25/16 00:00 98.4 82 22 151/96 100 02/25/16 00:00 98 02/24/16 22:30 98 02/24/16 22:00 98 02/24/16 20:13 97 Nasal Cannula 3.00 02/24/16 20:05 99.1 02/24/16 20:00 112 29 188/113 94 02/24/16 20:00 98 02/24/16 18:00 98 02/24/16 16:00 69 02/24/16 16:00 72 12 143/80 100 02/24/16 14:00 70 Physical Exam HEENT/Neuro: No pallor or icterus, tongue moist, drowsy, disoriented, not following commands, on BiPAP with full facemask Neck: Raised JVD Chest/pulmonary: Good air entry bilaterally, scattered rhonchi, bilateral crackles Cardiovascular: S1-S2 regular no gallop or murmur GI/abdomen: Soft, nontender, bowel sounds present Extremities: Warm bilaterally, no edema Laboratory Laboratory Tests Test 02/24/16 02/25/16 02/25/16 23:11 04:08 04:58 Potassium Level 3.8 4.1 Phosphorus Level 2.8 Magnesium Level 2.0 2.1 B-Type Natriuretic Peptide GREATER THAN 5000 White Blood Count 11.4 Red Blood Count 3.95 Hemoglobin 12.4 Hematocrit 36.9 Mean Corpuscular Volume 93.4 Mean Corpuscular Hemoglobin 31.4 Mean Corpuscular Hemoglobin 33.6 Concent Red Cell Distribution Width 16.5 Platelet Count 194 Mean Platelet Volume 8.1 Neutrophils (%) (Auto) 82.8 Lymphocytes (%) (Auto) 8.1 Monocytes (%) (Auto) 8.4 Eosinophils (%) (Auto) 0.3 Basophils (%) (Auto) 0.4 Neutrophils # (Auto) 9.4 Lymphocytes # (Auto) 0.9 Monocytes # (Auto) 1.0 Eosinophils # (Auto) 0.0 Basophils # (Auto) 0.0 CBC Comment DIFF FINAL Differential Comment Sodium Level 146 Chloride Level 111 Carbon Dioxide Level 26.0 Anion Gap 9 Blood Urea Nitrogen 23 Creatinine 1.37 Estimat Glomerular Filtration 63 Rate Random Glucose 120 Calcium Level 8.4 Result Diagram: 02/25/168 02/25/16 0458 Imaging CXR 02/24: Personally reviewed: Cardiomegaly, pulmonary basilar prominence with pulmonary edema Last Impressions Chest X-Ray 02/25/16 0000 Signed Impressions: Service Date/Time: Thursday, February 25, 2016 08:44 - CONCLUSION: Stable chest. Yunier Delgado MD FACR Head CT 02/24/16 0000 Signed Impressions: Service Date/Time: Wednesday, February 24, 2016 10:53 - CONCLUSION: Moderate motion artifact otherwise negative. Yunier Delgado MD FACR Assessment and Plan Assessment and Plan 66-year-old male with: Encephalopathy Acute respiratory failure requiring BiPAP Acute decompensated systolic heart failure Nonischemic cardiomyopathy Elevated troponin CKD stage III Hypertension Plan: Neuro: Avoid Ativan. We will use Precedex if needed to control agitation. Follow neuro status. Cardiovascular: Continue diuresis. On amiodarone drip for ventricular ectopy. Continue beta aster, aspirin, Plavix, statin. Pulmonary: Initiated on BiPAP. If respiratory status decline despite BiPAP will require endotracheal intubation. Continue diuresis for pulmonary edema GI/liver: Nothing by mouth for now. May require Dobbhoff for tube feeds and medications. Renal/: Strict intake output, monitor and replete electro lites, follow BNP creatinine. Continue diuresis. ID: No antibiotics at this time. Watch for fever/leukocytosis. Endocrine: Watch for hyperglycemia, SSI for glycemic control if needed. Heme: Follow CBC Prophylaxis: SCDs/Lovenox Condition critical. Discussed with Dr. Serra/Dr. Weems/ Dr. Person/ PER DIEM PHYSICAL THERAPIST ASSISTANT Time spent on critical care excluding procedures 60 minutes Zack Alvarez MD Feb 25, 2016 13:57
[2016-02-25] MEDS: METOPROLOL TARTRATE 5 MG/5 ML VIAL IV PUSH SCH ×2 (14:00→20:00)
--- NOTE | 2016-02-25 14:27 | MG ---
cc: STEPHEN DELGADO M.D. Lab No: [id number] Date: 02/25/2016 Age: Sex: M Race: TECHNIQUE: 17 channel EEG. DESCRIPTION: The background rhythm reveals mild slowing in the theta range at roughly 6 Hz, amplitude is 10 microvolts. Later there is some slowing in the delta frequency. No lateralizing features are seen. No epileptiform discharges present. Photic stimulation is done but there is no driving response. INTERPRETATION: Abnormal study consistent with a moderate to severe encephalopathy. MD JOSEPHINE Dan/GORGE /2:05 PM /2:24 PM
--- NOTE | 2016-02-25 15:02 | EKG ---
Date Performed: 02/25/2016 Time Performed: 02:28:26 PTAGE: 66 years EKG: Probable Sinus rhythm with first degree AVB into wide complex tachycardia, probable ventricular tachycardia PVCs Leftward axis QRS changes V3/V4 may be due to LVH but cannot rule out anterior infarct Left ventricular hypert rophy Abnormal ECG PREVIOUS TRACING : 02/25/2016 02.27 Compared to the previous tracing, ventricular tachycardia n oted at the end of recording DOCTOR: Danilo Serra Interpretating Date/Time 02/25/2016 15:01:21
[2016-02-25] MEDS: ATORVASTATIN 80 MG TAB PO SCH (21:59)
[2016-02-26] VITALS (19 sets, daily range): BP systolic 126–148; BP diastolic 70–81; PULSE 48–56; RESP 10–20; TEMP 97.1–97.7; O2SAT 96–100
[2016-02-26] MEDS: METOPROLOL TARTRATE 5 MG/5 ML VIAL IV PUSH SCH (02:00)
[2016-02-26] MEDS: AMIODARONE 450 MG/D5W (EXCEL) 241 ML IV SCH ×4 (02:27→17:22)
[2016-02-26] MEDS: FUROSEMIDE 40 MG/4 ML VIAL IV PUSH SCH ×3 (02:28→15:56)
[2016-02-26] MEDS: HALOPERIDOL LACTATE 5 MG/ML AMP IM PRN ×2 (02:29→15:56)
--- NOTE | 2016-02-26 02:37 | RADRPT ---
EXAM DATE/TIME: 02/26/2016 01:47 [place] COMPARISON: CHEST SINGLE AP, February 25, 2016, 8:44. INDICATIONS : Dobhoff tube placement. MEDICAL HISTORY : Congestive heart failure. SURGICAL HISTORY : None. ENCOUNTER: Subsequent ACUITY: 4 - 6 days PAIN SCORE: Non-responsive. LOCATION: Bilateral chest FINDINGS: A single view of the chest demonstrates Dobbhoff tube placement with tip in stomach. Cardiomegaly wit h pulmonary vascular congestion and bibasilar densities. The cardiomediastinal contours are unremark able. Osseous structures are intact. CONCLUSION: Dobbhoff tube placement with tip in stomach. Cardiomegaly with bibasilar densities and pulmonary vasc ular congestion. Pete Nunes MD on February 26, 2016 at 2:35 Board Certified Radiologist. This report was verified electronically.
[2016-02-26 05:07] LABS: BASOPHIL % 0.5 % (0.0-2.0); EOSINOPHIL # 0.1 TH/MM3 (0-0.4); EOSINOPHIL % 1.8 % (0.0-4.0); HEMATOCRIT 36.6 % (39.0-51.0); HEMO FLAGS DIFF FINAL; LYMPH % 8.9 % (9.0-44.0); LYMPHOCYTE # 0.7 TH/MM3 (1.0-4.8); MEAN CELL VOLUME 93.4 FL (80.0-100.0); MEAN CORPUSCULAR HEMOGLOBIN 31.2 PG (27.0-34.0); MEAN CORPUSCULAR HGB CONC 33.4 % (32.0-36.0); MONO % 6.2 % (0.0-8.0); NEUT % 82.6 % (16.0-70.0); PLATELET COUNT 155 TH/MM3 (150-450); RED BLOOD COUNT 3.92 MIL/MM3 (4.50-5.90); RED CELL DISTRIBUTION WIDTH 16.3 % (11.6-17.2); WHITE BLOOD COUNT 7.3 TH/MM3 (4.0-11.0)
[2016-02-26 05:41] LABS: BICARBONATE 32.8 MEQ/L (21.0-32.0); POTASSIUM 3.5 MEQ/L (3.5-5.1)
[2016-02-26] MEDS: CHLORHEXIDINE GLUCONATE 2 % 1 PACK (2 CLOTHS)(taper/protocol) TOP SCH (05:55)
--- NOTE | 2016-02-26 08:52 | PD.CARD.PN ---
Subjective Subjective Remarks Still encephalopathic, no events over night Objective Medications Current Medications Medications (Trade) Dose Ordered Sig/Rogelio Route Start Time Stop Time Status Last Admin (NS 1000 ml Inj) 1,000 ml @ 100 mls/hr Q10H IV 02/22/16 21:00 Hold 02/22/16 22:41 (Tylenol) 650 mg Q4H PRN PO 02/22/16 20:15 (Zofran Inj) 4 mg Q6H PRN IVP 02/22/16 20:15 (Compazine Supp) 25 mg Q12H PRN TN 02/22/16 20:15 (Dulcolax Supp) 10 mg DAILY PRN TN 02/22/16 20:15 (Milk Of Magnesia Liq) 30 ml Q12H PRN PO 02/22/16 20:15 (Senokot) 17.2 mg Q12H PRN PO 02/22/16 20:15 (Restoril) 15 mg HS PRN PO 02/22/16 20:15 02/23/16 22:19 (KCl) 20 meq Q12HR PO 02/22/16 21:00 02/25/16 22:01 (Aspirin Chew) 81 mg DAILY CHEW 02/23/16 09:00 02/24/16 09:39 (Plavix) 75 mg DAILY PO 02/23/16 09:00 02/24/16 09:39 (Lipitor) 80 mg HS PO 02/23/16 21:00 02/25/16 21:59 (NS Flush) 2 ml BID IVF 02/23/16 21:00 02/25/16 22:03 (NS Flush) 2 ml UNSCH PRN IVF 02/23/16 10:30 Miscellaneous Information Patient in critical care unit? Ass... Q361D XX 02/23/16 16:45 02/23/16 16:45 (Chlorhexidine 2% Cloth) 3 pack DAILY@04 TOP 02/24/16 04:00 02/28/16 04:01 02/26/16 05:55 (Chlorhexidine 2% Cloth) 3 pack UNSCH PRN TOP 02/23/16 16:45 02/28/16 16:40 (Lasix Inj) 40 mg Q8H IV PUSH 02/23/16 17:00 02/26/16 02:28 (Heparin Inj) 5,000 units Q12HR SQ 02/23/16 21:00 02/25/16 21:59 (Haldol Inj) 2 mg Q6H PRN IM 02/24/16 08:45 02/26/16 02:29 (Bactroban Nasal 2% Oint) 1 applic BID EACH NARE 02/24/16 09:00 03/02/16 08:59 02/25/16 22:17 (Coreg) 3.125 mg Q12HR PO 02/24/16 21:00 02/25/16 21:59 (Narcan Inj) 0.4 mg UNSCH PRN IV 02/24/16 11:30 02/24/16 12:16 Hydralazine HCl 10 mg 10 mg Q4H PRN IV PUSH 02/24/16 21:45 02/24/16 21:50 Amiodarone HCl 450 mg/Dextrose 250 ml @ 0 mls/hr CONTINUOUS IV 02/25/16 03:00 02/26/16 02:27 (Precedex Inj) 50 ml @ 0 mls/hr TITRATE IV 02/25/16 08:45 02/25/16 21:59 (Trandate Inj) 10 mg Q2H PRN IVS 02/25/16 08:45 (Lopressor Inj) 2.5 mg Q6H IV PUSH 02/25/16 14:00 Vital Signs / I&O Vital Signs Date Time Temp Pulse Resp B/P Pulse Ox O2 Delivery O2 Flow Rate FiO2 02/26/16 08:01 100 25 02/26/16 06:00 54 02/26/16 05:00 97.1 56 20 143/81 100 02/26/16 04:00 99 Nasal Cannula 2.00 02/26/16 04:00 50 02/26/16 03:10 96 Nasal Cannula 2.00 02/26/16 02:00 56 02/26/16 01:36 99 25 02/26/16 00:00 50 02/26/16 00:00 97.7 50 17 134/76 100 02/26/16 00:00 100 Bi-Pap 40 02/25/16 22:10 100 25 02/25/16 22:00 73 02/25/16 20:00 100 Bi-Pap 40 02/25/16 20:00 97.5 74 16 131/76 100 02/25/16 20:00 74 02/25/16 19:36 100 BiPAP 25 02/25/16 19:36 100 25 02/25/16 18:00 77 02/25/16 17:53 100 40 02/25/16 16:00 77 02/25/16 16:00 Bi-Pap 40 02/25/16 16:00 97.2 76 14 128/80 100 02/25/16 14:00 60 02/25/16 12:00 Bi-Pap 40 02/25/16 12:00 97.2 80 15 126/78 100 02/25/16 12:00 80 02/25/16 10:47 100 Bi-Pap 40 02/25/16 10:00 79 I/O 02/25/16 02/25/16 02/25/16 02/26/16 02/26/16 02/26/16 07:00 15:00 23:00 07:00 15:00 23:00 Intake Total 328 ml 216 ml 234 ml 247 ml Output Total 575 ml 1050 ml 1200 ml 1400 ml Balance -247 ml -834 ml -966 ml -1153 ml Intake Oral 100 ml 80 ml 60 ml IV Total 228 ml 216 ml 154 ml 187 ml Output Urine Total 575 ml 1050 ml 1200 ml 1400 ml # Bowel Movements 0 Physical Exam GENERAL: Unresponsive SKIN: Warm and dry. HEAD: Atraumatic. Normocephalic. EYES: Pupils equal and round. No scleral icterus. No injection or drainage. ENT: No nasal bleeding or discharge. Mucous membranes pink and moist. NECK: Trachea midline. Mild JVD CARDIOVASCULAR: Regular rate and rhythm. RESPIRATORY: Decreased breath sounds bilaterally GASTROINTESTINAL: Abdomen soft, non-tender, nondistended. Hepatic and splenic margins not palpable. MUSCULOSKELETAL: Extremities without clubbing, cyanosis, or edema. No obvious deformities. NEUROLOGICAL: No obvious cranial nerve deficits. Motor grossly within normal limits. PSYCHIATRIC: Unable to obtain Laboratory Laboratory Tests Test 02/26/16 04:46 White Blood Count 7.3 TH/MM3 Red Blood Count 3.92 MIL/MM3 Hemoglobin 12.2 GM/DL Hematocrit 36.6 % Mean Corpuscular Volume 93.4 FL Mean Corpuscular Hemoglobin 31.2 PG Mean Corpuscular Hemoglobin 33.4 % Concent Red Cell Distribution Width 16.3 % Platelet Count 155 TH/MM3 Mean Platelet Volume 8.1 FL Neutrophils (%) (Auto) 82.6 % Lymphocytes (%) (Auto) 8.9 % Monocytes (%) (Auto) 6.2 % Eosinophils (%) (Auto) 1.8 % Basophils (%) (Auto) 0.5 % Neutrophils # (Auto) 6.0 TH/MM3 Lymphocytes # (Auto) 0.7 TH/MM3 Monocytes # (Auto) 0.5 TH/MM3 Eosinophils # (Auto) 0.1 TH/MM3 Basophils # (Auto) 0.0 TH/MM3 CBC Comment DIFF FINAL Differential Comment Sodium Level 150 MEQ/L Potassium Level 3.5 MEQ/L Chloride Level 112 MEQ/L Carbon Dioxide Level 32.8 MEQ/L Anion Gap 5 MEQ/L Blood Urea Nitrogen 25 MG/DL Creatinine 1.43 MG/DL Estimat Glomerular Filtration 60 ML/MIN Rate Random Glucose 98 MG/DL Calcium Level 8.5 MG/DL B-Type Natriuretic Peptide 4737 PG/ML Assessment and Plan Problem List: (1) NICM (nonischemic cardiomyopathy) (2) Acute systolic heart failure (3) Acute kidney injury superimposed on CKD (4) Hypertension (5) NSTEMI (non-ST elevated myocardial infarction) Assessment and Plan 1) Biventricular heart failure, NICM EF 15-20% 2) No obstructive CAD 3) Continue Amiodarone drip for NSVT with EF decreased, will change to PO soon 4) Follow electrolytes and replace as necessary 5) Continue diuresis, change Lopressor to Coreg 6) ASA/Plavix 7) After diuresis, most likely needs JOHNATHAN-I 8) QTc not increased with Haldol 9) Encephalopathy work up per primary/neuro, check ammonia level and liver enzymes for encephalopathy Danilo Serra DO Feb 26, 2016 08:52
[2016-02-26] MEDS: MUPIROCIN 2% OINT 1 APPLIC/GM SYR EACH NARE SCH ×2 (09:00→20:47)
[2016-02-26] MEDS: DEXMEDETOMIDINE INJ 50 ML IV SCH ×4 (09:02→21:09)
[2016-02-26] MEDS: HEPARIN SODIUM - SQ 10,000 UNITS/ML VIAL SQ SCH ×2 (09:02→20:47)
[2016-02-26] MEDS: SODIUM CHLORIDE 0.9% FLUSH 5 ML FLUSH IVF SCH ×2 (09:03→20:47)
[2016-02-26] MEDS: CARVEDILOL 3.125 MG TAB PO SCH ×2 (09:03→20:46)
[2016-02-26] MEDS: ASPIRIN 81 MG CHEW TAB CHEW SCH (09:03)
[2016-02-26] MEDS: CLOPIDOGREL 75 MG TAB PO SCH (09:03)
[2016-02-26] MEDS: POTASSIUM CHLOR 20 MEQ PREMIX 100 ML IV SCH ×2 (11:47→20:47)
[2016-02-26 13:12] LABS: INDIRECT BILIRUBIN 0.5 MG/DL (0.0-0.8); TOTAL BILIRUBIN ADULT 0.7 MG/DL (0.2-1.0)
--- NOTE | 2016-02-26 19:00 | HHI.CCPN ---
Subjective Remarks/Hospital Course 02/24: 66-year-old male who was transferred from [facility] to [facility] ER on February 22, 2016 with dyspnea on exertion which had been worsening over the last 1 year, chest pains with exertion. He had an elevated troponin of 0.92. 2-D echo revealed LVEF 10-15% Patient underwent cardiac catheterization after evaluation by Dr. Serra from cardiology. Cardiac catheter revealed normal coronaries. Patient was diagnosed to have a nonischemic cardiomyopathy. He is being diuresed. I was consulted by Dr. Person this morning as patient had been off BiPAP overnight and was on 2 L nasal cannula however was in respiratory extremis breathing about 30-40 times per minute with the concern that he may need intubation. When I evaluated the patient he had just received Ativan earlier and was extremely drowsy and not arousable. He was using accessory muscles of respiration breathing in the 30s. I immediately ordered BiPAP to be initiated. He has been diuresing well with Lasix. Patient had runs of nonsustained V. tach overnight and was started on an amiodarone drip per protocol. History was obtained by reviewing records, discussion with Dr. Person, ART MODEL as well as Dr. Serra previously. 02/25: Still requiring BiPAP. He decompensates quickly on attempting to place on nasal cannula. Objective Vital Signs Date Time Temp Pulse Resp B/P Pulse Ox O2 Delivery O2 Flow Rate FiO2 02/26/16 18:00 98 Bi-Pap 25 02/26/16 18:00 51 02/26/16 16:00 97.3 10 126/70 02/26/16 15:00 2.00 Intake and Output 02/25/16 02/25/16 02/26/16 08:00 16:00 00:00 Intake Total 328 ml 216 ml 234 ml Output Total 575 ml 1050 ml 1200 ml Balance -247 ml -834 ml -966 ml Result Diagram: 02/26/16 0446 02/26/16 0446 Imaging CXR 02/24: Personally reviewed: Cardiomegaly, pulmonary basilar prominence with pulmonary edema Last Impressions Chest X-Ray 02/25/16 0000 Signed Impressions: Service Date/Time: Thursday, February 25, 2016 08:44 - CONCLUSION: Stable chest. Yunier Delgado MD FACR Head CT 02/24/16 0000 Signed Impressions: Service Date/Time: Wednesday, February 24, 2016 10:53 - CONCLUSION: Moderate motion artifact otherwise negative. Yunier Delgado MD FACR Objective Remarks HEENT/Neuro: No pallor or icterus, tongue moist, drowsy, disoriented, not following commands, on BiPAP with full facemask Neck: Raised JVD Chest/pulmonary: Good air entry bilaterally, scattered rhonchi, bilateral crackles Cardiovascular: S1-S2 regular no gallop or murmur GI/abdomen: Soft, nontender, bowel sounds present Extremities: Warm bilaterally, no edema A/P Assessment and Plan 66-year-old male with: Encephalopathy Acute respiratory failure requiring BiPAP Acute decompensated systolic heart failure Nonischemic cardiomyopathy Elevated troponin CKD stage III Hypertension Plan: Neuro: Avoid Ativan. We will use Precedex if needed to control agitation. Follow neuro status. Cardiovascular: Continue diuresis. On amiodarone drip for ventricular ectopy. Continue beta aster, aspirin, Plavix, statin. Pulmonary: Initiated on BiPAP. If respiratory status decline despite BiPAP will require endotracheal intubation. Continue diuresis for pulmonary edema GI/liver: Nothing by mouth for now. May require Dobbhoff for tube feeds and medications. Renal/: Strict intake output, monitor and replete electro lites, follow BNP creatinine. Continue diuresis. ID: No antibiotics at this time. Watch for fever/leukocytosis. Endocrine: Watch for hyperglycemia, SSI for glycemic control if needed. Heme: Follow CBC Prophylaxis: SCDs/Lovenox Condition critical. Discussed with Dr. Serra/ ART MODEL Time spent on critical care excluding procedures 30 minutes Zack Alvarez MD Feb 26, 2016 18:59
[2016-02-26] MEDS: ATORVASTATIN 80 MG TAB PO SCH (20:46)
[2016-02-27] VITALS (19 sets, daily range): BP systolic 126–142; BP diastolic 70–85; PULSE 47–71; RESP 14–23; TEMP 97–98.2; O2SAT 96–100
[2016-02-27] MEDS: SODIUM CHLORIDE 0.9% FLUSH 5 ML FLUSH IVF PRN ×2 (01:06→04:49)
[2016-02-27] MEDS: FUROSEMIDE 40 MG/4 ML VIAL IV PUSH SCH ×3 (01:06→17:55)
[2016-02-27] MEDS: DEXMEDETOMIDINE INJ 50 ML IV SCH ×8 (01:34→22:05)
[2016-02-27] MEDS: CHLORHEXIDINE GLUCONATE 2 % 1 PACK (2 CLOTHS)(taper/protocol) TOP SCH (04:00)
[2016-02-27] MEDS: HALOPERIDOL LACTATE 5 MG/ML AMP IM PRN ×2 (04:49→17:55)
--- NOTE | 2016-02-27 09:37 | PD.CARD.PN ---
Subjective Subjective Remarks Still somewhat encephalopathic, lethargic but mildly arousable Objective Medications Current Medications Medications (Trade) Dose Ordered Sig/Rogelio Route Start Time Stop Time Status Last Admin (NS 1000 ml Inj) 1,000 ml @ 100 mls/hr Q10H IV 02/22/16 21:00 Hold 02/22/16 22:41 (Tylenol) 650 mg Q4H PRN PO 02/22/16 20:15 (Zofran Inj) 4 mg Q6H PRN IVP 02/22/16 20:15 (Compazine Supp) 25 mg Q12H PRN AR 02/22/16 20:15 (Dulcolax Supp) 10 mg DAILY PRN AR 02/22/16 20:15 (Milk Of Magnesia Liq) 30 ml Q12H PRN PO 02/22/16 20:15 (Senokot) 17.2 mg Q12H PRN PO 02/22/16 20:15 (Restoril) 15 mg HS PRN PO 02/22/16 20:15 02/23/16 22:19 (Aspirin Chew) 81 mg DAILY CHEW 02/23/16 09:00 02/26/16 09:03 (Plavix) 75 mg DAILY PO 02/23/16 09:00 02/26/16 09:03 (Lipitor) 80 mg HS PO 02/23/16 21:00 02/26/16 20:46 (NS Flush) 2 ml BID IVF 02/23/16 21:00 02/26/16 09:03 (NS Flush) 2 ml UNSCH PRN IVF 02/23/16 10:30 02/27/16 04:49 Miscellaneous Information Patient in critical care unit? Ass... Q361D XX 02/23/16 16:45 02/23/16 16:45 (Chlorhexidine 2% Cloth) 3 pack DAILY@04 TOP 02/24/16 04:00 02/28/16 04:01 02/26/16 05:55 (Chlorhexidine 2% Cloth) 3 pack UNSCH PRN TOP 02/23/16 16:45 02/28/16 16:40 (Lasix Inj) 40 mg Q8H IV PUSH 02/23/16 17:00 02/27/16 01:06 (Heparin Inj) 5,000 units Q12HR SQ 02/23/16 21:00 1/9/17 20:47 (Haldol Inj) 2 mg Q6H PRN IM 02/24/16 08:45 02/27/16 04:49 (Bactroban Nasal 2% Oint) 1 applic BID EACH NARE 02/24/16 09:00 03/02/16 08:59 02/25/16 22:17 (Coreg) 3.125 mg Q12HR PO 02/24/16 21:00 02/26/16 09:03 (Narcan Inj) 0.4 mg UNSCH PRN IV 02/24/16 11:30 02/24/16 12:16 Hydralazine HCl 10 mg 10 mg Q4H PRN IV PUSH 02/24/16 21:45 02/24/16 21:50 Amiodarone HCl 450 mg/Dextrose 250 ml @ 0 mls/hr CONTINUOUS IV 02/25/16 03:00 02/26/16 17:22 (Precedex Inj) 50 ml @ 0 mls/hr TITRATE IV 02/25/16 08:45 02/27/16 04:27 Labetalol HCl 10 mg 10 mg Q2H PRN IVS 02/25/16 08:45 (KCl 20 Meq Premix Inj) 100 ml @ 50 mls/hr Q12H IV 02/26/16 10:00 02/26/16 20:47 Vital Signs / I&O Vital Signs Date Time Temp Pulse Resp B/P Pulse Ox O2 Delivery O2 Flow Rate FiO2 02/27/16 08:53 100 30 02/27/16 06:00 49 02/27/16 05:45 100 Bi-Pap 25 02/27/16 05:00 100 Nasal Cannula 4.00 02/27/16 04:00 99 Bi-Pap 25 02/27/16 04:00 97.3 51 18 134/78 99 02/27/16 04:00 51 02/27/16 03:33 100 25 02/27/16 02:00 47 02/27/16 00:59 96 25 02/27/16 00:00 97.6 49 14 137/75 100 02/27/16 00:00 49 02/27/16 00:00 100 Bi-Pap 25 02/26/16 22:45 98 25 02/26/16 22:00 50 02/26/16 20:39 100 25 02/26/16 20:00 49 02/26/16 20:00 97.1 49 10 148/79 100 02/26/16 20:00 100 Bi-Pap 25 02/26/16 18:00 98 Bi-Pap 25 02/26/16 18:00 51 02/26/16 16:00 97.3 49 10 126/70 98 02/26/16 16:00 98 Bi-Pap 25 02/26/16 16:00 49 02/26/16 15:00 99 Nasal Cannula 2.00 02/26/16 14:00 50 02/26/16 12:00 50 02/26/16 12:00 99 Bi-Pap 35 02/26/16 12:00 97.4 49 15 145/80 99 02/26/16 11:17 100 25 02/26/16 10:00 48 I/O 02/26/16 02/26/16 02/26/16 02/27/16 02/27/16 02/27/16 07:00 15:00 23:00 07:00 15:00 23:00 Intake Total 247 ml 326 ml 127 ml 444 ml Output Total 1400 ml 1100 ml 675 ml 400 ml Balance -1153 ml -774 ml -548 ml 44 ml Intake Oral 60 ml IV Total 187 ml 176 ml 127 ml 358 ml Tube Feeding 86 ml Other 150 ml Output Urine Total 1400 ml 1100 ml 675 ml 400 ml # Bowel Movements 0 0 Physical Exam GENERAL: Arousable SKIN: Warm and dry. HEAD: Atraumatic. Normocephalic. EYES: Pupils equal and round. No scleral icterus. No injection or drainage. ENT: No nasal bleeding or discharge. Mucous membranes pink and moist. NECK: Trachea midline. Mild JVD CARDIOVASCULAR: Regular rhythm. Bradycardic RESPIRATORY: Decreased breath sounds bilaterally GASTROINTESTINAL: Abdomen soft, non-tender, nondistended. Hepatic and splenic margins not palpable. MUSCULOSKELETAL: Extremities without clubbing, cyanosis, or edema. No obvious deformities. NEUROLOGICAL: No obvious cranial nerve deficits. Motor grossly within normal limits. PSYCHIATRIC: Unable to obtain Laboratory Laboratory Tests Test 02/26/16 02/27/16 12:20 05:05 Total Bilirubin 0.7 MG/DL Direct Bilirubin 0.2 MG/DL Indirect Bilirubin 0.5 MG/DL Aspartate Amino Transf 32 U/L (AST/SGOT) Alanine Aminotransferase 32 U/L (ALT/SGPT) Alkaline Phosphatase 64 U/L Ammonia 34 MCMOL/L Total Protein 6.1 GM/DL Albumin 2.0 GM/DL B-Type Natriuretic Peptide GREATER THAN 5000 PG/ML Assessment and Plan Problem List: (1) NICM (nonischemic cardiomyopathy) (2) Acute systolic heart failure (3) Acute kidney injury superimposed on CKD (4) Hypertension (5) NSTEMI (non-ST elevated myocardial infarction) Assessment and Plan 1) Biventricular heart failure, NICM EF 15-20% 2) No obstructive CAD 3) Change amiodarone drip to PO 4) Follow electrolytes and replace as necessary 5) Continue diuresis, check BMP, if too hypernatremic, may need a break from diuresis 6) ASA/Plavix 7) After diuresis, most likely needs JOHNATHAN-I 8) QTc not increased with Haldol 9) Encephalopathy work up per primary/neuro Danilo Serra DO Feb 27, 2016 09:37
[2016-02-27] MEDS: HEPARIN SODIUM - SQ 10,000 UNITS/ML VIAL SQ SCH ×2 (09:38→20:52)
[2016-02-27] MEDS: CLOPIDOGREL 75 MG TAB PO SCH (09:38)
[2016-02-27] MEDS: POTASSIUM CHLOR 20 MEQ PREMIX 100 ML IV SCH ×2 (09:38→22:05)
[2016-02-27] MEDS: ASPIRIN 81 MG CHEW TAB CHEW SCH (09:39)
[2016-02-27] MEDS: SODIUM CHLORIDE 0.9% FLUSH 5 ML FLUSH IVF SCH ×2 (09:39→20:52)
[2016-02-27] MEDS: MUPIROCIN 2% OINT 1 APPLIC/GM SYR EACH NARE SCH ×2 (09:39→20:52)
[2016-02-27] MEDS: AMIODARONE 200 MG TAB PO SCH ×2 (12:09→20:51)
--- NOTE | 2016-02-27 14:14 | HHI.CCPN ---
Subjective Remarks/Hospital Course 02/24: 66-year-old male who was transferred from [facility] to [facility] ER on February 22, 2016 with dyspnea on exertion which had been worsening over the last 1 year, chest pains with exertion. He had an elevated troponin of 0.92. 2-D echo revealed LVEF 10-15% Patient underwent cardiac catheterization after evaluation by Dr. Serra from cardiology. Cardiac catheter revealed normal coronaries. Patient was diagnosed to have a nonischemic cardiomyopathy. He is being diuresed. I was consulted by Dr. Person this morning as patient had been off BiPAP overnight and was on 2 L nasal cannula however was in respiratory extremis breathing about 30-40 times per minute with the concern that he may need intubation. When I evaluated the patient he had just received Ativan earlier and was extremely drowsy and not arousable. He was using accessory muscles of respiration breathing in the 30s. I immediately ordered BiPAP to be initiated. He has been diuresing well with Lasix. Patient had runs of nonsustained V. tach overnight and was started on an amiodarone drip per protocol. History was obtained by reviewing records, discussion with Dr. Person, STROKE PROGRAM COORDINATOR as well as Dr. Serra previously. 02/25: Still requiring BiPAP. He decompensates quickly on attempting to place on nasal cannula. 02/26: Remains encephalopathic on BiPAP with full facemask. Tolerating tube feeds via Dobbhoff. Continues to diurese Objective Vital Signs Date Time Temp Pulse Resp B/P Pulse Ox O2 Delivery O2 Flow Rate FiO2 02/27/16 12:47 100 30 02/27/16 12:00 48 02/27/16 12:00 97.4 18 133/76 02/27/16 12:00 Bi-Pap 02/27/16 05:00 4.00 Intake and Output 02/26/16 02/26/16 02/27/16 08:00 16:00 00:00 Intake Total 247 ml 326 ml 127 ml Output Total 1400 ml 1100 ml 675 ml Balance -1153 ml -774 ml -548 ml Result Diagram: 02/26/16 0446 02/26/16 0446 Imaging CXR 02/24: Personally reviewed: Cardiomegaly, pulmonary basilar prominence with pulmonary edema Last Impressions Chest X-Ray 02/25/16 0000 Signed Impressions: Service Date/Time: Thursday, February 25, 2016 08:44 - CONCLUSION: Stable chest. Yunier Delgado MD FACR Head CT 02/24/16 0000 Signed Impressions: Service Date/Time: Wednesday, February 24, 2016 10:53 - CONCLUSION: Moderate motion artifact otherwise negative. Yunier Delgado MD FACR Objective Remarks HEENT/Neuro: No pallor or icterus, tongue moist, drowsy, disoriented, not following commands, on BiPAP with full facemask Neck: Raised JVD Chest/pulmonary: Good air entry bilaterally, scattered rhonchi, bilateral crackles Cardiovascular: S1-S2 regular no gallop or murmur GI/abdomen: Soft, nontender, bowel sounds present Extremities: Warm bilaterally, no edema A/P Assessment and Plan 66-year-old male with: Encephalopathy Acute respiratory failure requiring BiPAP Acute decompensated systolic heart failure Nonischemic cardiomyopathy Elevated troponin CKD stage III Hypertension Plan: Neuro: Avoid Ativan. We will use Precedex if needed to control agitation. Follow neuro status. Cardiovascular: Continue diuresis with lasix. On amiodarone drip for ventricular ectopy. Continue beta aster, aspirin, Plavix, statin. Pulmonary: Initiated on BiPAP. If respiratory status declines despite BiPAP will require endotracheal intubation. Continue diuresis for pulmonary edema GI/liver: Dobbhoff for tube feeds and medications. Tolerating tube feeds Renal/: Strict intake output, monitor and replete electrolytes, follow BUN/ creatinine. Continue diuresis. ID: No antibiotics at this time. Watch for fever/leukocytosis. Endocrine: Watch for hyperglycemia, SSI for glycemic control if needed. Heme: Follow CBC Prophylaxis: SCDs/Lovenox Condition critical. Discussed with STROKE PROGRAM COORDINATOR Time spent on critical care excluding procedures 30 minutes Zack Alvarez MD Feb 27, 2016 14:14
[2016-02-27] MEDS: ATORVASTATIN 80 MG TAB PO SCH (20:51)
[2016-02-27] MEDS: TEMAZEPAM 15 MG CAP PO PRN (22:00)
[2016-02-28] VITALS (17 sets, daily range): BP systolic 124–143; BP diastolic 74–89; PULSE 49–72; RESP 14–24; TEMP 97.9–98.5; O2SAT 92–100
[2016-02-28] MEDS: FUROSEMIDE 40 MG/4 ML VIAL IV PUSH SCH ×2 (01:00→08:19)
[2016-02-28] MEDS: DEXMEDETOMIDINE INJ 50 ML IV SCH ×10 (01:01→20:35)
[2016-02-28] MEDS: CHLORHEXIDINE GLUCONATE 2 % 1 PACK (2 CLOTHS)(taper/protocol) TOP SCH (04:00)
[2016-02-28 05:11] LABS: AUTOMATED NEUTROPHIL # 10.3 TH/MM3 (1.8-7.7); BASOPHIL % 0.2 % (0.0-2.0); EOSINOPHIL # 0.1 TH/MM3 (0-0.4); EOSINOPHIL % 0.8 % (0.0-4.0); HEMATOCRIT 37.8 % (39.0-51.0); HEMO FLAGS DIFF FINAL; LYMPH % 8.5 % (9.0-44.0); LYMPHOCYTE # 1.1 TH/MM3 (1.0-4.8); MEAN CELL VOLUME 94.1 FL (80.0-100.0); MEAN CORPUSCULAR HEMOGLOBIN 30.3 PG (27.0-34.0); MEAN CORPUSCULAR HGB CONC 32.3 % (32.0-36.0); MONO % 8.3 % (0.0-8.0); NEUT % 82.2 % (16.0-70.0); PLATELET COUNT 168 TH/MM3 (150-450); RED BLOOD COUNT 4.01 MIL/MM3 (4.50-5.90); RED CELL DISTRIBUTION WIDTH 16.7 % (11.6-17.2); WHITE BLOOD COUNT 12.5 TH/MM3 (4.0-11.0)
[2016-02-28 05:42] LABS: ALKALINE PHOSPHATASE 68 U/L (45-117); ALT (GPT) 25 U/L (12-78); ANION GAP 8 MEQ/L (5-15); AST (GOT) 24 U/L (15-37); BICARBONATE 30.3 MEQ/L (21.0-32.0); BLOOD UREA NITROGEN 38 MG/DL (7-18); CHLORIDE 115 MEQ/L (98-107); GLOMERULAR FILTRATION RATE 52 ML/MIN (>89); SODIUM (NA) 153 MEQ/L (136-145); TOTAL BILIRUBIN ADULT 0.5 MG/DL (0.2-1.0)
[2016-02-28] MEDS: HEPARIN SODIUM - SQ 10,000 UNITS/ML VIAL SQ SCH ×2 (08:18→20:17)
[2016-02-28] MEDS: ASPIRIN 81 MG CHEW TAB CHEW SCH (08:18)
[2016-02-28] MEDS: CLOPIDOGREL 75 MG TAB PO SCH (08:18)
[2016-02-28] MEDS: AMIODARONE 200 MG TAB PO SCH ×2 (08:18→20:16)
[2016-02-28] MEDS: SODIUM CHLORIDE 0.9% FLUSH 5 ML FLUSH IVF SCH ×2 (08:19→20:17)
[2016-02-28] MEDS: MUPIROCIN 2% OINT 1 APPLIC/GM SYR EACH NARE SCH ×2 (08:19→20:16)
[2016-02-28] MEDS ORDERED: RESP: ALBUTEROL 2.5 MG/IPRATROPIUM 0.5 MG NEB (PRN) NEB (09:15)
--- NOTE | 2016-02-28 09:29 | HHI.CCPN ---
Subjective Remarks/Hospital Course 02/24: 66-year-old male who was transferred from [facility] to [facility] ER on February 22, 2016 with dyspnea on exertion which had been worsening over the last 1 year, chest pains with exertion. He had an elevated troponin of 0.92. 2-D echo revealed LVEF 10-15% Patient underwent cardiac catheterization after evaluation by Dr. Serra from cardiology. Cardiac catheter revealed normal coronaries. Patient was diagnosed to have a nonischemic cardiomyopathy. He is being diuresed. I was consulted by Dr. Person this morning as patient had been off BiPAP overnight and was on 2 L nasal cannula however was in respiratory extremis breathing about 30-40 times per minute with the concern that he may need intubation. When I evaluated the patient he had just received Ativan earlier and was extremely drowsy and not arousable. He was using accessory muscles of respiration breathing in the 30s. I immediately ordered BiPAP to be initiated. He has been diuresing well with Lasix. Patient had runs of nonsustained V. tach overnight and was started on an amiodarone drip per protocol. History was obtained by reviewing records, discussion with Dr. Person, BENZOL STILL OPERATOR as well as Dr. Serra previously. 02/25: Still requiring BiPAP. He decompensates quickly on attempting to place on nasal cannula. 02/26: Remains encephalopathic on BiPAP with full facemask. Tolerating tube feeds via Dobbhoff. Continues to diurese 02/27 Patient is on Precedex drip and BIPAP 15/5 with 30% FIO2. Afebrile. Objective Vital Signs Date Time Temp Pulse Resp B/P Pulse Ox O2 Delivery O2 Flow Rate FiO2 02/28/16 09:06 100 Nasal Cannula 2.00 02/28/16 06:00 72 02/28/16 04:28 30 02/28/16 04:00 98.0 16 124/76 Intake and Output 02/27/16 02/27/16 02/28/16 08:00 16:00 00:00 Intake Total 444 ml 457 ml 519 ml Output Total 400 ml 500 ml 650 ml Balance 44 ml -43 ml -131 ml Result Diagram: 02/28/16 0420 02/28/16 0420 Other Results Laboratory Tests Test 02/28/16 04:20 White Blood Count 12.5 TH/MM3 Red Blood Count 4.01 MIL/MM3 Hemoglobin 12.2 GM/DL Hematocrit 37.8 % Mean Corpuscular Volume 94.1 FL Mean Corpuscular Hemoglobin 30.3 PG Mean Corpuscular Hemoglobin 32.3 % Concent Red Cell Distribution Width 16.7 % Platelet Count 168 TH/MM3 Mean Platelet Volume 8.6 FL Neutrophils (%) (Auto) 82.2 % Lymphocytes (%) (Auto) 8.5 % Monocytes (%) (Auto) 8.3 % Eosinophils (%) (Auto) 0.8 % Basophils (%) (Auto) 0.2 % Neutrophils # (Auto) 10.3 TH/MM3 Lymphocytes # (Auto) 1.1 TH/MM3 Monocytes # (Auto) 1.0 TH/MM3 Eosinophils # (Auto) 0.1 TH/MM3 Basophils # (Auto) 0.0 TH/MM3 CBC Comment DIFF FINAL Differential Comment Sodium Level 153 MEQ/L Potassium Level 4.0 MEQ/L Chloride Level 115 MEQ/L Carbon Dioxide Level 30.3 MEQ/L Anion Gap 8 MEQ/L Blood Urea Nitrogen 38 MG/DL Creatinine 1.61 MG/DL Estimat Glomerular Filtration 52 ML/MIN Rate Random Glucose 105 MG/DL Calcium Level 8.4 MG/DL Total Bilirubin 0.5 MG/DL Aspartate Amino Transf 24 U/L (AST/SGOT) Alanine Aminotransferase 25 U/L (ALT/SGPT) Alkaline Phosphatase 68 U/L Total Protein 6.3 GM/DL Albumin 1.9 GM/DL Imaging Last Impressions Chest X-Ray 02/26/16 0000 Signed Impressions: Service Date/Time: Friday, February 26, 2016 01:47 - CONCLUSION: Dobbhoff tube placement with tip in stomach. Cardiomegaly with bibasilar densities and pulmonary vascular congestion. Pete Nunes MD Head CT 02/24/16 0000 Signed Impressions: Service Date/Time: Wednesday, February 24, 2016 10:53 - CONCLUSION: Moderate motion artifact otherwise negative. Yunier Delgado MD FACR Objective Remarks GENERAL: Patient is 66 yo on Precedex infusion and BIPAP SKIN: Warm and dry. HEAD: Normocephalic. EYES: No scleral icterus. No injection or drainage. NECK: Supple, trachea midline. No JVD or lymphadenopathy. CARDIOVASCULAR: Regular rate and rhythm without murmurs, gallops, or rubs. RESPIRATORY: Breath sounds equal bilaterally. No accessory muscle use. GASTROINTESTINAL: Abdomen soft, non-tender, nondistended. MUSCULOSKELETAL: No cyanosis, or edema. BACK: Nontender without obvious deformity. No CVA tenderness. A/P Assessment and Plan 66-year-old male with: Encephalopathy Acute respiratory failure requiring BiPAP Acute decompensated systolic heart failure Nonischemic cardiomyopathy Elevated troponin CKD stage III Hypertension Plan: Neuro: On Precedex drip for agitation. Wean off Precedex drip and monitor neuro status. For MRI brain per neuro- DrCandy Frances CV: On Amiodarone 200mg Q12 for ventricular ectopy. Continue aspirin, Plavix , statin. Echo showed EF 15-20%, diffuse hypokinesis Pulmonary: Wean down oxygen as deonna keep sat >92% Bronchodilators, NIPPAV PRN for resp distress Check CXR and ABG GI/liver: Dobbhoff for tube feeds and medications. Tolerating tube feeds- on Jevity 1.5@60ml/hr Renal/: Strict intake output, monitor and replete electrolytes, follow BUN/ creatinine. Decrease Lasix 40mg Q12, add Free water 250ml Q12, Gentle IV hydration D5W@50ml/hr x 5hrs, monitor sodium level. ID: Monitor for signs of infections ( Fever, WBC) check UA with cx if indicated. Endocrine: Watch for hyperglycemia, SSI for glycemic control if needed. Heme: Monitor CBC Prophylaxis: SCDs/Lovenox Adrienne Gonzáles MD Feb 28, 2016 09:29
[2016-02-28 09:33] LABS: BLOOD GAS BASE EXCESS 4.7 mmol/L (-2-2); BLOOD GAS CARBOXYHEMOGLOBIN 1.9 % (0-4); BLOOD GAS HCO3 28 mmol/L (22-26); BLOOD GAS METHEMOGLOBIN 1.1 % (0-2); BLOOD GAS O2 HGB SATURATION 95 % (90-100); BLOOD GAS OXYGEN CONTENT 17.3 Vol % (12.0-20.0); BLOOD GAS PCO2 39 mmHg (38-42); BLOOD GAS PO2 106 mmHg (61-120); BLOOD GAS TOTAL HGB 12.8 G/DL (12.0-16.0); CRITICAL VALUE NO; DRAW SITE RT RADIAL; FIO2 28 %; LITER FLOW 2 L/M; NUMBER OF ARTERIAL PUNCTURES 1; OXYGEN DEVICE NASAL CANNULA; STAT NO; TEMP CORR TO 98.6; ULNAR PULSE PRESENT
--- NOTE | 2016-02-28 09:57 | PD.CARD.PN ---
Subjective Subjective Remarks Still encephalopathic, currently on Bipap, no events over night, no NSVT noted off BB, less bradycardia Objective Medications Current Medications Medications (Trade) Dose Ordered Sig/Rogelio Route Start Time Stop Time Status Last Admin (Tylenol) 650 mg Q4H PRN PO 02/22/16 20:15 (Zofran Inj) 4 mg Q6H PRN IVP 02/22/16 20:15 (Compazine Supp) 25 mg Q12H PRN SD 02/22/16 20:15 (Dulcolax Supp) 10 mg DAILY PRN SD 02/22/16 20:15 (Milk Of Magncomfort Liq) 30 ml Q12H PRN PO 02/22/16 20:15 (Senokot) 17.2 mg Q12H PRN PO 02/22/16 20:15 (Restoril) 15 mg HS PRN PO 02/22/16 20:15 02/27/16 22:00 (Aspirin Chew) 81 mg DAILY CHEW 02/23/16 09:00 02/28/16 08:18 (Plavix) 75 mg DAILY PO 02/23/16 09:00 02/28/16 08:18 (Lipitor) 80 mg HS PO 02/23/16 21:00 02/27/16 20:51 (NS Flush) 2 ml BID IVF 02/23/16 21:00 02/28/16 08:19 (NS Flush) 2 ml UNSCH PRN IVF 02/23/16 10:30 02/27/16 04:49 Miscellaneous Information Patient in critical care unit? Ass... Q361D XX 02/23/16 16:45 02/23/16 16:45 (Chlorhexidine 2% Cloth) 3 pack UNSCH PRN TOP 02/23/16 16:45 02/28/16 16:40 (Heparin Inj) 5,000 units Q12HR SQ 02/23/16 21:00 02/28/16 08:18 (Haldol Inj) 2 mg Q6H PRN IM 02/24/16 08:45 02/27/16 17:55 (Bactroban Nasal 2% Oint) 1 applic BID EACH NARE 02/24/16 09:00 03/02/16 08:59 02/27/16 09:39 (Coreg) 3.125 mg Q12HR PO 02/24/16 21:00 Hold 02/26/16 09:03 (Narcan Inj) 0.4 mg UNSCH PRN IV 02/24/16 11:30 02/24/16 12:16 Hydralazine HCl 10 mg 10 mg Q4H PRN IV PUSH 02/24/16 21:45 02/24/16 21:50 (Precedex Inj) 50 ml @ 0 mls/hr TITRATE IV 02/25/16 08:45 02/28/16 07:13 Labetalol HCl 10 mg 10 mg Q2H PRN IVS 02/25/16 08:45 (KCl 20 Meq Premix Inj) 100 ml @ 50 mls/hr Q12H IV 02/26/16 10:00 02/27/16 22:05 Amiodarone HCl 200 mg 200 mg Q12HR PO 02/27/16 09:45 02/28/16 08:18 (D5W 1000 ml Inj) 1,000 ml @ 50 mls/hr Q20H IV 02/28/16 10:00 (Lasix Inj) 40 mg Q12H IV PUSH 02/28/16 21:00 UNV (Free Water) 250 ml Q8HR G-TUBE 02/28/16 09:15 UNV Vital Signs / I&O Vital Signs Date Time Temp Pulse Resp B/P Pulse Ox O2 Delivery O2 Flow Rate FiO2 02/28/16 09:06 100 Nasal Cannula 2.00 02/28/16 08:00 71 02/28/16 08:00 98.0 71 24 141/85 100 02/28/16 08:00 100 Bi-Pap 30 02/28/16 06:00 72 02/28/16 04:28 100 30 02/28/16 04:00 100 Bi-Pap 30 02/28/16 04:00 98.0 50 16 124/76 100 02/28/16 04:00 50 02/28/16 02:00 49 02/28/16 01:05 100 30 02/28/16 00:00 100 Bi-Pap 30 02/28/16 00:00 49 02/28/16 00:00 97.9 49 14 126/74 100 02/27/16 22:42 100 30 02/27/16 22:00 60 02/27/16 20:00 98.2 49 15 128/70 100 02/27/16 20:00 49 02/27/16 20:00 100 30 02/27/16 20:00 100 Bi-Pap 30 02/27/16 18:03 100 30 02/27/16 18:00 68 02/27/16 16:00 71 02/27/16 16:00 99 Nasal Cannula 2.00 02/27/16 16:00 97.0 71 21 126/83 99 02/27/16 15:30 98 Nasal Cannula 2.00 02/27/16 15:00 98 Nasal Cannula 2.00 02/27/16 14:00 49 02/27/16 12:47 100 30 02/27/16 12:00 48 02/27/16 12:00 97.4 49 18 133/76 99 02/27/16 12:00 98 Bi-Pap 25 02/27/16 10:00 47 I/O 02/27/16 02/27/16 02/27/16 02/28/16 02/28/16 02/28/16 07:00 15:00 23:00 07:00 15:00 23:00 Intake Total 444 ml 976 ml 850 ml Output Total 400 ml 1150 ml 375 ml Balance 44 ml -174 ml 475 ml IV Total 358 ml 278 ml 307 ml Tube Feeding 86 ml 698 ml 543 ml Output Urine Total 400 ml 1150 ml 375 ml # Bowel Movements 0 0 0 Physical Exam GENERAL: Mildly arousable SKIN: Warm and dry. HEAD: Atraumatic. Normocephalic. EYES: Pupils equal and round. No scleral icterus. No injection or drainage. ENT: No nasal bleeding or discharge. Mucous membranes pink and moist. NECK: Trachea midline. Mild JVD CARDIOVASCULAR: Regular rhythm. Bradycardic RESPIRATORY: Decreased breath sounds bilaterally GASTROINTESTINAL: Abdomen soft, non-tender, nondistended. Hepatic and splenic margins not palpable. MUSCULOSKELETAL: Extremities without clubbing, cyanosis, or edema. No obvious deformities. NEUROLOGICAL: No obvious cranial nerve deficits. Motor grossly within normal limits. PSYCHIATRIC: Unable to obtain Laboratory Laboratory Tests Test 02/28/16 02/28/16 04:20 09:20 White Blood Count 12.5 TH/MM3 Red Blood Count 4.01 MIL/MM3 Hemoglobin 12.2 GM/DL Hematocrit 37.8 % Mean Corpuscular Volume 94.1 FL Mean Corpuscular Hemoglobin 30.3 PG Mean Corpuscular Hemoglobin 32.3 % Concent Red Cell Distribution Width 16.7 % Platelet Count 168 TH/MM3 Mean Platelet Volume 8.6 FL Neutrophils (%) (Auto) 82.2 % Lymphocytes (%) (Auto) 8.5 % Monocytes (%) (Auto) 8.3 % Eosinophils (%) (Auto) 0.8 % Basophils (%) (Auto) 0.2 % Neutrophils # (Auto) 10.3 TH/MM3 Lymphocytes # (Auto) 1.1 TH/MM3 Monocytes # (Auto) 1.0 TH/MM3 Eosinophils # (Auto) 0.1 TH/MM3 Basophils # (Auto) 0.0 TH/MM3 CBC Comment DIFF FINAL Differential Comment Sodium Level 153 MEQ/L Potassium Level 4.0 MEQ/L Chloride Level 115 MEQ/L Carbon Dioxide Level 30.3 MEQ/L Anion Gap 8 MEQ/L Blood Urea Nitrogen 38 MG/DL Creatinine 1.61 MG/DL Estimat Glomerular Filtration 52 ML/MIN Rate Random Glucose 105 MG/DL Calcium Level 8.4 MG/DL Total Bilirubin 0.5 MG/DL Aspartate Amino Transf 24 U/L (AST/SGOT) Alanine Aminotransferase 25 U/L (ALT/SGPT) Alkaline Phosphatase 68 U/L Total Protein 6.3 GM/DL Albumin 1.9 GM/DL Blood Gas Puncture Site RT RADIAL Blood Gas Patient Temperature 98.6 Blood Gas HCO3 28 mmol/L Blood Gas Base Excess 4.7 mmol/L Blood Gas Oxygen Saturation 95 % Arterial Blood pH 7.47 Arterial Blood Partial 39 mmHg Pressure CO2 Arterial Blood Partial 106 mmHg Pressure O2 Arterial Blood Oxygen Content 17.3 Vol % Arterial Blood 1.9 % Carboxyhemoglobin Arterial Blood Methemoglobin 1.1 % Blood Gas Hemoglobin 12.8 G/DL Oxygen Delivery Device NASAL CANNULA Blood Gas Liter Flow 2 L/M Blood Gas Inspired Oxygen 28 % Assessment and Plan Problem List: (1) NICM (nonischemic cardiomyopathy) (2) Acute systolic heart failure (3) Acute kidney injury superimposed on CKD (4) Hypertension (5) NSTEMI (non-ST elevated myocardial infarction) Assessment and Plan 1) Biventricular heart failure, NICM EF 15-20% 2) No obstructive CAD 3) Change amiodarone drip to PO 4) Follow electrolytes and replace as necessary, free water flushes 5) Continue diuresis 6) ASA/Plavix 7) After diuresis, most likely needs JOHNATHAN-I 8) QTc not increased with Haldol 9) Encephalopathy work up per primary/neuro Danilo Serra DO Feb 28, 2016 09:57
[2016-02-28] MEDS ORDERED: DEXTROSE 5% IN WATE 1000ML INJ 1,000 ML IV SCH (10:00)
[2016-02-28] MEDS: POTASSIUM CHLOR 20 MEQ PREMIX 100 ML IV SCH ×2 (10:22→20:18)
[2016-02-28] MEDS: FREE WATER G-TUBE SCH ×3 (10:52→20:17)
--- NOTE | 2016-02-28 11:09 | RADRPT ---
EXAM DATE/TIME: 02/28/2016 10:18 [place] COMPARISON: CHEST SINGLE AP, February 26, 2016, 1:47. INDICATIONS: Short of breath. MEDICAL HISTORY: Cardiovascular disease. Hypertension. MRSA SURGICAL HISTORY: None. ENCOUNTER: Initial ACUITY: 4 - 6 days PAIN SCORE: Non-responsive. LOCATION: Bilateral chest FINDINGS: The heart is enlarged. Moderate pulmonary vascular congestion is noted bilaterally. A feeding tube is noted below the diaphragm. CONCLUSION: 1. Cardiomegaly. 2. Moderate pulmonary vascular congestion bilaterally. Sadiq Forbes MD on February 28, 2016 at 10:53 Board Certified Radiologist. This report was verified electronically.
[2016-02-28 11:13] LABS: BLOOD, URINE NEG (NEG); COMMENT (UR) CATH-CULT NOT IND; CULTURE IF INDICATED CATH CULTURE NOT IND; GLUCOSE,URINE NEG (NEG); HYALINE CAST, URINE 7 /lpf (RARE); KETONE, URINE NEG (NEG); MUCUS URINE FEW /lpf (OCC); NITRITE,URINE NEG (NEG); PH, URINE 5.5 (5.0-8.5); SQUAMOUS EPITHELIAL CELL URINE <1 /hpf (0-5); URINE COLOR YELLOW (YELLW/STRAW)
[2016-02-28] MEDS: RESP: ALBUTEROL 2.5 MG/IPRATROPIUM 0.5 MG NEB (SCH) NEB ×3 (17:02→23:52)
[2016-02-28] MEDS: HALOPERIDOL LACTATE 5 MG/ML AMP IM PRN (17:53)
[2016-02-28] MEDS: ATORVASTATIN 80 MG TAB PO SCH (20:16)
[2016-02-28] MEDS: TEMAZEPAM 15 MG CAP PO PRN (20:16)
[2016-02-28] MEDS ORDERED: FUROSEMIDE 40 MG/4 ML VIAL IV PUSH SCH (21:00)
[2016-02-28] MEDS: DEXMEDETOMIDINE INJ 1,000 MCG in SODIUM CHLOR 0.9% 250 ML INJ 240 ML IV SCH (23:39)
[2016-02-29] VITALS (15 sets, daily range): BP systolic 142–164; BP diastolic 77–83; PULSE 52–64; RESP 11–22; TEMP 98.1–98.5; O2SAT 97–100
[2016-02-29] MEDS: HALOPERIDOL LACTATE 5 MG/ML AMP IM PRN ×2 (03:28→08:50)
[2016-02-29] MEDS: RESP: ALBUTEROL 2.5 MG/IPRATROPIUM 0.5 MG NEB (SCH) NEB ×6 (03:39→23:57)
[2016-02-29] MEDS: FREE WATER G-TUBE SCH ×4 (06:00→22:57)
[2016-02-29 06:09] LABS: BICARBONATE 30.7 MEQ/L (21.0-32.0); POTASSIUM 3.9 MEQ/L (3.5-5.1)
[2016-02-29 06:14] LABS: AUTOMATED NEUTROPHIL # 8.7 TH/MM3 (1.8-7.7); BASOPHIL % 0.4 % (0.0-2.0); EOSINOPHIL # 0.2 TH/MM3 (0-0.4); EOSINOPHIL % 1.9 % (0.0-4.0); HEMATOCRIT 37.2 % (39.0-51.0); HEMO FLAGS DIFF FINAL; LYMPHOCYTE # 1.1 TH/MM3 (1.0-4.8); MEAN CELL VOLUME 95.2 FL (80.0-100.0); MEAN CORPUSCULAR HEMOGLOBIN 30.5 PG (27.0-34.0); MEAN CORPUSCULAR HGB CONC 32.1 % (32.0-36.0); MONO % 6.3 % (0.0-8.0); NEUT % 81.4 % (16.0-70.0); PLATELET COUNT 153 TH/MM3 (150-450); RED BLOOD COUNT 3.91 MIL/MM3 (4.50-5.90); WHITE BLOOD COUNT 10.7 TH/MM3 (4.0-11.0)
--- NOTE | 2016-02-29 08:31 | HHI.CCPN ---
Subjective Remarks/Hospital Course 02/24: 66-year-old male who was transferred from [facility] to [facility] ER on February 22, 2016 with dyspnea on exertion which had been worsening over the last 1 year, chest pains with exertion. He had an elevated troponin of 0.92. 2-D echo revealed LVEF 10-15% Patient underwent cardiac catheterization after evaluation by Dr. Serra from cardiology. Cardiac catheter revealed normal coronaries. Patient was diagnosed to have a nonischemic cardiomyopathy. He is being diuresed. I was consulted by Dr. Person this morning as patient had been off BiPAP overnight and was on 2 L nasal cannula however was in respiratory extremis breathing about 30-40 times per minute with the concern that he may need intubation. When I evaluated the patient he had just received Ativan earlier and was extremely drowsy and not arousable. He was using accessory muscles of respiration breathing in the 30s. I immediately ordered BiPAP to be initiated. He has been diuresing well with Lasix. Patient had runs of nonsustained V. tach overnight and was started on an amiodarone drip per protocol. History was obtained by reviewing records, discussion with Dr. Person, CREDIT OPERATIONS SPECIALIST as well as Dr. Serra previously. 02/25: Still requiring BiPAP. He decompensates quickly on attempting to place on nasal cannula. 02/26: Remains encephalopathic on BiPAP with full facemask. Tolerating tube feeds via Dobbhoff. Continues to diurese 02/27 Patient is on Precedex drip and BIPAP 15/5 with 30% FIO2. Afebrile. 02/28 No acute events overnight. On Precedex drip for agitioan and BIPAP 15/5 with 30%FIO2. Tolerating tube feeds. Objective Vital Signs Date Time Temp Pulse Resp B/P Pulse Ox O2 Delivery O2 Flow Rate FiO2 02/29/16 06:00 52 02/29/16 04:00 98 Bi-Pap 30 02/29/16 04:00 98.1 11 142/79 02/28/16 20:02 4.00 Intake and Output 02/28/16 02/28/16 02/29/16 08:00 16:00 00:00 Intake Total 850 ml 1466 ml 1100 ml Output Total 375 ml 1075 ml 850 ml Balance 475 ml 391 ml 250 ml Result Diagram: 02/29/16 0515 02/29/16 0515 Other Results Laboratory Tests Test 02/28/16 02/28/16 02/29/16 09:20 10:10 05:15 Blood Gas Puncture Site RT RADIAL Blood Gas Patient Temperature 98.6 Blood Gas HCO3 28 mmol/L Blood Gas Base Excess 4.7 mmol/L Blood Gas Oxygen Saturation 95 % Arterial Blood pH 7.47 Arterial Blood Partial 39 mmHg Pressure CO2 Arterial Blood Partial 106 mmHg Pressure O2 Arterial Blood Oxygen Content 17.3 Vol % Arterial Blood 1.9 % Carboxyhemoglobin Arterial Blood Methemoglobin 1.1 % Blood Gas Hemoglobin 12.8 G/DL Oxygen Delivery Device NASAL CANNULA Blood Gas Liter Flow 2 L/M Blood Gas Inspired Oxygen 28 % Urine Color YELLOW Urine Turbidity CLEAR Urine pH 5.5 Urine Specific Byron 1.010 Urine Protein NEG mg/dL Urine Glucose (UA) NEG mg/dL Urine Ketones NEG mg/dL Urine Occult Blood NEG Urine Nitrite NEG Urine Bilirubin NEG Urine Urobilinogen LESS THAN 2.0 MG/DL Urine Leukocyte Esterase TRACE Urine RBC 1 /hpf Urine WBC 3 /hpf Urine Squamous Epithelial <1 /hpf Cells Urine Hyaline Casts 7 /lpf Urine Mucus FEW /lpf Microscopic Urinalysis Comment CATH-CULT NOT IND White Blood Count 10.7 TH/MM3 Red Blood Count 3.91 MIL/MM3 Hemoglobin 11.9 GM/DL Hematocrit 37.2 % Mean Corpuscular Volume 95.2 FL Mean Corpuscular Hemoglobin 30.5 PG Mean Corpuscular Hemoglobin 32.1 % Concent Red Cell Distribution Width 17.0 % Platelet Count 153 TH/MM3 Mean Platelet Volume 9.0 FL Neutrophils (%) (Auto) 81.4 % Lymphocytes (%) (Auto) 10.0 % Monocytes (%) (Auto) 6.3 % Eosinophils (%) (Auto) 1.9 % Basophils (%) (Auto) 0.4 % Neutrophils # (Auto) 8.7 TH/MM3 Lymphocytes # (Auto) 1.1 TH/MM3 Monocytes # (Auto) 0.7 TH/MM3 Eosinophils # (Auto) 0.2 TH/MM3 Basophils # (Auto) 0.0 TH/MM3 CBC Comment DIFF FINAL Differential Comment Sodium Level 152 MEQ/L Potassium Level 3.9 MEQ/L Chloride Level 115 MEQ/L Carbon Dioxide Level 30.7 MEQ/L Anion Gap 6 MEQ/L Blood Urea Nitrogen 39 MG/DL Creatinine 1.61 MG/DL Estimat Glomerular Filtration 52 ML/MIN Rate Random Glucose 158 MG/DL Calcium Level 8.5 MG/DL Imaging Last Impressions Chest X-Ray 02/28/16 0000 Signed Impressions: Service Date/Time: Sunday, February 28, 2016 10:18 - CONCLUSION: 1. Cardiomegaly. 2. Moderate pulmonary vascular congestion bilaterally. Sadiq Forbes MD Head CT 02/24/16 0000 Signed Impressions: Service Date/Time: Wednesday, February 24, 2016 10:53 - CONCLUSION: Moderate motion artifact otherwise negative. Yunier Delgado MD FACR Objective Remarks GENERAL: Patient is 66 yo on Precedex infusion and BIPAP SKIN: Warm and dry. HEAD: Normocephalic. EYES: No scleral icterus. No injection or drainage. NECK: Supple, trachea midline. No JVD or lymphadenopathy. CARDIOVASCULAR: Regular rate and rhythm without murmurs, gallops, or rubs. RESPIRATORY: Breath sounds equal bilaterally. No accessory muscle use. GASTROINTESTINAL: Abdomen soft, non-tender, nondistended. MUSCULOSKELETAL: No cyanosis, or edema. BACK: Nontender without obvious deformity. No CVA tenderness. A/P Assessment and Plan 66-year-old male with: Encephalopathy Acute respiratory failure requiring BiPAP Acute decompensated systolic heart failure Nonischemic cardiomyopathy Elevated troponin CKD stage III Hypertension Plan: Neuro: On Precedex drip for agitation. Wean off Precedex drip and monitor neuro status. For MRI brain per neuro- Dr. Frances CV: On Amiodarone 200mg Q12 for ventricular ectopy. Continue aspirin, Plavix , statin. Echo showed EF 15-20%, diffuse hypokinesis Pulmonary: Wean down oxygen as deonna keep sat >92% Bronchodilators, NIPPAV PRN for resp distress GI/liver: Dobbhoff for tube feeds and medications. Tolerating tube feeds- on Jevity 1.5@60ml/hr Renal/: Strict intake output, monitor and replete electrolytes, follow BUN/ creatinine. Change Lasix 20mg Q12, change Free water 250ml Q6, monitor sodium level. ID: Monitor for signs of infections ( Fever, WBC) Endocrine: SSI for glycemic control if needed. Heme: Monitor CBC Prophylaxis: SCDs/Lovenox Level 3 Adrienne Gonzáles MD Feb 29, 2016 08:31
[2016-02-29] MEDS: POTASSIUM CHLOR 20 MEQ PREMIX 100 ML IV SCH ×2 (08:49→22:56)
[2016-02-29] MEDS: FUROSEMIDE 40 MG/4 ML VIAL IV PUSH SCH ×2 (08:50→19:57)
[2016-02-29] MEDS: HEPARIN SODIUM - SQ 10,000 UNITS/ML VIAL SQ SCH ×2 (08:50→22:56)
[2016-02-29] MEDS: ASPIRIN 81 MG CHEW TAB CHEW SCH (08:51)
[2016-02-29] MEDS: CLOPIDOGREL 75 MG TAB PO SCH (08:51)
[2016-02-29] MEDS: MUPIROCIN 2% OINT 1 APPLIC/GM SYR EACH NARE SCH ×2 (08:51→19:58)
[2016-02-29] MEDS: AMIODARONE 200 MG TAB PO SCH ×2 (08:51→19:58)
[2016-02-29] MEDS: SODIUM CHLORIDE 0.9% FLUSH 5 ML FLUSH IVF SCH ×2 (08:51→19:58)
--- NOTE | 2016-02-29 11:40 | PD.CARD.PN ---
Subjective Subjective Remarks Still lethargic, but not encephalopathic as before Objective Medications Current Medications Medications (Trade) Dose Ordered Sig/Rogelio Route Start Time Stop Time Status Last Admin (Tylenol) 650 mg Q4H PRN PO 02/22/16 20:15 (Zofran Inj) 4 mg Q6H PRN IVP 02/22/16 20:15 (Compazine Supp) 25 mg Q12H PRN NV 02/22/16 20:15 (Dulcolax Supp) 10 mg DAILY PRN NV 02/22/16 20:15 02/29/16 06:31 (Milk Of Magnesia Liq) 30 ml Q12H PRN PO 02/22/16 20:15 (Senokot) 17.2 mg Q12H PRN PO 02/22/16 20:15 02/28/16 17:53 (Restoril) 15 mg HS PRN PO 02/22/16 20:15 02/28/16 20:16 (Aspirin Chew) 81 mg DAILY CHEW 02/23/16 09:00 02/29/16 08:51 (Plavix) 75 mg DAILY PO 02/23/16 09:00 02/29/16 08:51 (Lipitor) 80 mg HS PO 02/23/16 21:00 02/28/16 20:16 (NS Flush) 2 ml BID IVF 02/23/16 21:00 02/29/16 08:51 (NS Flush) 2 ml UNSCH PRN IVF 02/23/16 10:30 02/27/16 04:49 Miscellaneous Information Patient in critical care unit? Ass... Q361D XX 02/23/16 16:45 02/23/16 16:45 (Heparin Inj) 5,000 units Q12HR SQ 02/23/16 21:00 02/29/16 08:50 (Haldol Inj) 2 mg Q6H PRN IM 02/24/16 08:45 02/29/16 08:50 (Bactroban Nasal 2% Oint) 1 applic BID EACH NARE 02/24/16 09:00 03/02/16 08:59 02/29/16 08:51 (Coreg) 3.125 mg Q12HR PO 02/24/16 21:00 Hold 02/26/16 09:03 (Narcan Inj) 0.4 mg UNSCH PRN IV 1/7/17 11:30 02/24/16 12:16 (Apresoline Inj) 10 mg Q4H PRN IV PUSH 02/24/16 21:45 02/24/16 21:50 Labetalol HCl 10 mg 10 mg Q2H PRN IVS 02/25/16 08:45 (KCl 20 Meq Premix Inj) 100 ml @ 50 mls/hr Q12H IV 02/26/16 10:00 02/29/16 08:49 Amiodarone HCl 200 mg 200 mg Q12HR PO 02/27/16 09:45 02/29/16 08:51 (Precedex Inj/NS 250 ml Inj) 250 ml @ 0 mls/hr TITRATE IV 02/28/16 22:30 02/28/16 23:39 (Free Water) VOLUME OF WATER: ( 250 ) ML Q6HR G-TUBE 02/29/16 12:00 (Lasix Inj) 20 mg Q12H IV PUSH 02/29/16 09:00 02/29/16 08:50 Vital Signs / I&O Vital Signs Date Time Temp Pulse Resp B/P Pulse Ox O2 Delivery O2 Flow Rate FiO2 02/29/16 10:00 54 02/29/16 08:43 99 Nasal Cannula 4.00 02/29/16 08:43 97 02/29/16 08:00 55 02/29/16 08:00 97 Bi-Pap 30 02/29/16 06:00 52 02/29/16 04:00 98 Bi-Pap 30 02/29/16 04:00 98.1 54 11 142/79 98 02/29/16 04:00 54 02/29/16 03:39 100 30 02/29/16 02:00 54 02/29/16 00:00 100 Bi-Pap 30 02/29/16 00:00 54 02/29/16 00:00 98.2 54 19 147/79 100 02/28/16 23:52 100 30 02/28/16 22:00 65 02/28/16 20:02 92 Nasal Cannula 4.00 02/28/16 20:00 95 Nasal Cannula 2.00 02/28/16 20:00 55 02/28/16 20:00 98.4 55 18 133/76 95 02/28/16 18:00 59 02/28/16 16:00 98.5 58 22 141/80 96 02/28/16 16:00 58 02/28/16 16:00 96 Nasal Cannula 2.00 02/28/16 14:00 60 02/28/16 12:00 72 02/28/16 12:00 100 Nasal Cannula 2.00 02/28/16 12:00 98.5 72 19 143/89 100 I/O 02/28/16 02/28/16 02/28/16 02/29/16 02/29/16 02/29/16 07:00 15:00 23:00 07:00 15:00 23:00 Intake Total 850 ml 1466 ml 1100 ml 1470 ml Output Total 375 ml 1075 ml 850 ml 850 ml Balance 475 ml 391 ml 250 ml 620 ml IV Total 307 ml 375 ml 300 ml 709 ml Tube Feeding 543 ml 591 ml 500 ml 511 ml Tube Irrigant 500 ml Other 300 ml 250 ml Output Urine Total 375 ml 1075 ml 850 ml 850 ml # Bowel Movements 0 0 0 Physical Exam GENERAL: Awake, somewhat alert SKIN: Warm and dry. HEAD: Atraumatic. Normocephalic. EYES: Pupils equal and round. No scleral icterus. No injection or drainage. ENT: No nasal bleeding or discharge. Mucous membranes pink and moist. NECK: Trachea midline. Mild JVD CARDIOVASCULAR: Regular rhythm. Bradycardic RESPIRATORY: Decreased breath sounds bilaterally GASTROINTESTINAL: Abdomen soft, non-tender, nondistended. Hepatic and splenic margins not palpable. MUSCULOSKELETAL: Extremities without clubbing, cyanosis, or edema. No obvious deformities. NEUROLOGICAL: No obvious cranial nerve deficits. Motor grossly within normal limits. PSYCHIATRIC: Unable to obtain Laboratory Laboratory Tests Test 02/29/16 05:15 White Blood Count 10.7 TH/MM3 Red Blood Count 3.91 MIL/MM3 Hemoglobin 11.9 GM/DL Hematocrit 37.2 % Mean Corpuscular Volume 95.2 FL Mean Corpuscular Hemoglobin 30.5 PG Mean Corpuscular Hemoglobin 32.1 % Concent Red Cell Distribution Width 17.0 % Platelet Count 153 TH/MM3 Mean Platelet Volume 9.0 FL Neutrophils (%) (Auto) 81.4 % Lymphocytes (%) (Auto) 10.0 % Monocytes (%) (Auto) 6.3 % Eosinophils (%) (Auto) 1.9 % Basophils (%) (Auto) 0.4 % Neutrophils # (Auto) 8.7 TH/MM3 Lymphocytes # (Auto) 1.1 TH/MM3 Monocytes # (Auto) 0.7 TH/MM3 Eosinophils # (Auto) 0.2 TH/MM3 Basophils # (Auto) 0.0 TH/MM3 CBC Comment DIFF FINAL Differential Comment Sodium Level 152 MEQ/L Potassium Level 3.9 MEQ/L Chloride Level 115 MEQ/L Carbon Dioxide Level 30.7 MEQ/L Anion Gap 6 MEQ/L Blood Urea Nitrogen 39 MG/DL Creatinine 1.61 MG/DL Estimat Glomerular Filtration 52 ML/MIN Rate Random Glucose 158 MG/DL Calcium Level 8.5 MG/DL Assessment and Plan Problem List: (1) NICM (nonischemic cardiomyopathy) (2) Acute systolic heart failure (3) Acute kidney injury superimposed on CKD (4) Hypertension (5) NSTEMI (non-ST elevated myocardial infarction) Assessment and Plan 1) Biventricular heart failure, NICM EF 15-20% 2) No obstructive CAD 3) Amiodarone PO, no further NSVT... may need Lifevest on discharge vs continue amiodarone 4) Follow electrolytes and replace as necessary, free water flushes 5) Continue diuresis 6) ASA/Plavix 7) After diuresis, most likely needs JOHNATHAN-I Danilo Serra DO Feb 29, 2016 11:40
--- NOTE | 2016-02-29 15:27 | RADRPT ---
EXAM DATE/TIME: 02/29/2016 14:56 [place] COMPARISON: CHEST SINGLE AP, February 28, 2016, 10:18. INDICATIONS : Dubhoff placement. MEDICAL HISTORY : Cardiovascular disease. Hypertension. SURGICAL HISTORY : None. ENCOUNTER: Initial ACUITY: 1 week PAIN SCORE: Non-responsive. LOCATION: Bilateral chest FINDINGS: Single view of the abdomen demonstrates air and stool seen throughout the large bowel. No evidence of bowel obstruction. There is no visualized Dobbhoff tube present on the film. Osseous structures demonstrate curvature of the lumbar spine are otherwise unremarkable. CONCLUSION: No visualized Dobbhoff tube. Taryn Lindquist MD on February 29, 2016 at 15:23 Board Certified Radiologist. This report was verified electronically.
[2016-02-29] MEDS: ATORVASTATIN 80 MG TAB PO SCH (19:58)
[2016-03-01] VITALS (15 sets, daily range): BP systolic 136–154; BP diastolic 74–84; PULSE 53–72; RESP 12–21; TEMP 97.7–98.9; O2SAT 94–100
[2016-03-01] MEDS: DEXMEDETOMIDINE INJ 1,000 MCG in SODIUM CHLOR 0.9% 250 ML INJ 240 ML IV SCH (00:07)
[2016-03-01] MEDS: TEMAZEPAM 15 MG CAP PO PRN (01:30)
[2016-03-01] MEDS: RESP: ALBUTEROL 2.5 MG/IPRATROPIUM 0.5 MG NEB (SCH) NEB ×6 (03:24→23:27)
[2016-03-01] MEDS: FREE WATER G-TUBE SCH ×4 (06:00→21:47)
[2016-03-01 06:18] LABS: AUTOMATED NEUTROPHIL # 7.6 TH/MM3 (1.8-7.7); BASOPHIL % 0.4 % (0.0-2.0); EOSINOPHIL # 0.4 TH/MM3 (0-0.4); EOSINOPHIL % 3.9 % (0.0-4.0); HEMATOCRIT 35.2 % (39.0-51.0); HEMO FLAGS DIFF FINAL; LYMPH % 9.5 % (9.0-44.0); LYMPHOCYTE # 0.9 TH/MM3 (1.0-4.8); MEAN CELL VOLUME 94.1 FL (80.0-100.0); MEAN CORPUSCULAR HGB CONC 32.9 % (32.0-36.0); MONO % 6.9 % (0.0-8.0); NEUT % 79.3 % (16.0-70.0); PLATELET COUNT 143 TH/MM3 (150-450); RED BLOOD COUNT 3.74 MIL/MM3 (4.50-5.90); RED CELL DISTRIBUTION WIDTH 16.5 % (11.6-17.2); WHITE BLOOD COUNT 9.6 TH/MM3 (4.0-11.0)
[2016-03-01 06:36] LABS: BICARBONATE 36.3 MEQ/L (21.0-32.0); POTASSIUM 3.6 MEQ/L (3.5-5.1)
--- NOTE | 2016-03-01 08:44 | PD.CARD.PN ---
Subjective Subjective Remarks More awake and responsive, no chest pain, no shortness of breath Objective Medications Current Medications Medications (Trade) Dose Ordered Sig/Rogelio Route Start Time Stop Time Status Last Admin (Tylenol) 650 mg Q4H PRN PO 02/22/16 20:15 (Zofran Inj) 4 mg Q6H PRN IVP 02/22/16 20:15 (Compazine Supp) 25 mg Q12H PRN MN 02/22/16 20:15 (Dulcolax Supp) 10 mg DAILY PRN MN 02/22/16 20:15 02/29/16 06:31 (Milk Of Magncomfort Liq) 30 ml Q12H PRN PO 02/22/16 20:15 (Senokot) 17.2 mg Q12H PRN PO 02/22/16 20:15 02/28/16 17:53 (Restoril) 15 mg HS PRN PO 02/22/16 20:15 03/01/16 01:30 (Aspirin Chew) 81 mg DAILY CHEW 02/23/16 09:00 02/29/16 08:51 (Plavix) 75 mg DAILY PO 02/23/16 09:00 02/29/16 08:51 (Lipitor) 80 mg HS PO 02/23/16 21:00 02/29/16 19:58 (NS Flush) 2 ml BID IVF 02/23/16 21:00 02/29/16 19:58 (NS Flush) 2 ml UNSCH PRN IVF 02/23/16 10:30 02/27/16 04:49 Miscellaneous Information Patient in critical care unit? Ass... Q361D XX 02/23/16 16:45 02/23/16 16:45 (Heparin Inj) 5,000 units Q12HR SQ 02/23/16 21:00 02/29/16 22:56 (Haldol Inj) 2 mg Q6H PRN IM 02/24/16 08:45 02/29/16 08:50 (Bactroban Nasal 2% Oint) 1 applic BID EACH NARE 02/24/16 09:00 03/02/16 08:59 02/29/16 19:58 (Coreg) 3.125 mg Q12HR PO 02/24/16 21:00 Hold 02/26/16 09:03 (Narcan Inj) 0.4 mg UNSCH PRN IV 02/24/16 11:30 02/24/16 12:16 (Apresoline Inj) 10 mg Q4H PRN IV PUSH 02/24/16 21:45 02/24/16 21:50 Labetalol HCl 10 mg 10 mg Q2H PRN IVS 02/25/16 08:45 (KCl 20 Meq Premix Inj) 100 ml @ 50 mls/hr Q12H IV 02/26/16 10:00 02/29/16 22:56 Amiodarone HCl 200 mg 200 mg Q12HR PO 02/27/16 09:45 02/29/16 19:58 (Precedex Inj/NS 250 ml Inj) 250 ml @ 0 mls/hr TITRATE IV 02/28/16 22:30 03/01/16 00:07 (Free Water) VOLUME OF WATER: ( 250 ) ML Q6HR G-TUBE 02/29/16 12:00 02/29/16 22:57 (Lasix Inj) 20 mg Q12H IV PUSH 02/29/16 09:00 02/29/16 19:57 Vital Signs / I&O Vital Signs Date Time Temp Pulse Resp B/P Pulse Ox O2 Delivery O2 Flow Rate FiO2 03/01/16 08:22 94 Nasal Cannula 3.00 03/01/16 06:00 56 03/01/16 04:00 98.4 72 12 136/84 100 03/01/16 04:00 72 03/01/16 04:00 100 Nasal Cannula 03/01/16 02:00 64 03/01/16 00:00 98.9 61 21 154/78 99 03/01/16 00:00 61 03/01/16 00:00 99 Nasal Cannula 02/29/16 22:00 59 02/29/16 21:01 100 Nasal Cannula 3.00 02/29/16 20:00 98.5 59 22 152/80 100 02/29/16 20:00 100 Nasal Cannula 02/29/16 20:00 59 02/29/16 18:00 61 02/29/16 16:00 99 Nasal Cannula 02/29/16 16:00 98.3 57 16 147/80 100 02/29/16 16:00 58 02/29/16 14:00 60 02/29/16 12:00 55 02/29/16 12:00 99 Nasal Cannula 02/29/16 12:00 98.5 64 17 164/83 99 02/29/16 10:00 54 02/29/16 08:43 99 Nasal Cannula 4.00 02/29/16 08:43 97 I/O 02/29/16 02/29/16 02/29/16 03/01/16 03/01/16 03/01/16 07:00 15:00 23:00 07:00 15:00 23:00 Intake Total 1470 ml 2140 ml 724 ml 1021 ml Output Total 850 ml 1400 ml 450 ml 400 ml Balance 620 ml 740 ml 274 ml 621 ml IV Total 709 ml 471 ml 247 ml 378 ml Tube Feeding 511 ml 1669 ml 477 ml 393 ml Other 250 ml 250 ml Output Urine Total 850 ml 1400 ml 450 ml 400 ml # Bowel Movements 0 1 0 1 Physical Exam GENERAL: Awake and alert SKIN: Warm and dry. HEAD: Atraumatic. Normocephalic. EYES: Pupils equal and round. No scleral icterus. No injection or drainage. ENT: No nasal bleeding or discharge. Mucous membranes pink and moist. NECK: Trachea midline. Mild JVD CARDIOVASCULAR: Regular rhythm. RESPIRATORY: Decreased breath sounds bilaterally GASTROINTESTINAL: Abdomen soft, non-tender, nondistended. Hepatic and splenic margins not palpable. MUSCULOSKELETAL: Anasarca NEUROLOGICAL: No obvious cranial nerve deficits. Motor grossly within normal limits. PSYCHIATRIC: Unable to obtain Laboratory Laboratory Tests Test 03/01/16 04:50 White Blood Count 9.6 TH/MM3 Red Blood Count 3.74 MIL/MM3 Hemoglobin 11.6 GM/DL Hematocrit 35.2 % Mean Corpuscular Volume 94.1 FL Mean Corpuscular Hemoglobin 31.0 PG Mean Corpuscular Hemoglobin 32.9 % Concent Red Cell Distribution Width 16.5 % Platelet Count 143 TH/MM3 Mean Platelet Volume 9.0 FL Neutrophils (%) (Auto) 79.3 % Lymphocytes (%) (Auto) 9.5 % Monocytes (%) (Auto) 6.9 % Eosinophils (%) (Auto) 3.9 % Basophils (%) (Auto) 0.4 % Neutrophils # (Auto) 7.6 TH/MM3 Lymphocytes # (Auto) 0.9 TH/MM3 Monocytes # (Auto) 0.7 TH/MM3 Eosinophils # (Auto) 0.4 TH/MM3 Basophils # (Auto) 0.0 TH/MM3 CBC Comment DIFF FINAL Differential Comment Sodium Level 151 MEQ/L Potassium Level 3.6 MEQ/L Chloride Level 111 MEQ/L Carbon Dioxide Level 36.3 MEQ/L Anion Gap 4 MEQ/L Blood Urea Nitrogen 30 MG/DL Creatinine 1.36 MG/DL Estimat Glomerular Filtration 63 ML/MIN Rate Random Glucose 96 MG/DL Calcium Level 8.1 MG/DL Assessment and Plan Problem List: (1) NICM (nonischemic cardiomyopathy) (2) Acute systolic heart failure (3) Acute kidney injury superimposed on CKD (4) Hypertension (5) NSTEMI (non-ST elevated myocardial infarction) (6) Hypoalbuminemia Assessment and Plan 1) Biventricular heart failure, NICM EF 15-20% 2) No obstructive CAD 3) Amiodarone PO, no further NSVT... may need Lifevest on discharge vs continue amiodarone... will decrease dose through hospital course 4) Follow electrolytes and replace as necessary, free water flushes 5) Continue diuresis 6) ASA/Plavix 7) After diuresis, most likely needs JOHNATHAN-I 8) Hypoalbuminemia leading to anasarca, continue tube feeds per critical care Danilo Serra DO Mar 01, 2016 08:44
--- NOTE | 2016-03-01 08:48 | HHI.CCPN ---
Subjective Remarks/Hospital Course 02/24: 66-year-old male who was transferred from [facility] to [facility] ER on February 22, 2016 with dyspnea on exertion which had been worsening over the last 1 year, chest pains with exertion. He had an elevated troponin of 0.92. 2-D echo revealed LVEF 10-15% Patient underwent cardiac catheterization after evaluation by Dr. Serra from cardiology. Cardiac catheter revealed normal coronaries. Patient was diagnosed to have a nonischemic cardiomyopathy. He is being diuresed. I was consulted by Dr. Person this morning as patient had been off BiPAP overnight and was on 2 L nasal cannula however was in respiratory extremis breathing about 30-40 times per minute with the concern that he may need intubation. When I evaluated the patient he had just received Ativan earlier and was extremely drowsy and not arousable. He was using accessory muscles of respiration breathing in the 30s. I immediately ordered BiPAP to be initiated. He has been diuresing well with Lasix. Patient had runs of nonsustained V. tach overnight and was started on an amiodarone drip per protocol. History was obtained by reviewing records, discussion with Dr. Person, [employer]PERVIS[employer] as well as Dr. Serra previously. 02/25: Still requiring BiPAP. He decompensates quickly on attempting to place on nasal cannula. 02/26: Remains encephalopathic on BiPAP with full facemask. Tolerating tube feeds via Dobbhoff. Continues to diurese 02/27 Patient is on Precedex drip and BIPAP 15/5 with 30% FIO2. Afebrile. 02/28 No acute events overnight. On Precedex drip for agitation and BIPAP 15/5 with 30%FIO2. Tolerating tube feeds. 03/01 Patient is off BIPAP remains on Precedex drip. Afebrile. On 3L oxygen. Dobbhoff tube clogged last night. Objective Vital Signs Date Time Temp Pulse Resp B/P Pulse Ox O2 Delivery O2 Flow Rate FiO2 03/01/16 08:22 94 Nasal Cannula 3.00 03/01/16 06:00 56 03/01/16 04:00 98.4 12 136/84 02/29/16 08:00 30 Intake and Output 02/29/16 02/29/16 03/01/16 08:00 16:00 00:00 Intake Total 1470 ml 2140 ml 724 ml Output Total 850 ml 1400 ml 450 ml Balance 620 ml 740 ml 274 ml Result Diagram: 03/01/16 0450 03/01/16 0450 Other Results Laboratory Tests Test 03/01/16 04:50 White Blood Count 9.6 TH/MM3 Red Blood Count 3.74 MIL/MM3 Hemoglobin 11.6 GM/DL Hematocrit 35.2 % Mean Corpuscular Volume 94.1 FL Mean Corpuscular Hemoglobin 31.0 PG Mean Corpuscular Hemoglobin 32.9 % Concent Red Cell Distribution Width 16.5 % Platelet Count 143 TH/MM3 Mean Platelet Volume 9.0 FL Neutrophils (%) (Auto) 79.3 % Lymphocytes (%) (Auto) 9.5 % Monocytes (%) (Auto) 6.9 % Eosinophils (%) (Auto) 3.9 % Basophils (%) (Auto) 0.4 % Neutrophils # (Auto) 7.6 TH/MM3 Lymphocytes # (Auto) 0.9 TH/MM3 Monocytes # (Auto) 0.7 TH/MM3 Eosinophils # (Auto) 0.4 TH/MM3 Basophils # (Auto) 0.0 TH/MM3 CBC Comment DIFF FINAL Differential Comment Sodium Level 151 MEQ/L Potassium Level 3.6 MEQ/L Chloride Level 111 MEQ/L Carbon Dioxide Level 36.3 MEQ/L Anion Gap 4 MEQ/L Blood Urea Nitrogen 30 MG/DL Creatinine 1.36 MG/DL Estimat Glomerular Filtration 63 ML/MIN Rate Random Glucose 96 MG/DL Calcium Level 8.1 MG/DL Imaging Last Impressions Chest X-Ray 02/29/16 0000 Signed Impressions: Service Date/Time: February 14:56 - CONCLUSION: No visualized Dobbhoff tube. Taryn Lindquist MD Head CT 02/24/16 0000 Signed Impressions: Service Date/Time: Wednesday, February 24, 2016 10:53 - CONCLUSION: Moderate motion artifact otherwise negative. Yunier Delgado MD FACR Objective Remarks GENERAL: Patient is 66 yo on Precedex infusion off BIPAP SKIN: Warm and dry. HEAD: Normocephalic. EYES: No scleral icterus. No injection or drainage. NECK: Supple, trachea midline. No JVD or lymphadenopathy. CARDIOVASCULAR: Regular rate and rhythm without murmurs, gallops, or rubs. RESPIRATORY: Breath sounds equal bilaterally. No accessory muscle use. GASTROINTESTINAL: Abdomen soft, non-tender, nondistended. MUSCULOSKELETAL: No cyanosis, or edema. A/P Assessment and Plan 66-year-old male with: Encephalopathy Acute respiratory failure requiring BiPAP Acute decompensated systolic heart failure Nonischemic cardiomyopathy Elevated troponin CKD stage III Hypertension Plan: Neuro: On Precedex drip for agitation. Wean off Precedex drip and monitor neuro status. For MRI brain per neuro- Dr. Frances Ativan 2mg IV Q4PRN agitation CV: On Amiodarone 200mg Q12 for ventricular ectopy. Continue aspirin, Plavix , statin. Not on Tano-I due to renal dysfunction t/c starting Tano-I in next 24hrs if renal function continue to improve. Echo showed EF 15-20%, diffuse hypokinesis Cards is following- Dr. Serra Pulmonary: Wean down oxygen as deonna keep sat >92% Bronchodilators, NIPPAV PRN for resp distress GI/liver: Dobbhoff clogged last night. Will consult speech Renal/: Strict intake output, monitor and replete electrolytes, follow BUN/ creatinine. Continue Lasix 20mg Q12, on Free water 300ml Q6, monitor sodium level. Cr: 1.36 today from 1.61 ID: Monitor for signs of infections ( Fever, WBC) Endocrine: SSI for glycemic control if needed.TSH 1.29 on 02/23 Heme: Monitor CBC Prophylaxis: SCDs/Lovenox Level 3 Adrienne Gonzáles MD Mar 01, 2016 08:48
[2016-03-01] MEDS: HEPARIN SODIUM - SQ 10,000 UNITS/ML VIAL SQ SCH ×2 (09:00→21:46)
[2016-03-01] MEDS: AMIODARONE 200 MG TAB PO SCH ×2 (09:00→21:00)
[2016-03-01] MEDS: ASPIRIN 81 MG CHEW TAB CHEW SCH (09:00)
[2016-03-01] MEDS: FUROSEMIDE 40 MG/4 ML VIAL IV PUSH SCH ×2 (09:00→21:46)
[2016-03-01] MEDS: CLOPIDOGREL 75 MG TAB PO SCH (09:00)
[2016-03-01] MEDS: LORazepam 2 MG/ML VIAL IV PUSH PRN (16:51)
--- NOTE | 2016-03-01 17:01 | HHI.PR ---
Review/Management Diagnosis probable metabolic encephalopathy Plan unable to do MRI due to aggitation Diagnosis/Plan: Subjective Subjective Comments No acute events reported pt is still aggitated and confused. Active Medications Current Medications Medications (Trade) Dose Ordered Sig/Rogelio Route Start Time Stop Time Status Last Admin (Tylenol) 650 mg Q4H PRN PO 02/22/16 20:15 (Zofran Inj) 4 mg Q6H PRN IVP 02/22/16 20:15 (Compazine Supp) 25 mg Q12H PRN ME 02/22/16 20:15 (Dulcolax Supp) 10 mg DAILY PRN ME 02/22/16 20:15 02/29/16 06:31 (Milk Of Magncomfort Liq) 30 ml Q12H PRN PO 02/22/16 20:15 (Senokot) 17.2 mg Q12H PRN PO 02/22/16 20:15 02/28/16 17:53 (Restoril) 15 mg HS PRN PO 02/22/16 20:15 03/01/16 01:30 (Aspirin Chew) 81 mg DAILY CHEW 02/23/16 09:00 03/01/16 09:00 (Plavix) 75 mg DAILY PO 02/23/16 09:00 03/01/16 09:00 (Lipitor) 80 mg HS PO 02/23/16 21:00 02/29/16 19:58 (NS Flush) 2 ml BID IVF 02/23/16 21:00 02/29/16 19:58 (NS Flush) 2 ml UNSCH PRN IVF 02/23/16 10:30 02/27/16 04:49 Miscellaneous Information Patient in critical care unit? Ass... Q361D XX 02/23/16 16:45 02/23/16 16:45 (Heparin Inj) 5,000 units Q12HR SQ 02/23/16 21:00 03/01/16 09:00 (Haldol Inj) 2 mg Q6H PRN IM 02/24/16 08:45 02/29/16 08:50 (Bactroban Nasal 2% Oint) 1 applic BID EACH NARE 02/24/16 09:00 03/02/16 08:59 02/29/16 19:58 (Coreg) 3.125 mg Q12HR PO 02/24/16 21:00 Hold 02/26/16 09:03 (Narcan Inj) 0.4 mg UNSCH PRN IV 02/24/16 11:30 02/24/16 12:16 (Apresoline Inj) 10 mg Q4H PRN IV PUSH 02/24/16 21:45 02/24/16 21:50 Labetalol HCl 10 mg 10 mg Q2H PRN IVS 02/25/16 08:45 (KCl 20 Meq Premix Inj) 100 ml @ 50 mls/hr Q12H IV 02/26/16 10:00 02/29/16 22:56 Amiodarone HCl 200 mg 200 mg Q12HR PO 02/27/16 09:45 03/01/16 09:00 (Precedex Inj/NS 250 ml Inj) 250 ml @ 0 mls/hr TITRATE IV 02/28/16 22:30 03/01/16 00:07 (Free Water) VOLUME OF WATER: ( 250 ) ML Q6HR G-TUBE 02/29/16 12:00 03/01/16 12:00 (Lasix Inj) 20 mg Q12H IV PUSH 02/29/16 09:00 03/01/16 09:00 (Ativan Inj) 2 mg Q4H PRN IV PUSH 03/01/16 08:45 03/01/16 16:51 Allergies Allergies Coded Allergies *MDRO Multi-Drug Resistant Organism (Verified Adverse Reaction, Unknown, MRSA , 02/26/16) Exam I&O / VS 02/29/16 02/29/16 03/01/16 15:00 23:00 07:00 Intake Total 2140 ml 724 ml 1021 ml Output Total 1400 ml 450 ml 400 ml Balance 740 ml 274 ml 621 ml IV Total 471 ml 247 ml 378 ml Tube Feeding 1669 ml 477 ml 393 ml Other 250 ml Output Urine Total 1400 ml 450 ml 400 ml # Bowel Movements 1 0 1 Vital Signs Date Time Temp Pulse Resp B/P Pulse Ox O2 Delivery O2 Flow Rate FiO2 03/01/16 14:00 71 03/01/16 12:00 100 Nasal Cannula 03/01/16 12:00 65 03/01/16 10:00 63 03/01/16 08:22 94 Nasal Cannula 3.00 03/01/16 08:00 100 Nasal Cannula 03/01/16 08:00 70 03/01/16 06:00 56 03/01/16 04:00 98.4 72 12 136/84 100 03/01/16 04:00 72 03/01/16 04:00 100 Nasal Cannula 03/01/16 02:00 64 03/01/16 00:00 98.9 61 21 154/78 99 03/01/16 00:00 61 03/01/16 00:00 99 Nasal Cannula 02/29/16 22:00 59 02/29/16 21:01 100 Nasal Cannula 3.00 02/29/16 20:00 98.5 59 22 152/80 100 02/29/16 20:00 100 Nasal Cannula 02/29/16 20:00 59 02/29/16 18:00 61 Exam Comments lethargic PERRL MOTOR--no spontaneous limb movement, does withdraw BLE to tactile stim Objective Micro and Labs Laboratory Tests Test 03/01/16 04:50 White Blood Count 9.6 Red Blood Count 3.74 Hemoglobin 11.6 Hematocrit 35.2 Mean Corpuscular Volume 94.1 Mean Corpuscular Hemoglobin 31.0 Mean Corpuscular Hemoglobin 32.9 Concent Red Cell Distribution Width 16.5 Platelet Count 143 Mean Platelet Volume 9.0 Neutrophils (%) (Auto) 79.3 Lymphocytes (%) (Auto) 9.5 Monocytes (%) (Auto) 6.9 Eosinophils (%) (Auto) 3.9 Basophils (%) (Auto) 0.4 Neutrophils # (Auto) 7.6 Lymphocytes # (Auto) 0.9 Monocytes # (Auto) 0.7 Eosinophils # (Auto) 0.4 Basophils # (Auto) 0.0 CBC Comment DIFF FINAL Differential Comment Sodium Level 151 Potassium Level 3.6 Chloride Level 111 Carbon Dioxide Level 36.3 Anion Gap 4 Blood Urea Nitrogen 30 Creatinine 1.36 Estimat Glomerular Filtration 63 Rate Random Glucose 96 Calcium Level 8.1 Augustine Frances PhD MD Mar 01, 2016 17:01
[2016-03-01] MEDS: MUPIROCIN 2% OINT 1 APPLIC/GM SYR EACH NARE SCH (19:40)
[2016-03-01] MEDS: SODIUM CHLORIDE 0.9% FLUSH 5 ML FLUSH IVF SCH (19:41)
[2016-03-01] MEDS: ATORVASTATIN 80 MG TAB PO SCH (21:00)
[2016-03-01] MEDS: POTASSIUM CHLOR 20 MEQ PREMIX 100 ML IV SCH (21:45)
[2016-03-01] MEDS ORDERED: FUROSEMIDE 100 MG/10 ML VIAL IV PUSH ONE (22:47)
[2016-03-02] VITALS (15 sets, daily range): BP systolic 138–177; BP diastolic 75–95; PULSE 63–105; RESP 16–27; TEMP 97.9–98.2; O2SAT 94–100
[2016-03-02] MEDS: LORazepam 2 MG/ML VIAL IV PUSH PRN
[2016-03-02] MEDS: RESP: ALBUTEROL 2.5 MG/IPRATROPIUM 0.5 MG NEB (SCH) NEB ×6 (03:26→23:38)
[2016-03-02] MEDS: FREE WATER G-TUBE SCH ×4 (05:53→23:41)
--- NOTE | 2016-03-02 08:48 | HHI.CCPN ---
Subjective Remarks/Hospital Course 02/24: 66-year-old male who was transferred from [facility] to [facility] ER on February 22, 2016 with dyspnea on exertion which had been worsening over the last 1 year, chest pains with exertion. He had an elevated troponin of 0.92. 2-D echo revealed LVEF 10-15% Patient underwent cardiac catheterization after evaluation by Dr. Serra from cardiology. Cardiac catheter revealed normal coronaries. Patient was diagnosed to have a nonischemic cardiomyopathy. He is being diuresed. I was consulted by Dr. Person this morning as patient had been off BiPAP overnight and was on 2 L nasal cannula however was in respiratory extremis breathing about 30-40 times per minute with the concern that he may need intubation. When I evaluated the patient he had just received Ativan earlier and was extremely drowsy and not arousable. He was using accessory muscles of respiration breathing in the 30s. I immediately ordered BiPAP to be initiated. He has been diuresing well with Lasix. Patient had runs of nonsustained V. tach overnight and was started on an amiodarone drip per protocol. History was obtained by reviewing records, discussion with Dr. Person, [employer]ER as well as Dr. Serra previously. 02/25: Still requiring BiPAP. He decompensates quickly on attempting to place on nasal cannula. 02/26: Remains encephalopathic on BiPAP with full facemask. Tolerating tube feeds via Dobbhoff. Continues to diurese 02/27 Patient is on Precedex drip and BIPAP 15/5 with 30% FIO2. Afebrile. 02/28 No acute events overnight. On Precedex drip for agitation and BIPAP 15/5 with 30%FIO2. Tolerating tube feeds. 03/01 Patient is off BIPAP remains on Precedex drip. Afebrile. On 3L oxygen. Dobbhoff tube clogged last night. 03/02 Patient is off Precedex drip, given Ativan 2mg overnight for agitation and Lasix 60mg IV last night for fluid overload. On 3L oxygen with good sats. Afebrile. Objective Vital Signs Date Time Temp Pulse Resp B/P Pulse Ox O2 Delivery O2 Flow Rate FiO2 03/02/16 08:00 100 Nasal Cannula 3.00 03/02/16 06:07 66 03/02/16 04:03 30 03/02/16 04:00 98.0 16 143/75 Intake and Output 03/01/16 03/01/16 03/02/16 08:00 16:00 00:00 Intake Total 1021 ml 251 ml 1280 ml Output Total 400 ml 1030 ml 150 ml Balance 621 ml -779 ml 1130 ml Result Diagram: 03/01/16 0450 03/01/16 0450 Imaging Last Impressions Chest X-Ray 02/29/16 0000 Signed Impressions: Service Date/Time: February 14:56 - CONCLUSION: No visualized Dobbhoff tube. Taryn Lindquist MD Head CT 02/24/16 0000 Signed Impressions: Service Date/Time: Wednesday, February 24, 2016 10:53 - CONCLUSION: Moderate motion artifact otherwise negative. Yunier Delgado MD FACR Objective Remarks GENERAL: Patient is 66 yo lying in bed in no acute resp distress SKIN: Warm and dry. HEAD: Normocephalic. EYES: No scleral icterus. No injection or drainage. NECK: Supple, trachea midline. No JVD or lymphadenopathy. CARDIOVASCULAR: Regular rate and rhythm without murmurs, gallops, or rubs. RESPIRATORY: Breath sounds equal bilaterally. No accessory muscle use. GASTROINTESTINAL: Abdomen soft, non-tender, nondistended. MUSCULOSKELETAL: No cyanosis, or edema. Neuro: Lethargic A/P Assessment and Plan 66-year-old male with: Encephalopathy Acute respiratory failure requiring BiPAP Acute decompensated systolic heart failure Nonischemic cardiomyopathy Elevated troponin CKD stage III Hypertension Plan: Neuro: Off Precedex drip monitor neuro status. For MRI brain per neuro- Dr. Frances Ativan 1mg IV Q4PRN agitation CV: On Amiodarone 200mg Q12 for ventricular ectopy. Continue aspirin, Plavix , statin. Not on Tano-I due to renal dysfunction follow up on BMP today Echo showed EF 15-20%, diffuse hypokinesis Cards is following- Dr. Serra Pulmonary: Continue with oxygen as deonna keep sat >92% Bronchodilators, NIPPAV PRN for resp distress Check CXR GI/liver: On mechanical soft diet per speech however patient is lethargic t/c replacing Dobbhoff and restart tube feeds. Renal/: Strict intake output, monitor and replete electrolytes, follow BUN/ creatinine. Continue Lasix 20mg Q12, on Free water 300ml Q6, monitor sodium level. KCL 20mg BID ID: Monitor for signs of infections ( Fever, WBC) Endocrine: SSI for glycemic control if needed.TSH 1.29 on 02/23 Heme: Monitor CBC Prophylaxis: SCDs/Lovenox Follow up on labs Level 3 Adrienne Gonzáles MD Mar 02, 2016 08:48
[2016-03-02] MEDS: AMIODARONE 200 MG TAB PO SCH ×2 (09:06→21:16)
[2016-03-02] MEDS: HEPARIN SODIUM - SQ 10,000 UNITS/ML VIAL SQ SCH ×2 (09:07→21:17)
[2016-03-02] MEDS: CLOPIDOGREL 75 MG TAB PO SCH (09:07)
[2016-03-02] MEDS: FUROSEMIDE 40 MG/4 ML VIAL IV PUSH SCH ×2 (09:07→21:17)
[2016-03-02] MEDS: SODIUM CHLORIDE 0.9% FLUSH 5 ML FLUSH IVF SCH ×2 (09:07→21:17)
[2016-03-02] MEDS: ASPIRIN 81 MG CHEW TAB CHEW SCH (09:08)
--- NOTE | 2016-03-02 09:44 | RADRPT ---
EXAM DATE/TIME: 03/02/2016 08:49 [place] COMPARISON: CHEST SINGLE AP, February 28, 2016, 10:18. INDICATIONS : Shortness of breath MEDICAL HISTORY : Cardiovascular disease. Hypertension. SURGICAL HISTORY : None. ENCOUNTER: Subsequent ACUITY: 1 week PAIN SCORE: Non-responsive. LOCATION: Bilateral chest FINDINGS: A single view of the chest demonstrates persistent cardiomegaly and perihilar vascular congestion rig ht greater left. There is no pneumothorax. Osseous structures are intact. CONCLUSION: Stable cardiomegaly and perihilar vascular congestion unchanged Dallin Lopez MD on March 02, 2016 at 9:42 Board Certified Radiologist. This report was verified electronically.
--- NOTE | 2016-03-02 10:04 | PD.CARD.PN ---
Subjective Subjective Remarks Pt denies complaints. Objective Medications Administered Medications Medications (Trade) Dose Ordered Sig/Rogelio Route PRN Reason Start Time Stop Time Status Last Admin Dose Admin Bisacodyl (Dulcolax Supp) 10 mg DAILY PRN [place] CONSTIPATION 02/22/16 20:15 02/29/16 06:31 Sennosides (Senokot) 17.2 mg Q12H PRN PO CONSTIPATION 02/22/16 20:15 02/28/16 17:53 Temazepam (Restoril) 15 mg HS PRN PO INSOMNIA 02/22/16 20:15 03/01/16 01:30 Aspirin (Aspirin Chew) 81 mg DAILY CHEW 02/23/16 09:00 03/02/16 09:08 Clopidogrel Bisulfate (Plavix) 75 mg DAILY PO 02/23/16 09:00 03/02/16 09:07 Atorvastatin Calcium (Lipitor) 80 mg HS PO 02/23/16 21:00 02/29/16 19:58 IV Flush (NS Flush) 2 ml BID IVF 02/23/16 21:00 03/02/16 09:07 IV Flush (NS Flush) 2 ml UNSCH PRN IVF FLUSH AFTER USING IV ACCESS 02/23/16 10:30 02/27/16 04:49 Miscellaneous Information Patient in critical care unit? Ass... Q361D XX 02/23/16 16:45 02/23/16 16:45 Heparin Sodium (Porcine) (Heparin Inj) 5,000 units Q12HR SQ 02/23/16 21:00 03/02/16 09:07 Haloperidol Lactate (Haldol Inj) 2 mg Q6H PRN IM agitation 02/24/16 08:45 02/29/16 08:50 Carvedilol (Coreg) 3.125 mg Q12HR PO 02/24/16 21:00 Hold 02/26/16 09:03 Naloxone HCl (Narcan Inj) 0.4 mg UNSCH PRN IV SEE LABEL COMMENTS 02/24/16 11:30 02/24/16 12:16 Hydralazine HCl 10 mg 10 mg Q4H PRN IV PUSH SBP>160, DBP>90 02/24/16 21:45 02/24/16 21:50 Potassium Chloride (KCl 20 Meq Premix Inj) 100 ml @ 50 mls/hr Q12H IV 02/26/16 10:00 03/01/16 21:45 Amiodarone HCl 200 mg 200 mg Q12HR PO 02/27/16 09:45 03/02/16 09:06 Dexmedetomidine HCl/Sodium Chloride (Precedex Inj/NS 250 ml Inj) 250 ml @ 0 mls/hr TITRATE IV 02/28/16 22:30 03/01/16 00:07 Water (Free Water) VOLUME OF WATER: ( 250 ) ML Q6HR G-TUBE 02/29/16 12:00 03/01/16 12:00 Furosemide (Lasix Inj) 20 mg Q12H IV PUSH 02/29/16 09:00 03/02/16 09:07 Vital Signs / I&O Vital Signs Date Time Temp Pulse Resp B/P Pulse Ox O2 Delivery O2 Flow Rate FiO2 03/02/16 08:00 100 Nasal Cannula 3.00 03/02/16 06:07 66 03/02/16 04:03 100 30 03/02/16 04:00 100 Bi-Pap 30 03/02/16 04:00 64 03/02/16 04:00 98.0 64 16 143/75 100 03/02/16 02:00 63 03/02/16 00:37 100 30 03/02/16 00:00 72 03/02/16 00:00 97.9 72 17 158/81 100 03/02/16 00:00 100 Bi-Pap 30 03/01/16 23:37 100 30 03/01/16 23:00 100 Bi-Pap 30 03/01/16 22:00 60 03/01/16 20:00 56 03/01/16 20:00 100 Nasal Cannula 03/01/16 20:00 97.7 56 15 138/74 100 03/01/16 19:53 100 Nasal Cannula 3.00 03/01/16 18:00 70 03/01/16 16:00 98.3 53 15 137/75 100 03/01/16 16:00 68 03/01/16 16:00 99 Nasal Cannula 03/01/16 14:00 71 03/01/16 12:00 100 Nasal Cannula 03/01/16 12:00 65 03/01/16 12:00 98.5 61 16 144/76 99 I/O 03/01/16 03/01/16 03/01/16 03/02/16/14/17 1/14/17 07:00 15:00 23:00 07:00 15:00 23:00 Intake Total 1021 ml 251 ml 1280 ml 138 ml Output Total 400 ml 1030 ml 150 ml 3200 ml Balance 621 ml -779 ml 1130 ml -3062 ml IV Total 378 ml 251 ml 1280 ml 138 ml Tube Feeding 393 ml Other 250 ml Output Urine Total 400 ml 1030 ml 150 ml 3200 ml # Bowel Movements 1 1 0 0 Physical Exam GENERAL: This is a well-nourished, well-developed patient, in no apparent distress. CARDIOVASCULAR: Regular rate and rhythm without murmurs, gallops, or rubs. RESPIRATORY: Clear to auscultation. Breath sounds equal bilaterally. No wheezes , rales, or rhonchi. GASTROINTESTINAL: Abdomen soft, non-tender, nondistended. Normal active bowel sounds MUSCULOSKELETAL: Extremities without clubbing, cyanosis, or edema. NEURO: Alert & Oriented x4 to person, place, time, situation. Moves all ext x4 (in 4-pt restraints) Imaging Last Impressions Chest X-Ray 03/02/16 0000 Signed Impressions: Service Date/Time: Wednesday, March 02, 2016 08:49 - CONCLUSION: Stable cardiomegaly and perihilar vascular congestion unchanged Dallin Lopez MD Head CT 02/24/16 0000 Signed Impressions: Service Date/Time: Wednesday, February 24, 2016 10:53 - CONCLUSION: Moderate motion artifact otherwise negative. Yunier Delgado MD FACR Assessment and Plan Problem List: (1) NICM (nonischemic cardiomyopathy) (2) Acute systolic heart failure (3) Acute kidney injury superimposed on CKD (4) Hypertension (5) NSTEMI (non-ST elevated myocardial infarction) (6) Hypoalbuminemia Assessment and Plan 1) Biventricular heart failure, NICM EF 15-20% 2) No obstructive CAD 3) Amiodarone PO. may need Lifevest on discharge vs continue amiodarone 4) Follow electrolytes and replace as necessary, free water flushes 5) Continue diuresis 6) ASA/Plavix 7) After diuresis, most likely needs JOHNATHAN-I Joey Martin MD Mar 02, 2016 10:04
[2016-03-02] MEDS: POTASSIUM CHLOR 20 MEQ PREMIX 100 ML IV SCH ×2 (10:51→21:17)
[2016-03-02 11:57] LABS: AUTOMATED NEUTROPHIL # 12.2 TH/MM3 (1.8-7.7); BASOPHIL % 0.2 % (0.0-2.0); EOSINOPHIL # 0.2 TH/MM3 (0-0.4); EOSINOPHIL % 1.2 % (0.0-4.0); HEMATOCRIT 39.9 % (39.0-51.0); HEMO FLAGS DIFF FINAL; LYMPH % 5.7 % (9.0-44.0); LYMPHOCYTE # 0.8 TH/MM3 (1.0-4.8); MEAN CELL VOLUME 94.6 FL (80.0-100.0); MEAN CORPUSCULAR HEMOGLOBIN 30.8 PG (27.0-34.0); MEAN CORPUSCULAR HGB CONC 32.6 % (32.0-36.0); NEUT % 86.9 % (16.0-70.0); PLATELET COUNT 158 TH/MM3 (150-450); RED BLOOD COUNT 4.21 MIL/MM3 (4.50-5.90); RED CELL DISTRIBUTION WIDTH 16.4 % (11.6-17.2)
[2016-03-02 12:05] LABS: BICARBONATE 33.8 MEQ/L (21.0-32.0); POTASSIUM 3.9 MEQ/L (3.5-5.1)
[2016-03-02] MEDS: ATORVASTATIN 80 MG TAB PO SCH (21:16)
[2016-03-03] VITALS (14 sets, daily range): BP systolic 155–193; BP diastolic 83–102; PULSE 87–98; RESP 13–28; TEMP 97.6–99.1; O2SAT 97–100
[2016-03-03] MEDS: hydrALAZINE HCL 20 MG/ML VIAL IV PUSH PRN ×4 (01:08→20:13)
[2016-03-03] MEDS: LORazepam 2 MG/ML VIAL IV PUSH PRN ×2 (01:09→06:03)
[2016-03-03] MEDS: HALOPERIDOL LACTATE 5 MG/ML AMP IM PRN (02:13)
[2016-03-03] MEDS: RESP: ALBUTEROL 2.5 MG/IPRATROPIUM 0.5 MG NEB (SCH) NEB ×3 (03:46→11:28)
[2016-03-03] MEDS: FREE WATER G-TUBE SCH ×3 (06:00→17:29)
[2016-03-03] MEDS: ASPIRIN 81 MG CHEW TAB CHEW SCH (08:43)
[2016-03-03] MEDS: FUROSEMIDE 40 MG/4 ML VIAL IV PUSH SCH (08:43)
[2016-03-03] MEDS: CLOPIDOGREL 75 MG TAB PO SCH (08:43)
[2016-03-03] MEDS: SODIUM CHLORIDE 0.9% FLUSH 5 ML FLUSH IVF SCH ×2 (08:43→20:14)
[2016-03-03] MEDS: AMIODARONE 200 MG TAB PO SCH ×2 (08:43→20:13)
--- NOTE | 2016-03-03 08:43 | HHI.CCPN ---
Subjective Remarks/Hospital Course 02/24: 66-year-old male who was transferred from [facility] to [facility] ER on February 22, 2016 with dyspnea on exertion which had been worsening over the last 1 year, chest pains with exertion. He had an elevated troponin of 0.92. 2-D echo revealed LVEF 10-15% Patient underwent cardiac catheterization after evaluation by Dr. Serra from cardiology. Cardiac catheter revealed normal coronaries. Patient was diagnosed to have a nonischemic cardiomyopathy. He is being diuresed. I was consulted by Dr. Person this morning as patient had been off BiPAP overnight and was on 2 L nasal cannula however was in respiratory extremis breathing about 30-40 times per minute with the concern that he may need intubation. When I evaluated the patient he had just received Ativan earlier and was extremely drowsy and not arousable. He was using accessory muscles of respiration breathing in the 30s. I immediately ordered BiPAP to be initiated. He has been diuresing well with Lasix. Patient had runs of nonsustained V. tach overnight and was started on an amiodarone drip per protocol. History was obtained by reviewing records, discussion with Dr. Person, CIRCULATING PROCESS INSPECTOR as well as Dr. Serra previously. 02/25: Still requiring BiPAP. He decompensates quickly on attempting to place on nasal cannula. 02/26: Remains encephalopathic on BiPAP with full facemask. Tolerating tube feeds via Dobbhoff. Continues to diurese 02/27 Patient is on Precedex drip and BIPAP 15/5 with 30% FIO2. Afebrile. 02/28 No acute events overnight. On Precedex drip for agitation and BIPAP 15/5 with 30%FIO2. Tolerating tube feeds. 03/01 Patient is off BIPAP remains on Precedex drip. Afebrile. On 3L oxygen. Dobbhoff tube clogged last night. 03/02 Patient is off Precedex drip, given Ativan 2mg overnight for agitation and Lasix 60mg IV last night for fluid overload. On 3L oxygen with good sats. Afebrile. 03/03 Patient remains off Precedex drip given Haldol and Ativan overnight for agitation. On 3L oxygen. Objective Vital Signs Date Time Temp Pulse Resp B/P Pulse Ox O2 Delivery O2 Flow Rate FiO2 03/03/16 08:01 99 Nasal Cannula 3.00 03/03/16 06:00 98 03/03/16 04:00 99.1 28 170/83 03/02/16 04:03 30 Intake and Output 03/02/16 03/02/16 03/03/16 08:00 16:00 00:00 Intake Total 138 ml 467 ml 311 ml Output Total 3200 ml 1000 ml 400 ml Balance -3062 ml -533 ml -89 ml Result Diagram: 03/02/16 1040 03/02/16 1040 Other Results Laboratory Tests Test 03/02/16 10:40 White Blood Count 14.0 TH/MM3 Red Blood Count 4.21 MIL/MM3 Hemoglobin 13.0 GM/DL Hematocrit 39.9 % Mean Corpuscular Volume 94.6 FL Mean Corpuscular Hemoglobin 30.8 PG Mean Corpuscular Hemoglobin 32.6 % Concent Red Cell Distribution Width 16.4 % Platelet Count 158 TH/MM3 Mean Platelet Volume 8.9 FL Neutrophils (%) (Auto) 86.9 % Lymphocytes (%) (Auto) 5.7 % Monocytes (%) (Auto) 6.0 % Eosinophils (%) (Auto) 1.2 % Basophils (%) (Auto) 0.2 % Neutrophils # (Auto) 12.2 TH/MM3 Lymphocytes # (Auto) 0.8 TH/MM3 Monocytes # (Auto) 0.8 TH/MM3 Eosinophils # (Auto) 0.2 TH/MM3 Basophils # (Auto) 0.0 TH/MM3 CBC Comment DIFF FINAL Differential Comment Sodium Level 150 MEQ/L Potassium Level 3.9 MEQ/L Chloride Level 109 MEQ/L Carbon Dioxide Level 33.8 MEQ/L Anion Gap 7 MEQ/L Blood Urea Nitrogen 23 MG/DL Creatinine 1.35 MG/DL Estimat Glomerular Filtration 64 ML/MIN Rate Random Glucose 98 MG/DL Calcium Level 8.4 MG/DL Imaging Last Impressions Chest X-Ray 03/02/16 0000 Signed Impressions: Service Date/Time: Wednesday, March 02, 2016 08:49 - CONCLUSION: Stable cardiomegaly and perihilar vascular congestion unchanged Dallin Lopez MD Head CT 02/24/16 0000 Signed Impressions: Service Date/Time: Wednesday, February 24, 2016 10:53 - CONCLUSION: Moderate motion artifact otherwise negative. Yunier Delgado MD FACR Objective Remarks GENERAL: Patient is 66 yo lying in bed in no acute resp distress SKIN: Warm and dry. HEAD: Normocephalic. EYES: No scleral icterus. No injection or drainage. NECK: Supple, trachea midline. No JVD or lymphadenopathy. CARDIOVASCULAR: Regular rate and rhythm without murmurs, gallops, or rubs. RESPIRATORY: Breath sounds equal bilaterally. No accessory muscle use. GASTROINTESTINAL: Abdomen soft, non-tender, nondistended. MUSCULOSKELETAL: No cyanosis, or edema. Neuro: Lethargic A/P Assessment and Plan 66-year-old male with: Encephalopathy Acute respiratory failure requiring BiPAP Acute decompensated systolic heart failure Nonischemic cardiomyopathy Elevated troponin CKD stage III Hypertension Plan: Neuro: Off Precedex drip monitor neuro status. Ativan 1mg IV Q4PRN agitation, Haldol PRN CV: On Amiodarone 200mg Q12 for ventricular ectopy. Continue aspirin, Plavix , statin. Not on Tano-I due to renal dysfunction Echo showed EF 15-20%, diffuse hypokinesis Cards is following- Dr. Serra Pulmonary: Continue with oxygen as deonna keep sat >92% Bronchodilators, NIPPAV PRN for resp distress GI/liver: Will get speech reeval today if kept NPO replace Dobbhoff and restart tube feeds. Renal/: Strict intake output, monitor and replete electrolytes, follow BUN/ creatinine. Continue Lasix 20mg Q12, monitor sodium level. ID: Monitor for signs of infections ( Fever, WBC) Endocrine: SSI for glycemic control if needed.TSH 1.29 on 02/23 Heme: Monitor CBC Prophylaxis: SCDs/Lovenox Follow up on labs Level 3 Adrienne Gonzáles MD Mar 03, 2016 08:43
[2016-03-03] MEDS: HEPARIN SODIUM - SQ 10,000 UNITS/ML VIAL SQ SCH ×2 (08:44→20:13)
--- NOTE | 2016-03-03 09:36 | PD.CARD.PN ---
Subjective Subjective Remarks Pt denies complaints Objective Medications Administered Medications Medications (Trade) Dose Ordered Sig/Rogelio Route PRN Reason Start Time Stop Time Status Last Admin Dose Admin Bisacodyl (Dulcolax Supp) 10 mg DAILY PRN [place] CONSTIPATION 02/22/16 20:15 02/29/16 06:31 Sennosides (Senokot) 17.2 mg Q12H PRN PO CONSTIPATION 02/22/16 20:15 02/28/16 17:53 Temazepam (Restoril) 15 mg HS PRN PO INSOMNIA 02/22/16 20:15 03/01/16 01:30 Aspirin (Aspirin Chew) 81 mg DAILY CHEW 02/23/16 09:00 03/03/16 08:43 Clopidogrel Bisulfate (Plavix) 75 mg DAILY PO 02/23/16 09:00 03/03/16 08:43 Atorvastatin Calcium (Lipitor) 80 mg HS PO 02/23/16 21:00 03/02/16 21:16 IV Flush (NS Flush) 2 ml BID IVF 02/23/16 21:00 03/03/16 08:43 IV Flush (NS Flush) 2 ml UNSCH PRN IVF FLUSH AFTER USING IV ACCESS 02/23/16 10:30 02/27/16 04:49 Miscellaneous Information Patient in critical care unit? Ass... Q361D XX 02/23/16 16:45 02/23/16 16:45 Heparin Sodium (Porcine) (Heparin Inj) 5,000 units Q12HR SQ 02/23/16 21:00 03/03/16 08:44 Haloperidol Lactate (Haldol Inj) 2 mg Q6H PRN IM agitation 02/24/16 08:45 03/03/16 02:13 Carvedilol (Coreg) 3.125 mg Q12HR PO 02/24/16 21:00 Hold 02/26/16 09:03 Naloxone HCl (Narcan Inj) 0.4 mg UNSCH PRN IV SEE LABEL COMMENTS 02/24/16 11:30 02/24/16 12:16 Hydralazine HCl (Apresoline Inj) 10 mg Q4H PRN IV PUSH SBP>160, DBP>90 02/24/16 21:45 03/03/16 08:59 Amiodarone HCl 200 mg 200 mg Q12HR PO 02/27/16 09:45 03/03/16 08:43 Dexmedetomidine HCl/Sodium Chloride (Precedex Inj/NS 250 ml Inj) 250 ml @ 0 mls/hr TITRATE IV 02/28/16 22:30 03/01/16 00:07 Water (Free Water) VOLUME OF WATER: ( 250 ) ML Q6HR G-TUBE 02/29/16 12:00 03/03/16 06:00 Furosemide (Lasix Inj) 20 mg Q12H IV PUSH 02/29/16 09:00 03/03/16 08:43 Lorazepam (Ativan Inj) 1 mg Q4H PRN IV PUSH agitation 03/02/16 13:00 03/03/16 06:03 Vital Signs / I&O Vital Signs Date Time Temp Pulse Resp B/P Pulse Ox O2 Delivery O2 Flow Rate FiO2 03/03/16 08:01 99 Nasal Cannula 3.00 03/03/16 06:00 98 03/03/16 04:00 94 03/03/16 04:00 99.1 94 28 170/83 97 03/03/16 04:00 97 Nasal Cannula 3.00 03/03/16 02:00 96 03/03/16 00:00 94 03/03/16 00:00 99 Nasal Cannula 3.00 03/03/16 00:00 99.1 94 25 178/88 99 03/02/16 22:00 82 03/02/16 21:19 100 Nasal Cannula 3.00 03/02/16 20:00 98.0 82 16 154/82 98 03/02/16 20:00 97 Nasal Cannula 3.00 03/02/16 20:00 92 03/02/16 18:00 105 03/02/16 16:00 92 03/02/16 16:00 97.9 92 26 177/93 03/02/16 16:00 Nasal Cannula 3.00 03/02/16 14:00 84 03/02/16 12:00 100 Nasal Cannula 3.00 03/02/16 12:00 84 03/02/16 12:00 97.9 84 27 163/95 100 03/02/16 10:00 78 I/O 03/02/16 03/02/16 03/02/16 03/03/16 03/03/16 03/03/16 07:00 15:00 23:00 07:00 15:00 23:00 Intake Total 138 ml 467 ml 311 ml 373 ml Output Total 3200 ml 1000 ml 400 ml 1000 ml Balance -3062 ml -533 ml -89 ml -627 ml Intake Oral 350 ml 240 ml 250 ml IV Total 138 ml 117 ml 71 ml 123 ml Output Urine Total 3200 ml 1000 ml 400 ml 1000 ml # Bowel Movements 0 0 Physical Exam GENERAL: This is a well-nourished, well-developed patient, in no apparent distress. CARDIOVASCULAR: Regular rate and rhythm without murmurs, gallops, or rubs. RESPIRATORY: Clear to auscultation. Breath sounds equal bilaterally. No wheezes , rales, or rhonchi. GASTROINTESTINAL: Abdomen soft, non-tender, nondistended. Normal active bowel sounds MUSCULOSKELETAL: Extremities without clubbing, cyanosis, or edema. NEURO: Alert & Oriented x4 to person, place, time, situation. Moves all ext x4 (in 4-pt restraints) Laboratory Laboratory Tests Test 03/02/16 10:40 White Blood Count 14.0 TH/MM3 Red Blood Count 4.21 MIL/MM3 Hemoglobin 13.0 GM/DL Hematocrit 39.9 % Mean Corpuscular Volume 94.6 FL Mean Corpuscular Hemoglobin 30.8 PG Mean Corpuscular Hemoglobin 32.6 % Concent Red Cell Distribution Width 16.4 % Platelet Count 158 TH/MM3 Mean Platelet Volume 8.9 FL Neutrophils (%) (Auto) 86.9 % Lymphocytes (%) (Auto) 5.7 % Monocytes (%) (Auto) 6.0 % Eosinophils (%) (Auto) 1.2 % Basophils (%) (Auto) 0.2 % Neutrophils # (Auto) 12.2 TH/MM3 Lymphocytes # (Auto) 0.8 TH/MM3 Monocytes # (Auto) 0.8 TH/MM3 Eosinophils # (Auto) 0.2 TH/MM3 Basophils # (Auto) 0.0 TH/MM3 CBC Comment DIFF FINAL Differential Comment Sodium Level 150 MEQ/L Potassium Level 3.9 MEQ/L Chloride Level 109 MEQ/L Carbon Dioxide Level 33.8 MEQ/L Anion Gap 7 MEQ/L Blood Urea Nitrogen 23 MG/DL Creatinine 1.35 MG/DL Estimat Glomerular Filtration 64 ML/MIN Rate Random Glucose 98 MG/DL Calcium Level 8.4 MG/DL Imaging Last Impressions Chest X-Ray 03/02/16 0000 Signed Impressions: Service Date/Time: Wednesday, March 02, 2016 08:49 - CONCLUSION: Stable cardiomegaly and perihilar vascular congestion unchanged Dallin Lopez MD Head CT 02/24/16 0000 Signed Impressions: Service Date/Time: Wednesday, February 24, 2016 10:53 - CONCLUSION: Moderate motion artifact otherwise negative. Yunier Delgado MD FACR Assessment and Plan Problem List: (1) NICM (nonischemic cardiomyopathy) (2) Acute systolic heart failure Assessment and Plan: seems fairly compensated, will change to PO lasix (3) Acute kidney injury superimposed on CKD (4) Hypertension (5) NSTEMI (non-ST elevated myocardial infarction) (6) Hypoalbuminemia Assessment and Plan 1) Biventricular heart failure, NICM EF 15-20% 2) No obstructive CAD 3) Amiodarone PO. may need Lifevest on discharge vs continue amiodarone 4) Follow electrolytes and replace as necessary, free water flushes 5) Continue diuresis 6) ASA/Plavix 7) After diuresis, most likely needs JOHNATHAN-I No changes today, continue medical therapy Joey Martin MD Mar 03, 2016 09:36
[2016-03-03 13:17] LABS: BICARBONATE 29.7 MEQ/L (21.0-32.0); POTASSIUM 3.9 MEQ/L (3.5-5.1)
[2016-03-03] MEDS: ATORVASTATIN 80 MG TAB PO SCH (20:13)
[2016-03-04] VITALS (14 sets, daily range): BP systolic 159–172; BP diastolic 84–94; PULSE 82–96; RESP 20–28; TEMP 97.5–98.4; O2SAT 96–100
[2016-03-04] MEDS: LORazepam 2 MG/ML VIAL IV PUSH PRN (02:25)
[2016-03-04] MEDS: FREE WATER G-TUBE SCH ×5 (06:00→23:30)
[2016-03-04] MEDS: HEPARIN SODIUM - SQ 10,000 UNITS/ML VIAL SQ SCH ×2 (09:00→20:19)
[2016-03-04] MEDS: SODIUM CHLORIDE 0.9% FLUSH 5 ML FLUSH IVF SCH ×2 (09:00→20:19)
[2016-03-04] MEDS: CLOPIDOGREL 75 MG TAB PO SCH (09:05)
[2016-03-04] MEDS: ASPIRIN 81 MG CHEW TAB CHEW SCH (09:05)
[2016-03-04] MEDS: FUROSEMIDE 40 MG TAB PO SCH (09:05)
[2016-03-04] MEDS: AMIODARONE 200 MG TAB PO SCH ×2 (09:06→20:19)
--- NOTE | 2016-03-04 09:23 | PD.CARD.PN ---
Subjective Subjective Remarks Pt still confused but does admit to some dyspnea today. Objective Medications Administered Medications Medications (Trade) Dose Ordered Sig/Rogelio Route PRN Reason Start Time Stop Time Status Last Admin Dose Admin Bisacodyl (Dulcolax Supp) 10 mg DAILY PRN [place] CONSTIPATION 02/22/16 20:15 02/29/16 06:31 Sennosides (Senokot) 17.2 mg Q12H PRN PO CONSTIPATION 02/22/16 20:15 02/28/16 17:53 Temazepam (Restoril) 15 mg HS PRN PO INSOMNIA 02/22/16 20:15 03/01/16 01:30 Aspirin (Aspirin Chew) 81 mg DAILY CHEW 02/23/16 09:00 03/04/16 09:05 Clopidogrel Bisulfate (Plavix) 75 mg DAILY PO 02/23/16 09:00 03/04/16 09:05 Atorvastatin Calcium (Lipitor) 80 mg HS PO 02/23/16 21:00 03/03/16 20:13 IV Flush (NS Flush) 2 ml BID IVF 02/23/16 21:00 03/04/16 09:00 IV Flush (NS Flush) 2 ml UNSCH PRN IVF FLUSH AFTER USING IV ACCESS 02/23/16 10:30 02/27/16 04:49 Miscellaneous Information Patient in critical care unit? Ass... Q361D XX 02/23/16 16:45 02/23/16 16:45 Heparin Sodium (Porcine) (Heparin Inj) 5,000 units Q12HR SQ 02/23/16 21:00 03/04/16 09:00 Haloperidol Lactate (Haldol Inj) 2 mg Q6H PRN IM agitation 02/24/16 08:45 03/03/16 02:13 Carvedilol (Coreg) 3.125 mg Q12HR PO 02/24/16 21:00 Hold 02/26/16 09:03 Naloxone HCl (Narcan Inj) 0.4 mg UNSCH PRN IV SEE LABEL COMMENTS 02/24/16 11:30 02/24/16 12:16 Hydralazine HCl (Apresoline Inj) 10 mg Q4H PRN IV PUSH SBP>160, DBP>90 02/24/16 21:45 03/03/16 20:13 Labetalol HCl (Trandate Inj) 10 mg Q2H PRN IVS SBP greater than 150mm Hg 02/25/16 08:45 03/03/16 22:44 Amiodarone HCl (Cordarone) 200 mg Q12HR PO 02/27/16 09:45 03/04/16 09:06 Water (Free Water) VOLUME OF WATER: ( 250 ) ML Q6HR G-TUBE 02/29/16 12:00 03/04/16 00:00 Lorazepam (Ativan Inj) 1 mg Q4H PRN IV PUSH agitation 03/02/16 13:00 03/04/16 02:25 Furosemide (Lasix) 40 mg DAILY PO 03/04/16 09:00 03/04/16 09:05 Vital Signs / I&O Vital Signs Date Time Temp Pulse Resp B/P Pulse Ox O2 Delivery O2 Flow Rate FiO2 03/04/16 08:18 96 Nasal Cannula 3.00 03/04/16 08:00 94 03/04/16 08:00 97.9 96 20 172/92 99 03/04/16 08:00 99 Nasal Cannula 2.00 03/04/16 06:00 94 03/04/16 04:00 92 03/04/16 04:00 98.3 92 21 166/91 98 03/04/16 04:00 98 Nasal Cannula 2.00 03/04/16 02:00 87 03/04/16 00:00 98.4 82 23 159/87 99 03/04/16 00:00 99 Nasal Cannula 2.00 03/04/16 00:00 82 03/03/16 22:00 97 03/03/16 20:17 100 Nasal Cannula 3.00 03/03/16 20:00 99 Nasal Cannula 2.00 03/03/16 20:00 97.9 92 24 176/101 99 03/03/16 20:00 92 03/03/16 18:00 97 03/03/16 16:00 93 03/03/16 16:00 97.6 93 27 173/90 100 03/03/16 16:00 100 Nasal Cannula 2.00 03/03/16 14:00 89 03/03/16 12:00 97.7 87 16 155/87 100 03/03/16 12:00 100 Nasal Cannula 3.00 03/03/16 12:00 87 03/03/16 10:00 91 I/O 03/03/16 03/03/16 03/03/16 03/04/16 03/04/16 03/04/16 06:59 14:59 22:59 06:59 14:59 22:59 Intake Total 373 ml 304 ml 328 ml 308 ml Output Total 1000 ml 1350 ml 500 ml 250 ml Balance -627 ml -1046 ml -172 ml 58 ml Intake Oral 250 ml 200 ml 240 ml 240 ml IV Total 123 ml 104 ml 88 ml 68 ml Output Urine Total 1000 ml 1350 ml 500 ml 250 ml Physical Exam GENERAL: This is a well-nourished, well-developed patient, in no apparent distress. CARDIOVASCULAR: Regular rate and rhythm without murmurs, gallops, or rubs. RESPIRATORY: Clear to auscultation. Breath sounds equal bilaterally. No wheezes , rales, or rhonchi. GASTROINTESTINAL: Abdomen soft, non-tender, nondistended. Normal active bowel sounds MUSCULOSKELETAL: Extremities without clubbing, cyanosis, or edema. NEURO: Alert & Oriented x4 to person, place, time, situation. Moves all ext x4 (in 4-pt restraints) Laboratory Laboratory Tests Test 03/03/16 12:35 Sodium Level 150 MEQ/L Potassium Level 3.9 MEQ/L Chloride Level 110 MEQ/L Carbon Dioxide Level 29.7 MEQ/L Anion Gap 10 MEQ/L Blood Urea Nitrogen 19 MG/DL Creatinine 1.20 MG/DL Estimat Glomerular Filtration 73 ML/MIN Rate Random Glucose 75 MG/DL Calcium Level 8.0 MG/DL Imaging Last Impressions Chest X-Ray 03/02/16 0000 Signed Impressions: Service Date/Time: Wednesday, March 02, 2016 08:49 - CONCLUSION: Stable cardiomegaly and perihilar vascular congestion unchanged Dallin Lopez MD Head CT 02/24/16 0000 Signed Impressions: Service Date/Time: Wednesday, February 24, 2016 10:53 - CONCLUSION: Moderate motion artifact otherwise negative. Yunier Delgado MD FACR Assessment and Plan Problem List: (1) NICM (nonischemic cardiomyopathy) (2) Acute systolic heart failure Assessment and Plan: still diuresing on PO lasix, cr improving (3) Acute kidney injury superimposed on CKD (4) Hypertension Assessment and Plan: increased coreg. (5) NSTEMI (non-ST elevated myocardial infarction) (6) Hypoalbuminemia Assessment and Plan 1) Biventricular heart failure, NICM EF 15-20% 2) No obstructive CAD 3) Amiodarone PO. may need Lifevest on discharge vs continue amiodarone 4) Follow electrolytes and replace as necessary, free water flushes 5) Continue diuresis 6) ASA/Plavix 7) After diuresis, most likely needs JOHNATHAN-I Dr. Serra will resume care tomorrow. Joey Martin MD Mar 04, 2016 09:23
--- NOTE | 2016-03-04 09:37 | HHI.PR ---
Subjective Remarks f/u; cardiomyopathy in no acute distress although mildly tachypneic. somewhat lethargic but easily arousable. d/w the RN and no other acute issues over night. Objective Vitals Vital Signs Date Time Temp Pulse Resp B/P Pulse Ox O2 Delivery O2 Flow Rate FiO2 03/04/16 08:18 96 Nasal Cannula 3.00 03/04/16 08:00 94 03/04/16 08:00 97.9 96 20 172/92 99 03/04/16 08:00 99 Nasal Cannula 2.00 03/04/16 06:00 94 03/04/16 04:00 92 03/04/16 04:00 98.3 92 21 166/91 98 03/04/16 04:00 98 Nasal Cannula 2.00 03/04/16 02:00 87 03/04/16 00:00 98.4 82 23 159/87 99 03/04/16 00:00 99 Nasal Cannula 2.00 03/04/16 00:00 82 03/03/16 22:00 97 03/03/16 20:17 100 Nasal Cannula 3.00 03/03/16 20:00 99 Nasal Cannula 2.00 03/03/16 20:00 97.9 92 24 176/101 99 03/03/16 20:00 92 03/03/16 18:00 97 03/03/16 16:00 93 03/03/16 16:00 97.6 93 27 173/90 100 03/03/16 16:00 100 Nasal Cannula 2.00 03/03/16 14:00 89 03/03/16 12:00 97.7 87 16 155/87 100 03/03/16 12:00 100 Nasal Cannula 3.00 03/03/16 12:00 87 03/03/16 10:00 91 I/O 03/03/16 03/03/16 03/03/16 03/04/16 03/04/16 03/04/16 07:00 15:00 23:00 07:00 15:00 23:00 Intake Total 373 ml 304 ml 328 ml 308 ml Output Total 1000 ml 1350 ml 500 ml 250 ml Balance -627 ml -1046 ml -172 ml 58 ml Intake Oral 250 ml 200 ml 240 ml 240 ml IV Total 123 ml 104 ml 88 ml 68 ml Output Urine Total 1000 ml 1350 ml 500 ml 250 ml Result Diagram: 03/02/16 1040 03/03/16 1235 Imaging Last Impressions Chest X-Ray 03/02/16 0000 Signed Impressions: Service Date/Time: Wednesday, March 02, 2016 08:49 - CONCLUSION: Stable cardiomegaly and perihilar vascular congestion unchanged Dallin Lopez MD Head CT 02/24/16 0000 Signed Impressions: Service Date/Time: Wednesday, February 24, 2016 10:53 - CONCLUSION: Moderate motion artifact otherwise negative. Yunier Delgado MD FACR Objective Remarks GENERAL: in no apparent distress. CARDIOVASCULAR: Regular rate and regular rhythm without murmurs, gallops, or rubs. RESPIRATORY: Clear to auscultation. Breath sounds equal bilaterally. No wheezes , rales, or rhonchi. GASTROINTESTINAL: Abdomen soft, non-tender, nondistended. Normal, active bowel sounds MUSCULOSKELETAL: Extremities without clubbing, cyanosis, or edema. NEURO: somewhat lethargic but easily arousable Medications and IVs Current Medications Furosemide (Lasix Inj) 100 mg ONCE ONCE IV PUSH Last administered on 02/22/16 20:04; Start 02/22/16 at 19:30; Stop 02/22/16 at 19:33; Status DC Nitroglycerin (Nitroglycerin 2% Oint) 1 inch ONCE ONCE TOPICAL Last administered on 02/22/16 20:04; Start 02/22/16 at 19:30; Stop 02/22/16 at 19:33; Status DC Clopidogrel Bisulfate (Plavix) 300 mg ONCE ONCE PO Last administered on 20:04; Start 02/22/16 at 19:30; Stop 02/22/16 at 19:33; Status DC Enoxaparin Sodium (Lovenox Inj) 100 mg ONCE ONCE SQ Last administered on 20:04; Start 02/22/16 at 19:30; Stop 02/22/16 at 19:33; Status DC Aspirin 81 mg 81 mg ONCE ONCE CHEW Last administered on 02/22/16 20:02; Start 02/22/16 at 19:30; Stop 02/22/16 at 19:33; Status DC Sodium Chloride (NS 1000 ml Inj) 1,000 ml @ 100 mls/hr Q10H IV Last administered on 02/22/16 22:41; Start 02/22/16 at 21:00; Stop 02/28/16 at 09:29; Status DC IV Flush (NS Flush) 2 ml UNSCH PRN FLUSH FLUSH AFTER USING IV ACCESS; Start 02/22/16 at 20:15; Stop 02/23/16 at 17:04; Status DC IV Flush (NS Flush) 2 ml BID FLUSH Last administered on 02/22/16 22:41; Start 02/22/16 at 21:00; Stop 02/23/16 at 17:04; Status DC Acetaminophen (Tylenol) 650 mg Q4H PRN PO TEMP > 100.4; Start 02/22/16 at 20:15 Ondansetron HCl (Zofran Inj) 4 mg Q6H PRN IVP NAUSEA OR VOMITING; Start at 20:15 Prochlorperazine (Compazine Supp) 25 mg Q12H PRN AR NAUSEA OR VOMITING; Start 02/22/16 at 20:15 Bisacodyl (Dulcolax Supp) 10 mg DAILY PRN [place] CONSTIPATION Last administered on 02/29/16 06:31; Start 02/22/16 at 20:15 Magnesium Hydroxide (Milk Of Magnesia Liq) 30 ml Q12H PRN PO CONSTIPATION; Start 02/22/16 at 20:15 Sennosides (Senokot) 17.2 mg Q12H PRN PO CONSTIPATION Last administered on 02/27 17:53; Start 02/22/16 at 20:15 Temazepam (Restoril) 15 mg HS PRN PO INSOMNIA Last administered on 03/01/16 01 :30; Start 02/22/16 at 20:15 Enoxaparin Sodium (Lovenox Inj) 40 mg Q24H SQ ; Start 02/22/16 at 21:00; Stop 02/23/16 at 10:31; Status DC Furosemide (Lasix Inj) 40 mg BID@,18 IV PUSH Last administered on 02/23/16 16 :52; Start 02/23/16 at 09:00; Stop 02/23/16 at 17:03; Status DC Potassium Chloride (KCl) 20 meq Q12HR PO Last administered on 02/25/16 22:01; Start 02/22/16 at 21:00; Stop 02/26/16 at 10:04; Status DC Potassium Chloride (KCl) 30 meq ONCE ONCE PO Last administered on 02/22/16 23: 55; Start 02/22/16 at 20:15; Stop 02/22/16 at 20:54; Status DC Lisinopril (Prinivil) 2.5 mg DAILY PO ; Start 02/23/16 at 09:00; Stop 02/23/16 at 09:00; Status DC Metoprolol Tartrate (Lopressor) 12.5 mg Q12HR PO Last administered on 02/24/16 09:39; Start 02/23/16 at 09:00; Stop 02/24/16 at 10:02; Status DC Aspirin (Aspirin Chew) 81 mg DAILY CHEW Last administered on 03/04/16 09:05; Start 02/23/16 at 09:00 Albuterol/ Ipratropium (Duoneb Neb) 1 ampule Q4HR NEB PRN NEB SHORTNESS OF BREATH Last administered on 02/23/16 23:01; Start 02/23/16 at 07:30; Stop at 09:29; Status DC Clopidogrel Bisulfate (Plavix) 75 mg DAILY PO Last administered on 03/04/16 09 :05; Start 02/23/16 at 09:00 Atorvastatin Calcium 80 mg 80 mg HS PO Last administered on 03/03/16 20:13; Start 02/23/16 at 21:00 Heparin Sodium/ Sodium Chloride (Heparin-NS/Pf Inj) 500 ml @ As Directed STK- MED ONCE .ROUTE Last administered on 02/23/16 08:56; Start 02/23/16 at 08:56; Stop 02/23/16 at 09:08; Status DC Midazolam HCl (Versed Inj) 2 mg STK-MED ONCE .ROUTE Last administered on 09:07; Start 02/23/16 at 09:07; Stop 02/23/16 at 09:11; Status DC Fentanyl Citrate (fentaNYL INJ) 100 mcg STK-MED ONCE .ROUTE ; Start 02/23/16 at 09:07; Stop 02/23/16 at 09:11; Status DC Hydralazine HCl (Apresoline Inj) 20 mg STK-MED ONCE .ROUTE Last administered on 02/23/16 10:01; Start 02/23/16 at 10:01; Stop 02/23/16 at 10:03; Status DC Hydralazine HCl (Apresoline Inj) 20 mg STK-MED ONCE .ROUTE Last administered on 02/23/16 10:17; Start 02/23/16 at 10:17; Stop 02/23/16 at 10:18; Status DC IV Flush (NS Flush) 2 ml BID IVF Last administered on 03/04/16 09:00; Start at 21:00 IV Flush (NS Flush) 2 ml UNSCH PRN IVF FLUSH AFTER USING IV ACCESS Last administered on 02/27/16 04:49; Start 02/23/16 at 10:30 Miscellaneous Information 1 ONCE ONCE XX ; Start 02/23/16 at 10:30; Stop at 10:31; Status DC Labetalol HCl (Trandate Inj) 100 mg STK-MED ONCE .ROUTE Last administered on 10:28; Start 02/23/16 at 10:28; Stop 02/23/16 at 10:29; Status DC Iohexol (OMNIPAQUE 350 INJ (Biology Department Chair)) 100 ml STK-MED ONCE OTHER ; Start at 10:00; Stop 02/23/16 at 11:19; Status DC Miscellaneous Information Patient in critical care unit? Ass... Q361D XX Last administered on 02/23/16 16:45; Start 02/23/16 at 16:45 Chlorhexidine Gluconate (Chlorhexidine 2% Cloth) 3 pack DAILY@04 TOP Last administered on 02/26/16 05:55; Start 02/24/16 at 04:00; Stop 02/28/16 at 04:01; Status DC Chlorhexidine Gluconate (Chlorhexidine 2% Cloth) 3 pack UNSCH PRN TOP HYGIENIC CARE; Start 02/23/16 at 16:45; Stop 02/28/16 at 16:40; Status DC Furosemide (Lasix Inj) 40 mg Q8H IV PUSH Last administered on 02/28/16 08:19; Start 02/23/16 at 17:00; Stop 02/28/16 at 09:29; Status DC Heparin Sodium (Porcine) (Heparin Inj) 5,000 units Q12HR SQ Last administered on 03/04/16 09:00; Start 02/23/16 at 21:00 Lorazepam (Ativan Inj) 1 mg Q4H PRN IV PUSH AGITATION Last administered on 08:23; Start 02/24/16 at 03:15; Stop 02/25/16 at 14:22; Status DC Haloperidol Lactate (Haldol Inj) 2 mg Q6H PRN IM agitation Last administered on 03/03/16 02:13; Start 02/24/16 at 08:45 Mupirocin (Bactroban Nasal 2% Oint) 1 applic BID EACH NARE Last administered on 03/01/16 19:40; Start 02/24/16 at 09:00; Stop 03/02/16 at 08:59; Status DC Carvedilol (Coreg) 3.125 mg Q12HR PO Last administered on 02/26/16 09:03; Start 02/24/16 at 21:00; Status Hold Naloxone HCl 0.4 mg 0.4 mg UNSCH PRN IV SEE LABEL COMMENTS Last administered on 02/24/16 12:16; Start 02/24/16 at 11:30 Potassium Chloride 100 ml @ 50 mls/hr Q2H IV Last administered on 02/24/16 17: 49; Start 02/24/16 at 16:00; Stop 02/24/16 at 19:59; Status DC Potassium Chloride (KCl 20 Meq Premix Inj) 100 ml @ As Directed STK-MED ONCE .ROUTE ; Start 02/24/16 at 15:38; Stop 02/24/16 at 15:39; Status DC Hydralazine HCl (Apresoline Inj) 10 mg Q4H PRN IV PUSH SBP>160, DBP>90 Last administered on 03/03/16 20:13; Start 02/24/16 at 21:45 Labetalol HCl 20 mg 20 mg ONCE ONCE IV PUSH Last administered on 02/25/16 04: 28; Start 02/24/16 at 23:00; Stop 02/24/16 at 23:01; Status DC Amiodarone HCl 150 mg/Dextrose 100 ml @ 600 mls/hr NOW ONCE IV Last administered on 02/25/16 04:30; Start 02/25/16 at 03:00; Stop 02/25/16 at 03:09; Status DC Amiodarone HCl 450 mg/Dextrose 250 ml @ 0 mls/hr CONTINUOUS IV Last administered on 02/26/16 17:22; Start 02/25/16 at 03:00; Stop 02/27/16 at 09:42; Status DC Dexmedetomidine HCl (Precedex Inj) 50 ml @ 0 mls/hr TITRATE IV Last administered on 02/28/16 20:35; Start 02/25/16 at 08:45; Stop 02/28/16 at 22:30 ; Status DC Labetalol HCl (Trandate Inj) 10 mg Q2H PRN IVS SBP greater than 150mm Hg Last administered on 03/03/16 22:44; Start 02/25/16 at 08:45 Metoprolol Tartrate 2.5 mg 2.5 mg Q6H IV PUSH ; Start 02/25/16 at 14:00; Stop 02/26/16 at 08:54; Status DC Potassium Chloride (KCl 20 Meq Premix Inj) 100 ml @ 50 mls/hr Q12H IV Last administered on 03/02/16 21:17; Start 02/26/16 at 10:00; Stop 03/03/16 at 08:44 ; Status DC Amiodarone HCl 200 mg 200 mg Q12HR PO Last administered on 03/04/16 09:06; Start 02/27/16 at 09:45 Dextrose (D5W 1000 ml Inj) 1,000 ml @ 50 mls/hr Q20H IV Last administered on 10:22; Start 02/28/16 at 10:00; Stop 02/28/16 at 13:37; Status DC Albuterol/ Ipratropium (Duoneb Neb) 1 ampule Q4HR NEB NEB Last administered on 03/03/16 11:28; Start 02/28/16 at 12:00; Stop 03/03/16 at 12:00; Status DC Furosemide (Lasix Inj) 40 mg Q12H IV PUSH Last administered on 02/28/16 20:17 ; Start 02/28/16 at 21:00; Stop 02/29/16 at 08:33; Status DC Water (Free Water) 250 ml Q8HR G-TUBE Last administered on 02/29/16 06:00; Start 02/28/16 at 11:00; Stop 02/29/16 at 08:33; Status DC Albuterol/ Ipratropium 1 ampule 1 ampule Q2HR NEB PRN NEB SHORTNESS OF BREATH; Start 02/28/16 at 09:15 Dexmedetomidine HCl/Sodium Chloride (Precedex Inj/NS 250 ml Inj) 250 ml @ 0 mls/ hr TITRATE IV Last administered on 03/01/16 00:07; Start 02/28/16 at 22:30; Stop 03/03/16 at 13:25; Status DC Water (Free Water) VOLUME OF WATER: ( 250 ) ML Q6HR G-TUBE Last administered on 03/04/16 00:00; Start 02/29/16 at 12:00 Furosemide (Lasix Inj) 20 mg Q12H IV PUSH Last administered on 03/03/16 08:43 ; Start 02/29/16 at 09:00; Stop 03/03/16 at 09:36; Status DC Lorazepam (Ativan Inj) 2 mg Q4H PRN IV PUSH agitation Last administered on 03/02 00:00; Start 03/01/16 at 08:45; Stop 03/02/16 at 08:48; Status DC Furosemide (Lasix Inj) 60 mg NOW ONCE IV PUSH Last administered on 03/01/16 23:05; Start 03/01/16 at 22:47; Stop 03/01/16 at 22:48; Status DC Lorazepam (Ativan Inj) 1 mg Q4H PRN IV PUSH agitation Last administered on 03/04 02:25; Start 03/02/16 at 13:00 Furosemide (Lasix) 40 mg DAILY PO Last administered on 03/04/16 09:05; Start 03/04/16 at 09:00 A/P Assessment and Plan A/P -Acute respiratory failure requiring BiPAP- now stable on N/C- will keep on oxygen to keep O2 sat > 90%.continue neb treatment. -NSTEMI with Acute decompensated biventricular heart failure/ nonischemic cardiomyopathy s/p cardiac cath with normal coronaries-echo with EF 15% continue aspirin, plavix, statin and amiodarone and diuretics- will consider adding JOHNATHAN-I. may need life vest upon discharge.cardiology following. -Encephalopathy-likely metabolic- continue with neuro-checks- on ativan and haldol- restraints as needed- evaluated by neurology EEG with moderate to severe encephalopathy -chronic renal insufficiency/hypernatremia- will try free water - will monitor- BMP in am -DVT prophylaxis with subq heparin -continue PT/ evaluated by ST ; recommended puree diet. will monitor in ICU today. d/w the RN. Hardeep Richardson MD Mar 04, 2016 09:37
[2016-03-04 14:18] LABS: AUTOMATED NEUTROPHIL # 12.6 TH/MM3 (1.8-7.7); BASOPHIL % 0.3 % (0.0-2.0); EOSINOPHIL # 0.1 TH/MM3 (0-0.4); EOSINOPHIL % 0.5 % (0.0-4.0); HEMATOCRIT 41.6 % (39.0-51.0); HEMO FLAGS DIFF FINAL; LYMPH % 5.1 % (9.0-44.0); LYMPHOCYTE # 0.7 TH/MM3 (1.0-4.8); MEAN CELL VOLUME 92.5 FL (80.0-100.0); MEAN CORPUSCULAR HEMOGLOBIN 30.4 PG (27.0-34.0); MEAN CORPUSCULAR HGB CONC 32.8 % (32.0-36.0); MONO % 4.4 % (0.0-8.0); NEUT % 89.7 % (16.0-70.0); PLATELET COUNT 242 TH/MM3 (150-450); RED CELL DISTRIBUTION WIDTH 16.1 % (11.6-17.2)
[2016-03-04 14:34] LABS: BICARBONATE 32.1 MEQ/L (21.0-32.0); POTASSIUM 3.3 MEQ/L (3.5-5.1)
[2016-03-04] MEDS: CARVEDILOL 6.25 MG TAB PO SCH (20:19)
[2016-03-04] MEDS: ATORVASTATIN 80 MG TAB PO SCH (20:19)
[2016-03-05] VITALS (14 sets, daily range): BP systolic 144–166; BP diastolic 77–92; PULSE 69–96; RESP 17–24; TEMP 97.1–98; O2SAT 96–100
[2016-03-05] MEDS: FREE WATER G-TUBE SCH ×3 (05:52→18:00)
[2016-03-05 06:15] LABS: AUTOMATED NEUTROPHIL # 11.4 TH/MM3 (1.8-7.7); BASOPHIL % 0.2 % (0.0-2.0); EOSINOPHIL # 0.1 TH/MM3 (0-0.4); EOSINOPHIL % 0.6 % (0.0-4.0); HEMATOCRIT 39.5 % (39.0-51.0); HEMO FLAGS DIFF FINAL; LYMPH % 6.4 % (9.0-44.0); LYMPHOCYTE # 0.8 TH/MM3 (1.0-4.8); MEAN CELL VOLUME 92.6 FL (80.0-100.0); MEAN CORPUSCULAR HEMOGLOBIN 30.9 PG (27.0-34.0); MEAN CORPUSCULAR HGB CONC 33.4 % (32.0-36.0); MONO % 4.5 % (0.0-8.0); NEUT % 88.3 % (16.0-70.0); PLATELET COUNT 245 TH/MM3 (150-450); RED BLOOD COUNT 4.27 MIL/MM3 (4.50-5.90); RED CELL DISTRIBUTION WIDTH 16.1 % (11.6-17.2); WHITE BLOOD COUNT 12.9 TH/MM3 (4.0-11.0)
[2016-03-05 06:27] LABS: BICARBONATE 26.5 MEQ/L (21.0-32.0); POTASSIUM 4.1 MEQ/L (3.5-5.1)
[2016-03-05] MEDS: ASPIRIN 81 MG CHEW TAB CHEW SCH (08:24)
[2016-03-05] MEDS: CLOPIDOGREL 75 MG TAB PO SCH (08:25)
[2016-03-05] MEDS: FUROSEMIDE 40 MG TAB PO SCH (08:25)
[2016-03-05] MEDS: CARVEDILOL 6.25 MG TAB PO SCH ×2 (08:25→19:55)
[2016-03-05] MEDS: AMIODARONE 200 MG TAB PO SCH ×2 (08:25→19:55)
[2016-03-05] MEDS: HEPARIN SODIUM - SQ 10,000 UNITS/ML VIAL SQ SCH ×2 (08:25→19:55)
[2016-03-05] MEDS: SODIUM CHLORIDE 0.9% FLUSH 5 ML FLUSH IVF SCH ×2 (09:00→19:55)
--- NOTE | 2016-03-05 12:10 | HHI.PR ---
Subjective Remarks Follow-up heart failure. Denies shortness of breath. He appears weak. He speaks with a very soft voice and following simple commands. Tolerating 3 L nasal cannula. Did not require BiPAP last night. Discussed with RN. Also discussed with case management who reported parishioners wants to have an update regarding patient [phone] Objective Vitals Vital Signs Date Time Temp Pulse Resp B/P Pulse Ox O2 Delivery O2 Flow Rate FiO2 03/05/16 10:33 96 Nasal Cannula 3.00 03/05/16 10:00 96 03/05/16 08:00 97.8 81 17 159/90 100 03/05/16 08:00 100 Nasal Cannula 2.00 Humidified 03/05/16 08:00 96 03/05/16 06:00 84 03/05/16 04:00 97.1 81 17 159/86 100 03/05/16 04:00 81 03/05/16 04:00 100 Nasal Cannula 2.00 Humidified 03/05/16 02:00 79 03/05/16 00:00 100 Nasal Cannula 2.00 Humidified 03/05/16 00:00 97.5 75 22 151/92 100 03/05/16 00:00 75 03/04/16 22:00 90 03/04/16 20:09 100 Nasal Cannula 2.00 03/04/16 20:00 97.5 96 28 170/91 100 03/04/16 20:00 100 Nasal Cannula 2.00 Humidified 03/04/16 20:00 96 03/04/16 18:00 94 03/04/16 16:00 99 Nasal Cannula 2.00 03/04/16 16:00 94 03/04/16 16:00 98.3 96 20 164/94 99 03/04/16 14:00 94 I/O 03/04/16 03/04/16 03/04/16 03/05/16 03/05/16 03/05/16 07:00 15:00 23:00 07:00 15:00 23:00 Intake Total 308 ml 460 ml 250 ml 200 ml Output Total 250 ml 450 ml 300 ml 175 ml Balance 58 ml 10 ml -50 ml 25 ml Intake Oral 240 ml 380 ml 250 ml 200 ml IV Total 68 ml 80 ml 0 ml 0 ml Output Urine Total 250 ml 450 ml 300 ml 175 ml # Bowel Movements 0 0 Result Diagram: 03/05/1652603/05/16526 Objective Remarks GENERAL: in no apparent distress. CARDIOVASCULAR: Regular rate and regular rhythm without murmurs, gallops, or rubs. RESPIRATORY: Decreased Breath sounds equal bilaterally. Left base crackles GASTROINTESTINAL: Abdomen soft, non-tender, nondistended. Normal, active bowel sounds MUSCULOSKELETAL: Extremities without clubbing, cyanosis but with edema. NEURO: Appears weak but following commands appropriately. Moving all extremities Procedures Cardiac catheterization A/P Problem List: (1) CHF (congestive heart failure) ICD Code: I50.9 Status: Acute (2) Acute systolic heart failure ICD Code: I50.21 Status: Acute Assessment and Plan -Acute respiratory failure requiring BiPAP- now stable on N/C- will keep on oxygen to keep O2 sat > 90%.continue neb treatment. -NSTEMI with Acute decompensated biventricular heart failure/ nonischemic cardiomyopathy s/p cardiac cath with normal coronaries-echo with EF 15% continue aspirin, plavix, amiodarone, Coreg and diuretics- will consider adding JOHNATHAN-I. may need life vest upon discharge.cardiology following. -Encephalopathy-likely metabolic- continue with neuro-checks- on ativan and haldol- restraints as needed- evaluated by neurology EEG with moderate to severe encephalopathy -Likely chronic kidney disease stage 2-3/hypernatremia-creatinine slightly up. Avoid nephrotoxins. We will hold adding JOHNATHAN inhibitor today. -DVT prophylaxis with subq heparin -continue PT/ evaluated by ST ; recommended puree diet. Discharge Planning Stable for transfer to floor. Will discuss with cardiology if patient stable for discharge back to halfway Problem Qualifiers (1) CHF (congestive heart failure): Qualified Code: I50.9 - Congestive heart failure, unspecified congestive heart failure chronicity, unspecified congestive heart failure type Johnson Robles MD Mar 05, 2016 12:10
[2016-03-05] MEDS ORDERED: AMIO200T PO (12:14)
[2016-03-05] MEDS ORDERED: ASPI81TA11 PO (12:14)
[2016-03-05] MEDS ORDERED: LIPI80TA PO (12:14)
[2016-03-05] MEDS ORDERED: CARV6.25 PO (12:14)
[2016-03-05] MEDS ORDERED: FURO1TAB60 PO (12:14)
[2016-03-05] MEDS ORDERED: PLAV75TA29 PO (12:14)
--- NOTE | 2016-03-05 12:14 | HHI.DCPOC ---
Discharge Care Plan Diagnosis: (1) CHF (congestive heart failure) (2) Acute systolic heart failure Your Health Problems Are: Difficulty with ADL Exercise Tolerance Shortness of Breath Goals to Promote Your Health * To prevent worsening of your condition and complications * To maintain your health at the optimal level Directions to Meet Your Goals Take your medications as prescribed Follow your dietary instruction Follow activity as directed Keep your appointments as scheduled Take your immunizations and boosters as scheduled If your symptoms worsen call your PCP, if no PCP go to Urgent Care Center or Emergency Room Smoking is Dangerous to Your Health. Avoid second hand smoke Call the 24-hour hour crisis hotline for domestic abuse at Johnson Robles MD Mar 05, 2016 12:14
--- NOTE | 2016-03-05 13:06 | PD.CARD.PN ---
Subjective Subjective Remarks Up and eating but still lethargic, no chest pain, no shortness of breath Objective Medications Current Medications Medications (Trade) Dose Ordered Sig/Rogelio Route Start Time Stop Time Status Last Admin (Tylenol) 650 mg Q4H PRN PO 02/22/16 20:15 (Zofran Inj) 4 mg Q6H PRN IVP 02/22/16 20:15 (Compazine Supp) 25 mg Q12H PRN [place] 02/22/16 20:15 (Dulcolax Supp) 10 mg DAILY PRN [place] 02/22/16 20:15 02/29/16 06:31 (Milk Of Magncomfort Liq) 30 ml Q12H PRN PO 02/22/16 20:15 (Senokot) 17.2 mg Q12H PRN PO 02/22/16 20:15 02/28/16 17:53 (Restoril) 15 mg HS PRN PO 02/22/16 20:15 03/01/16 01:30 (Aspirin Chew) 81 mg DAILY CHEW 02/23/16 09:00 03/05/16 08:24 (Plavix) 75 mg DAILY PO 02/23/16 09:00 03/05/16 08:25 (Lipitor) 80 mg HS PO 02/23/16 21:00 03/04/16 20:19 (NS Flush) 2 ml BID IVF 02/23/16 21:00 03/04/16 20:19 (NS Flush) 2 ml UNSCH PRN IVF 02/23/16 10:30 02/27/16 04:49 Miscellaneous Information Patient in critical care unit? Ass... Q361D XX 02/23/16 16:45 02/23/16 16:45 (Heparin Inj) 5,000 units Q12HR SQ 02/23/16 21:00 03/05/16 08:25 (Haldol Inj) 2 mg Q6H PRN IM 02/24/16 08:45 03/03/16 02:13 (Narcan Inj) 0.4 mg UNSCH PRN IV 02/24/16 11:30 02/24/16 12:16 (Apresoline Inj) 10 mg Q4H PRN IV PUSH 02/24/16 21:45 03/03/16 20:13 (Trandate Inj) 10 mg Q2H PRN IVS 1/8/17 08:45 03/03/16 22:44 (Cordarone) 200 mg Q12HR PO 02/27/16 09:45 03/05/16 08:25 (Free Water) VOLUME OF WATER: ( 250 ) ML Q6HR G-TUBE 02/29/16 12:00 03/05/16 08:25 (Ativan Inj) 1 mg Q4H PRN IV PUSH 03/02/16 13:00 03/04/16 02:25 (Lasix) 40 mg DAILY PO 03/04/16 09:00 03/05/16 08:25 (Coreg) 6.25 mg Q12HR PO 03/04/16 21:00 03/05/16 08:25 Vital Signs / I&O Vital Signs Date Time Temp Pulse Resp B/P Pulse Ox O2 Delivery O2 Flow Rate FiO2 03/05/16 12:00 99 Nasal Cannula 2.00 03/05/16 12:00 96 03/05/16 10:33 96 Nasal Cannula 3.00 03/05/16 10:00 96 03/05/16 08:00 97.8 81 17 159/90 100 03/05/16 08:00 100 Nasal Cannula 2.00 Humidified 03/05/16 08:00 96 03/05/16 06:00 84 03/05/16 04:00 97.1 81 17 159/86 100 03/05/16 04:00 81 03/05/16 04:00 100 Nasal Cannula 2.00 Humidified 03/05/16 02:00 79 03/05/16 00:00 100 Nasal Cannula 2.00 Humidified 03/05/16 00:00 97.5 75 22 151/92 100 03/05/16 00:00 75 03/04/16 22:00 90 03/04/16 20:09 100 Nasal Cannula 2.00 03/04/16 20:00 97.5 96 28 170/91 100 03/04/16 20:00 100 Nasal Cannula 2.00 Humidified 03/04/16 20:00 96 03/04/16 18:00 94 03/04/16 16:00 99 Nasal Cannula 2.00 03/04/16 16:00 94 03/04/16 16:00 98.3 96 20 164/94 99 03/04/16 14:00 94 I/O 03/04/16 03/04/16 03/04/16 03/05/16 03/05/16 03/05/16 07:00 15:00 23:00 07:00 15:00 23:00 Intake Total 308 ml 460 ml 250 ml 200 ml Output Total 250 ml 450 ml 300 ml 175 ml Balance 58 ml 10 ml -50 ml 25 ml Intake Oral 240 ml 380 ml 250 ml 200 ml IV Total 68 ml 80 ml 0 ml 0 ml Output Urine Total 250 ml 450 ml 300 ml 175 ml # Bowel Movements 0 0 Physical Exam GENERAL: Awake and alert SKIN: Warm and dry. HEAD: Atraumatic. Normocephalic. EYES: Pupils equal and round. No scleral icterus. No injection or drainage. ENT: No nasal bleeding or discharge. Mucous membranes pink and moist. NECK: Trachea midline. Mild JVD CARDIOVASCULAR: Regular rhythm. RESPIRATORY: Decreased breath sounds bilaterally GASTROINTESTINAL: Abdomen soft, non-tender, nondistended. Hepatic and splenic margins not palpable. MUSCULOSKELETAL: Anasarca NEUROLOGICAL: No obvious cranial nerve deficits. Motor grossly within normal limits. PSYCHIATRIC: Unable to obtain Laboratory Laboratory Tests Test 03/04/16 03/05/16 14:03 05:27 White Blood Count 14.0 TH/MM3 12.9 TH/MM3 Red Blood Count 4.50 MIL/MM3 4.27 MIL/MM3 Hemoglobin 13.7 GM/DL 13.2 GM/DL Hematocrit 41.6 % 39.5 % Mean Corpuscular Volume 92.5 FL 92.6 FL Mean Corpuscular Hemoglobin 30.4 PG 30.9 PG Mean Corpuscular Hemoglobin 32.8 % 33.4 % Concent Red Cell Distribution Width 16.1 % 16.1 % Platelet Count 242 TH/MM3 245 TH/MM3 Mean Platelet Volume 9.0 FL 9.2 FL Neutrophils (%) (Auto) 89.7 % 88.3 % Lymphocytes (%) (Auto) 5.1 % 6.4 % Monocytes (%) (Auto) 4.4 % 4.5 % Eosinophils (%) (Auto) 0.5 % 0.6 % Basophils (%) (Auto) 0.3 % 0.2 % Neutrophils # (Auto) 12.6 TH/MM3 11.4 TH/MM3 Lymphocytes # (Auto) 0.7 TH/MM3 0.8 TH/MM3 Monocytes # (Auto) 0.6 TH/MM3 0.6 TH/MM3 Eosinophils # (Auto) 0.1 TH/MM3 0.1 TH/MM3 Basophils # (Auto) 0.0 TH/MM3 0.0 TH/MM3 CBC Comment DIFF FINAL DIFF FINAL Differential Comment Sodium Level 146 MEQ/L 144 MEQ/L Potassium Level 3.3 MEQ/L 4.1 MEQ/L Chloride Level 107 MEQ/L 111 MEQ/L Carbon Dioxide Level 32.1 MEQ/L 26.5 MEQ/L Anion Gap 7 MEQ/L 7 MEQ/L Blood Urea Nitrogen 23 MG/DL 29 MG/DL Creatinine 1.27 MG/DL 1.42 MG/DL Estimat Glomerular Filtration 68 ML/MIN 60 ML/MIN Rate Random Glucose 98 MG/DL 91 MG/DL Calcium Level 8.4 MG/DL 8.5 MG/DL Assessment and Plan Problem List: (1) NICM (nonischemic cardiomyopathy) (2) Acute systolic heart failure (3) Acute kidney injury superimposed on CKD (4) Hypertension (5) NSTEMI (non-ST elevated myocardial infarction) (6) Hypoalbuminemia Assessment and Plan 1) Biventricular heart failure, NICM EF 15-20% 2) No obstructive CAD 3) Amiodarone PO, no further NSVT... may need Lifevest on discharge, if unable, then will continue amiodarone 4) Follow electrolytes and replace as necessary, free water flushes 5) Continue Lasix PO 6) ASA/Plavix 7) After diuresis, most likely needs JOHNATHAN-I 8) Hypoalbuminemia leading to anasarca 9) Would keep in the ICU for one more night, but if a need for beds can be transferred. Danilo Serra DO Mar 05, 2016 13:06
[2016-03-05] MEDS: ATORVASTATIN 80 MG TAB PO SCH (19:55)
[2016-03-05] MEDS: hydrALAZINE HCL 20 MG/ML VIAL IV PUSH PRN (20:00)
[2016-03-05] MEDS: SODIUM CHLORIDE 0.9% FLUSH 5 ML FLUSH IVF PRN (20:01)
[2016-03-06] VITALS (12 sets, daily range): BP systolic 129–158; BP diastolic 63–84; PULSE 61–76; RESP 14–23; TEMP 96.7–97.8; O2SAT 96–100
[2016-03-06] MEDS: FREE WATER G-TUBE SCH ×4 (06:00→18:00)
[2016-03-06 06:09] LABS: BICARBONATE 31.3 MEQ/L (21.0-32.0); MAGNESIUM 2.4 MG/DL (1.5-2.5); POTASSIUM 3.6 MEQ/L (3.5-5.1)
[2016-03-06] MEDS: hydrALAZINE HCL 20 MG/ML VIAL IV PUSH PRN (06:17)
[2016-03-06] MEDS: SODIUM CHLORIDE 0.9% FLUSH 5 ML FLUSH IVF PRN (06:17)
[2016-03-06] MEDS: AMIODARONE 200 MG TAB PO SCH ×2 (08:33→20:05)
[2016-03-06] MEDS: ASPIRIN 81 MG CHEW TAB CHEW SCH (08:34)
[2016-03-06] MEDS: FUROSEMIDE 40 MG TAB PO SCH (08:34)
[2016-03-06] MEDS: CLOPIDOGREL 75 MG TAB PO SCH (08:34)
[2016-03-06] MEDS: HEPARIN SODIUM - SQ 10,000 UNITS/ML VIAL SQ SCH ×2 (08:35→20:05)
[2016-03-06] MEDS: CARVEDILOL 6.25 MG TAB PO SCH ×2 (08:36→20:05)
[2016-03-06] MEDS: SODIUM CHLORIDE 0.9% FLUSH 5 ML FLUSH IVF SCH ×2 (09:00→20:06)
--- NOTE | 2016-03-06 09:32 | PD.CARD.PN ---
Subjective Subjective Remarks Appears weak, no chest pain, no shortness of breath Objective Medications Current Medications Medications (Trade) Dose Ordered Sig/Rogelio Route Start Time Stop Time Status Last Admin (Tylenol) 650 mg Q4H PRN PO 02/22/16 20:15 (Zofran Inj) 4 mg Q6H PRN IVP 02/22/16 20:15 (Compazine Supp) 25 mg Q12H PRN [place] 02/22/16 20:15 (Dulcolax Supp) 10 mg DAILY PRN [place] 02/22/16 20:15 02/29/16 06:31 (Milk Of Magnesia Liq) 30 ml Q12H PRN PO 02/22/16 20:15 (Senokot) 17.2 mg Q12H PRN PO 02/22/16 20:15 02/28/16 17:53 (Restoril) 15 mg HS PRN PO 02/22/16 20:15 03/01/16 01:30 (Aspirin Chew) 81 mg DAILY CHEW 02/23/16 09:00 03/06/16 08:34 (Plavix) 75 mg DAILY PO 02/23/16 09:00 03/06/16 08:34 (Lipitor) 80 mg HS PO 02/23/16 21:00 03/05/16 19:55 (NS Flush) 2 ml BID IVF 02/23/16 21:00 03/05/16 19:55 (NS Flush) 2 ml UNSCH PRN IVF 02/23/16 10:30 03/06/16 06:17 Miscellaneous Information Patient in critical care unit? Ass... Q361D XX 02/23/16 16:45 02/23/16 16:45 (Heparin Inj) 5,000 units Q12HR SQ 02/23/16 21:00 03/06/16 08:35 (Haldol Inj) 2 mg Q6H PRN IM 02/24/16 08:45 03/03/16 02:13 (Narcan Inj) 0.4 mg UNSCH PRN IV 02/24/16 11:30 02/24/16 12:16 (Apresoline Inj) 10 mg Q4H PRN IV PUSH 02/24/16 21:45 03/06/16 06:17 (Trandate Inj) 10 mg Q2H PRN IVS 02/25/16 08:45 03/03/16 22:44 (Cordarone) 200 mg Q12HR PO 02/27/16 09:45 03/06/16 08:33 (Free Water) VOLUME OF WATER: ( 250 ) ML Q6HR G-TUBE 02/29/16 12:00 03/06/16 06:00 (Ativan Inj) 1 mg Q4H PRN IV PUSH 03/02/16 13:00 03/04/16 02:25 (Lasix) 40 mg DAILY PO 03/04/16 09:00 03/06/16 08:34 (Coreg) 6.25 mg Q12HR PO 03/04/16 21:00 03/06/16 08:36 Vital Signs / I&O Vital Signs Date Time Temp Pulse Resp B/P Pulse Ox O2 Delivery O2 Flow Rate FiO2 03/06/16 08:00 97.4 76 20 154/84 98 03/06/16 06:00 76 03/06/16 04:00 97.8 73 14 158/82 100 03/06/16 04:00 100 Nasal Cannula 2.00 Humidified 03/06/16 04:00 73 03/06/16 02:00 70 03/06/16 00:00 71 03/06/16 00:00 97.7 71 15 147/78 99 03/06/16 00:00 99 Nasal Cannula 2.00 Humidified 03/05/16 22:00 69 03/05/16 20:41 98 Nasal Cannula 2.00 03/05/16 20:00 79 03/05/16 20:00 97.6 79 24 166/92 100 03/05/16 20:00 100 Nasal Cannula 2.00 Humidified 03/05/16 18:00 96 03/05/16 16:00 99 Nasal Cannula 2.00 03/05/16 16:00 96 03/05/16 16:00 97.8 81 17 144/77 100 03/05/16 14:00 96 03/05/16 12:00 99 Nasal Cannula 2.00 03/05/16 12:00 96 03/05/16 12:00 98.0 81 17 144/77 100 03/05/16 10:33 96 Nasal Cannula 3.00 03/05/16 10:00 96 I/O 1/17/17 1/17/17 03/05/16 03/06/16 03/06/16 03/06/16 07:00 15:00 23:00 07:00 15:00 23:00 Intake Total 200 ml 380 ml 250 ml 125 ml Output Total 175 ml 325 ml 150 ml 350 ml Balance 25 ml 55 ml 100 ml -225 ml Intake Oral 200 ml 380 ml 250 ml 125 ml IV Total 0 ml 0 ml 0 ml Output Urine Total 175 ml 325 ml 150 ml 350 ml # Bowel Movements 0 1 0 0 Physical Exam GENERAL: Awake and alert SKIN: Warm and dry. HEAD: Atraumatic. Normocephalic. EYES: Pupils equal and round. No scleral icterus. No injection or drainage. ENT: No nasal bleeding or discharge. Mucous membranes pink and moist. NECK: Trachea midline. Mild JVD CARDIOVASCULAR: Regular rhythm. RESPIRATORY: Decreased breath sounds bilaterally, more clear than yesterday GASTROINTESTINAL: Abdomen soft, non-tender, nondistended. Hepatic and splenic margins not palpable. MUSCULOSKELETAL: Anasarca NEUROLOGICAL: No obvious cranial nerve deficits. Motor grossly within normal limits. PSYCHIATRIC: Unable to obtain Laboratory Laboratory Tests Test 03/06/16 04:49 Sodium Level 148 MEQ/L Potassium Level 3.6 MEQ/L Chloride Level 110 MEQ/L Carbon Dioxide Level 31.3 MEQ/L Anion Gap 7 MEQ/L Blood Urea Nitrogen 36 MG/DL Creatinine 1.55 MG/DL Estimat Glomerular Filtration 54 ML/MIN Rate Random Glucose 89 MG/DL Calcium Level 8.4 MG/DL Magnesium Level 2.4 MG/DL Assessment and Plan Problem List: (1) NICM (nonischemic cardiomyopathy) (2) Acute systolic heart failure (3) Acute kidney injury superimposed on CKD (4) Hypertension (5) NSTEMI (non-ST elevated myocardial infarction) (6) Hypoalbuminemia Assessment and Plan 1) Biventricular heart failure, NICM EF 15-20% 2) No obstructive CAD 3) Amiodarone PO, no further NSVT... may need Lifevest on discharge vs consideration of EP study, if unable, then will continue amiodarone 4) Follow electrolytes and replace as necessary, free water flushes 5) Appears intravascularly dry, needs to equilibrate, will hold Lasix tomorrow 6) ASA/Plavix 7) After diuresis, most likely needs JOHNATHAN-I 8) Hypoalbuminemia leading to anasarca 9) May be transferred to telemetry floor from cardiovascular standpoint 10) [facility], he agrees not ready for transfer to [facility], maybe in the next few days Danilo Serra DO Mar 06, 2016 09:32
--- NOTE | 2016-03-06 14:16 | HHI.PR ---
Subjective Remarks F/u encephalopathy. Now awake and alert. Intermittent SOB hx CKD stage not known dw RN and CM Objective Vitals Vital Signs Date Time Temp Pulse Resp B/P Pulse Ox O2 Delivery O2 Flow Rate FiO2 03/06/16 12:00 97.6 65 16 129/63 03/06/16 10:00 68 03/06/16 08:00 76 03/06/16 08:00 97.4 76 20 154/84 98 03/06/16 08:00 98 Nasal Cannula 2.00 Humidified 03/06/16 06:00 76 03/06/16 04:00 97.8 73 14 158/82 100 03/06/16 04:00 100 Nasal Cannula 2.00 Humidified 03/06/16 04:00 73 03/06/16 02:00 70 03/06/16 00:00 71 03/06/16 00:00 97.7 71 15 147/78 99 03/06/16 00:00 99 Nasal Cannula 2.00 Humidified 03/05/16 22:00 69 03/05/16 20:41 98 Nasal Cannula 2.00 03/05/16 20:00 79 03/05/16 20:00 97.6 79 24 166/92 100 03/05/16 20:00 100 Nasal Cannula 2.00 Humidified 03/05/16 18:00 96 03/05/16 16:00 99 Nasal Cannula 2.00 03/05/16 16:00 96 03/05/16 16:00 97.8 81 17 144/77 100 I/O 03/05/16 03/05/16 03/05/16 03/06/16 03/06/16 03/06/16 07:00 15:00 23:00 07:00 15:00 23:00 Intake Total 200 ml 380 ml 250 ml 125 ml Output Total 175 ml 325 ml 150 ml 350 ml Balance 25 ml 55 ml 100 ml -225 ml Intake Oral 200 ml 380 ml 250 ml 125 ml IV Total 0 ml 0 ml 0 ml Output Urine Total 175 ml 325 ml 150 ml 350 ml # Bowel Movements 0 1 0 0 Result Diagram: 03/05/16 0527 03/06/16 0449 Objective Remarks GENERAL: in no apparent distress. CARDIOVASCULAR: Regular rate and regular rhythm without murmurs, gallops, or rubs. RESPIRATORY: Decreased Breath sounds equal bilaterally. Left base crackles GASTROINTESTINAL: Abdomen soft, non-tender, nondistended. Normal, active bowel sounds MUSCULOSKELETAL: Extremities without clubbing, cyanosis but with edema. NEURO: Appears weak but following commands appropriately. Awake and alert. Moving all extremities Procedures Cardiac catheterization A/P Problem List: (1) CHF (congestive heart failure) ICD Code: I50.9 Status: Acute (2) Acute systolic heart failure ICD Code: I50.21 Status: Acute Assessment and Plan -Acute respiratory failure requiring BiPAP- now stable on N/C- will keep on oxygen to keep O2 sat > 90%.continue neb treatment. -NSTEMI with Acute decompensated biventricular heart failure/ nonischemic cardiomyopathy s/p cardiac cath with normal coronaries-echo with EF 15% continue aspirin, plavix, amiodarone, Coreg and diuretics- will consider adding JOHNATHAN-I. may need life vest upon discharge and persistent NSVT on amiodarone discussed with cardiology -Encephalopathy-likely metabolic- continue with neuro-checks- on ativan and haldol- restraints as needed- evaluated by neurology. 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 Avoid nephrotoxins. We will hold adding JOHNATHAN inhibitor today. Repeat BMP and magnesium in the morning -DVT prophylaxis with subq heparin -continue PT/ evaluated by ST ; recommended puree diet. Stable for transfer to floor Discharge Planning Stable for transfer to floor. Not ready for discharge Problem Qualifiers (1) CHF (congestive heart failure): Qualified Code: I50.9 - Congestive heart failure, unspecified congestive heart failure chronicity, unspecified congestive heart failure type Johnson Robles MD Mar 06, 2016 14:16
[2016-03-06] MEDS: ATORVASTATIN 80 MG TAB PO SCH (20:05)
[2016-03-07] VITALS (12 sets, daily range): BP systolic 114–142; BP diastolic 67–78; PULSE 62–86; RESP 14–20; TEMP 97.2–97.8; O2SAT 95–99
[2016-03-07] MEDS: FREE WATER G-TUBE SCH ×2 (05:45)
[2016-03-07 05:54] LABS: BICARBONATE 31.2 MEQ/L (21.0-32.0); MAGNESIUM 2.4 MG/DL (1.5-2.5); POTASSIUM 3.2 MEQ/L (3.5-5.1)
--- NOTE | 2016-03-07 09:01 | PD.CARD.PN ---
Subjective Subjective Remarks No chest pain, no shortness of breath, less lethargic Objective Medications Current Medications Medications (Trade) Dose Ordered Sig/Rogelio Route Start Time Stop Time Status Last Admin (Tylenol) 650 mg Q4H PRN PO 02/22/16 20:15 (Zofran Inj) 4 mg Q6H PRN IVP 02/22/16 20:15 (Compazine Supp) 25 mg Q12H PRN [place] 02/22/16 20:15 (Dulcolax Supp) 10 mg DAILY PRN [place] 02/22/16 20:15 02/29/16 06:31 (Senokot) 17.2 mg Q12H PRN PO 02/22/16 20:15 02/28/16 17:53 (Restoril) 15 mg HS PRN PO 02/22/16 20:15 03/01/16 01:30 (Aspirin Chew) 81 mg DAILY CHEW 02/23/16 09:00 03/06/16 08:34 (Plavix) 75 mg DAILY PO 02/23/16 09:00 03/06/16 08:34 (Lipitor) 80 mg HS PO 02/23/16 21:00 03/06/16 20:05 (NS Flush) 2 ml BID IVF 02/23/16 21:00 03/06/16 20:06 (NS Flush) 2 ml UNSCH PRN IVF 02/23/16 10:30 03/06/16 06:17 Miscellaneous Information Patient in critical care unit? Ass... Q361D XX 02/23/16 16:45 02/23/16 16:45 (Heparin Inj) 5,000 units Q12HR SQ 02/23/16 21:00 03/06/16 20:05 (Haldol Inj) 2 mg Q6H PRN IM 02/24/16 08:45 03/03/16 02:13 (Narcan Inj) 0.4 mg UNSCH PRN IV 02/24/16 11:30 02/24/16 12:16 (Apresoline Inj) 10 mg Q4H PRN IV PUSH 02/24/16 21:45 03/06/16 06:17 (Trandate Inj) 10 mg Q2H PRN IVS 02/25/16 08:45 03/03/16 22:44 (Cordarone) 200 mg Q12HR PO 02/27/16 09:45 03/06/16 20:05 (Free Water) VOLUME OF WATER: ( 250 ) ML Q6HR G-TUBE 02/29/16 12:00 03/07/16 05:45 (Ativan Inj) 1 mg Q4H PRN IV PUSH 03/02/16 13:00 03/04/16 02:25 (Lasix) 40 mg DAILY PO 03/04/16 09:00 Hold 03/06/16 08:34 (Coreg) 6.25 mg Q12HR PO 03/04/16 21:00 03/06/16 20:05 Vital Signs / I&O Vital Signs Date Time Temp Pulse Resp B/P Pulse Ox O2 Delivery O2 Flow Rate FiO2 03/07/16 06:00 65 03/07/16 04:00 97.7 64 16 142/78 96 03/07/16 04:00 64 03/07/16 04:00 96 Nasal Cannula 2.00 03/07/16 02:00 63 03/07/16 00:00 99 Nasal Cannula 2.00 03/07/16 00:00 62 03/07/16 00:00 97.4 62 14 128/73 99 03/06/16 22:00 61 03/06/16 20:00 96 Nasal Cannula 2.00 03/06/16 20:00 97.8 68 23 140/83 96 03/06/16 20:00 68 03/06/16 18:00 67 03/06/16 16:00 67 03/06/16 16:00 96.7 61 16 141/81 100 03/06/16 16:00 100 Nasal Cannula 2.00 03/06/16 14:00 67 03/06/16 12:00 67 03/06/16 12:00 98 Nasal Cannula 2.00 Humidified 03/06/16 12:00 97.6 65 16 129/63 03/06/16 10:00 68 I/O 03/06/16 03/06/16 03/06/16 03/07/16 03/07/16 03/07/16 07:00 15:00 23:00 07:00 15:00 23:00 Intake Total 125 ml 480 ml 480 ml 500 ml Output Total 350 ml 150 ml 250 ml 300 ml Balance -225 ml 330 ml 230 ml 200 ml Intake Oral 125 ml 480 ml 480 ml 500 ml IV Total 0 ml Output Urine Total 350 ml 150 ml 250 ml 300 ml # Voids 1 # Bowel Movements 0 Physical Exam GENERAL: Awake and alert SKIN: Warm and dry. HEAD: Atraumatic. Normocephalic. EYES: Pupils equal and round. No scleral icterus. No injection or drainage. ENT: No nasal bleeding or discharge. Mucous membranes pink and moist. NECK: Trachea midline. Mild JVD CARDIOVASCULAR: Regular rhythm. RESPIRATORY: Decreased breath sounds bilaterally, more clear than yesterday GASTROINTESTINAL: Abdomen soft, non-tender, nondistended. Hepatic and splenic margins not palpable. MUSCULOSKELETAL: Anasarca NEUROLOGICAL: No obvious cranial nerve deficits. Motor grossly within normal limits. PSYCHIATRIC: Unable to obtain Laboratory Laboratory Tests Test 03/07/16 05:09 Sodium Level 147 MEQ/L Potassium Level 3.2 MEQ/L Chloride Level 109 MEQ/L Carbon Dioxide Level 31.2 MEQ/L Anion Gap 7 MEQ/L Blood Urea Nitrogen 35 MG/DL Creatinine 1.37 MG/DL Estimat Glomerular Filtration 63 ML/MIN Rate Random Glucose 84 MG/DL Calcium Level 8.6 MG/DL Magnesium Level 2.4 MG/DL B-Type Natriuretic Peptide GREATER THAN 5000 PG/ML Assessment and Plan Problem List: (1) NICM (nonischemic cardiomyopathy) (2) Acute systolic heart failure (3) Acute kidney injury superimposed on CKD (4) Hypertension (5) NSTEMI (non-ST elevated myocardial infarction) (6) Hypoalbuminemia Assessment and Plan 1) Biventricular heart failure, NICM EF 15-20% 2) No obstructive CAD 3) Amiodarone PO, no further NSVT... discussed with Dr. Ho, will consider EP study and possible ICD if VT inducible, if not then decision on LifeVest vs continued Amiodarone 4) Follow electrolytes and replace as necessary, will replace K+ today 5) Appears intravascularly dry, needs to equilibrate, Lasix held today, Creatinine somewhat better, will reassess tomorrow before restarting Lasix 6) ASA/Plavix 7) After diuresis, most likely needs JOHNATHAN-I 8) Hypoalbuminemia leading to anasarca 9) May be transferred to telemetry floor from cardiovascular standpoint 10) [facility] Dr[facility], he agrees not [facility], maybe in the next few days Danilo Serra DO Mar 07, 2016 09:01
[2016-03-07] MEDS ORDERED: POTASSIUM CL 40 MEQ/30 ML LIQ UDC PO ONE (10:00)
[2016-03-07] MEDS: CLOPIDOGREL 75 MG TAB PO SCH (10:27)
[2016-03-07] MEDS: ASPIRIN 81 MG CHEW TAB CHEW SCH (10:27)
[2016-03-07] MEDS: AMIODARONE 200 MG TAB PO SCH ×2 (10:27→21:07)
[2016-03-07] MEDS: CARVEDILOL 6.25 MG TAB PO SCH ×2 (10:27→21:06)
[2016-03-07] MEDS: HEPARIN SODIUM - SQ 10,000 UNITS/ML VIAL SQ SCH ×2 (10:28→21:08)
--- NOTE | 2016-03-07 13:30 | HHI.PR ---
Subjective Remarks Follow-up heart failure. He is doing okay stable on 2 L Objective Vitals Vital Signs Date Time Temp Pulse Resp B/P Pulse Ox O2 Delivery O2 Flow Rate FiO2 03/07/16 09:42 96 Nasal Cannula 2.00 03/07/16 06:00 65 03/07/16 04:00 97.7 64 16 142/78 96 03/07/16 04:00 64 03/07/16 04:00 96 Nasal Cannula 2.00 03/07/16 02:00 63 03/07/16 00:00 99 Nasal Cannula 2.00 03/07/16 00:00 62 03/07/16 00:00 97.4 62 14 128/73 99 03/06/16 22:00 61 03/06/16 20:00 96 Nasal Cannula 2.00 03/06/16 20:00 97.8 68 23 140/83 96 03/06/16 20:00 68 03/06/16 18:00 67 03/06/16 16:00 67 03/06/16 16:00 96.7 61 16 141/81 100 03/06/16 16:00 100 Nasal Cannula 2.00 03/06/16 14:00 67 I/O 03/06/16 03/06/16 03/06/16 03/07/16 03/07/16 03/07/16 07:00 15:00 23:00 07:00 15:00 23:00 Intake Total 125 ml 480 ml 480 ml 500 ml 480 ml Output Total 350 ml 150 ml 250 ml 300 ml Balance -225 ml 330 ml 230 ml 200 ml 480 ml Intake Oral 125 ml 480 ml 480 ml 500 ml 480 ml IV Total 0 ml Output Urine Total 350 ml 150 ml 250 ml 300 ml # Voids 1 # Bowel Movements 0 1 Result Diagram: 03/05/16 0527 03/07/16 0509 Imaging Last Impressions Chest X-Ray 03/02/16 0000 Signed Impressions: Service Date/Time: Wednesday, March 02, 2016 08:49 - CONCLUSION: Stable cardiomegaly and perihilar vascular congestion unchanged Dallin Lopez MD Head CT 02/24/16 0000 Signed Impressions: Service Date/Time: Wednesday, February 24, 2016 10:53 - CONCLUSION: Moderate motion artifact otherwise negative. Yunier Delgado MD FACR Objective Remarks GENERAL: in no apparent distress. CARDIOVASCULAR: Regular rate and regular rhythm without murmurs, gallops, or rubs. RESPIRATORY: Decreased Breath sounds equal bilaterally. GASTROINTESTINAL: Abdomen soft, non-tender, nondistended. Normal, active bowel sounds MUSCULOSKELETAL: Extremities without clubbing, cyanosis but with edema. NEURO: Appears weak but following commands appropriately. Awake and alert. Moving all extremities Procedures Cardiac catheterization A/P Problem List: (1) CHF (congestive heart failure) ICD Code: I50.9 Status: Acute (2) Acute systolic heart failure ICD Code: I50.21 Status: Acute Assessment and Plan -Acute respiratory failure requiring BiPAP- now stable on N/C- will keep on oxygen to keep O2 sat > 90%.continue neb treatment. -NSTEMI with Acute decompensated biventricular heart failure/ nonischemic cardiomyopathy s/p cardiac cath with normal coronaries-echo with EF 15% continue aspirin, plavix, amiodarone, Coreg and diuretics- will consider adding JOHNATHAN-I. may need life vest upon discharge and persistent NSVT on amiodarone discussed with cardiology. Dr. Ho consulted for possible EPS -Encephalopathy-likely metabolic- continue with neuro-checks- on ativan and haldol- restraints as needed- evaluated by neurology. 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 Avoid nephrotoxins. We will hold adding JOHNATHAN inhibitor today. Repeat BMP and magnesium in the morning -DVT prophylaxis with subq heparin -continue PT/ evaluated by ST ; recommended puree diet. Stable for transfer to floor Discharge Planning Stable for transfer to floor. Not ready for discharge Problem Qualifiers (1) CHF (congestive heart failure): Qualified Code: I50.9 - Congestive heart failure, unspecified congestive heart failure chronicity, unspecified congestive heart failure type Johnson Robles MD Mar 07, 2016 13:30
[2016-03-07] MEDS: ATORVASTATIN 80 MG TAB PO SCH (21:07)
[2016-03-07] MEDS: SODIUM CHLORIDE 0.9% FLUSH 5 ML FLUSH IVF SCH (21:08)
[2016-03-08] VITALS (13 sets, daily range): BP systolic 116–154; BP diastolic 70–93; PULSE 63–85; RESP 18–20; TEMP 97.6–98.4; O2SAT 92–99
[2016-03-08 07:04] LABS: AUTOMATED NEUTROPHIL # 6.5 TH/MM3 (1.8-7.7); BASOPHIL % 0.6 % (0.0-2.0); EOSINOPHIL # 0.4 TH/MM3 (0-0.4); EOSINOPHIL % 4.4 % (0.0-4.0); HEMO FLAGS DIFF FINAL; LYMPH % 7.8 % (9.0-44.0); LYMPHOCYTE # 0.6 TH/MM3 (1.0-4.8); MEAN CELL VOLUME 91.6 FL (80.0-100.0); MEAN CORPUSCULAR HEMOGLOBIN 30.5 PG (27.0-34.0); MEAN CORPUSCULAR HGB CONC 33.3 % (32.0-36.0); MONO % 7.2 % (0.0-8.0); PLATELET COUNT 275 TH/MM3 (150-450); RED BLOOD COUNT 3.61 MIL/MM3 (4.50-5.90); RED CELL DISTRIBUTION WIDTH 15.4 % (11.6-17.2); WHITE BLOOD COUNT 8.1 TH/MM3 (4.0-11.0)
[2016-03-08 07:08] LABS: BICARBONATE 32.9 MEQ/L (21.0-32.0); POTASSIUM 3.5 MEQ/L (3.5-5.1)
[2016-03-08] MEDS: CLOPIDOGREL 75 MG TAB PO SCH (08:50)
[2016-03-08] MEDS: ASPIRIN 81 MG CHEW TAB CHEW SCH (08:50)
[2016-03-08] MEDS: HEPARIN SODIUM - SQ 10,000 UNITS/ML VIAL SQ SCH ×2 (08:50→21:24)
[2016-03-08] MEDS: CARVEDILOL 6.25 MG TAB PO SCH ×2 (08:50→21:23)
[2016-03-08] MEDS: AMIODARONE 200 MG TAB PO SCH ×2 (08:50→21:23)
[2016-03-08] MEDS: SODIUM CHLORIDE 0.9% FLUSH 5 ML FLUSH IVF SCH ×2 (08:55→21:00)
--- NOTE | 2016-03-08 13:00 | HHI.PR ---
Subjective Remarks Follow-up heart failure. States his breathing is about the same tolerating room air. Going for EP study today. Discussed with RN Objective Vitals Vital Signs Date Time Temp Pulse Resp B/P Pulse Ox O2 Delivery O2 Flow Rate FiO2 03/08/16 09:32 92 21 03/08/16 08:00 Nasal Cannula 2.00 03/08/16 04:00 98.4 67 18 124/70 92 03/07/16 23:21 86 03/07/16 22:58 Nasal Cannula 2.00 03/07/16 22:48 97.8 84 18 114/69 98 03/07/16 21:22 96 Nasal Cannula 2.00 03/07/16 20:00 66 03/07/16 20:00 97.8 66 20 142/67 95 03/07/16 20:00 95 Nasal Cannula 2.00 03/07/16 16:00 97.2 03/07/16 16:00 68 03/07/16 16:00 96 Nasal Cannula 2.00 I/O 03/07/16 03/07/16 03/07/16 03/08/16 03/08/16 03/08/16 07:00 15:00 23:00 07:00 15:00 23:00 Intake Total 500 ml 480 ml 720 ml 200 ml Output Total 300 ml 900 ml 100 ml Balance 200 ml 480 ml -180 ml 100 ml Intake Oral 500 ml 480 ml 720 ml 200 ml IV Total 0 ml Output Urine Total 300 ml 900 ml 100 ml # Voids 1 # Bowel Movements 1 0 1 Result Diagram: 03/08/16 0547 03/08/16 0457 Objective Remarks GENERAL: in no apparent distress. CARDIOVASCULAR: Regular rate and regular rhythm without gallops, or rubs. Systolic murmur noted RESPIRATORY: Decreased Breath sounds equal bilaterally. GASTROINTESTINAL: Abdomen soft, non-tender, nondistended. Normal, active bowel sounds MUSCULOSKELETAL: Extremities without clubbing, cyanosis but with edema. NEURO: Appears weak but following commands appropriately. Awake and alert. Moving all extremities Procedures Cardiac catheterization A/P Problem List: (1) CHF (congestive heart failure) ICD Code: I50.9 Status: Acute (2) Acute systolic heart failure ICD Code: I50.21 Status: Acute Assessment and Plan -Acute respiratory failure requiring BiPAP- now stable on N/C- will keep on oxygen to keep O2 sat > 90%.continue neb treatment. -NSTEMI with Acute decompensated biventricular heart failure/ nonischemic cardiomyopathy s/p cardiac cath with normal coronaries-echo with EF 15% continue aspirin, plavix, amiodarone, Coreg and diuretics- will consider adding JOHNATHAN-I. may need life vest upon discharge and persistent NSVT on amiodarone discussed with cardiology. Dr. Ho consulted for EP study today -Encephalopathy-likely metabolic- continue with neuro-checks- on ativan and haldol- restraints as needed- evaluated by neurology. 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 Avoid nephrotoxins. We will hold adding JOHNATHAN inhibitor today. Repeat BMP and magnesium in the morning -DVT prophylaxis with subq heparin -continue PT/ evaluated by ST ; recommended puree diet. Discharge Planning Not ready for discharge Problem Qualifiers (1) CHF (congestive heart failure): Qualified Code: I50.9 - Congestive heart failure, unspecified congestive heart failure chronicity, unspecified congestive heart failure type Johnson Robles MD Mar 08, 2016 13:00
--- NOTE | 2016-03-08 13:10 | PD.CARD.PN ---
Subjective Subjective Remarks No chest pain, no shortness of breath Objective Medications Current Medications Medications (Trade) Dose Ordered Sig/Rogelio Route Start Time Stop Time Status Last Admin (Tylenol) 650 mg Q4H PRN PO 02/22/16 20:15 (Zofran Inj) 4 mg Q6H PRN IVP 02/22/16 20:15 (Compazine Supp) 25 mg Q12H PRN WA 02/22/16 20:15 (Dulcolax Supp) 10 mg DAILY PRN [place] 02/22/16 20:15 02/29/16 06:31 (Senokot) 17.2 mg Q12H PRN PO 02/22/16 20:15 02/28/16 17:53 (Restoril) 15 mg HS PRN PO 02/22/16 20:15 03/01/16 01:30 (Aspirin Chew) 81 mg DAILY CHEW 02/23/16 09:00 03/08/16 08:50 (Plavix) 75 mg DAILY PO 02/23/16 09:00 03/08/16 08:50 (Lipitor) 80 mg HS PO 02/23/16 21:00 03/07/16 21:07 (NS Flush) 2 ml BID IVF 02/23/16 21:00 03/08/16 08:55 (NS Flush) 2 ml UNSCH PRN IVF 02/23/16 10:30 03/06/16 06:17 Miscellaneous Information Patient in critical care unit? Ass... Q361D XX 02/23/16 16:45 02/23/16 16:45 (Heparin Inj) 5,000 units Q12HR SQ 02/23/16 21:00 03/08/16 08:50 (Haldol Inj) 2 mg Q6H PRN IM 02/24/16 08:45 03/03/16 02:13 (Narcan Inj) 0.4 mg UNSCH PRN IV 02/24/16 11:30 02/24/16 12:16 (Apresoline Inj) 10 mg Q4H PRN IV PUSH 02/24/16 21:45 03/06/16 06:17 (Trandate Inj) 10 mg Q2H PRN IVS 02/25/16 08:45 03/03/16 22:44 (Cordarone) 200 mg Q12HR PO 02/27/16 09:45 03/08/16 08:50 (Ativan Inj) 1 mg Q4H PRN IV PUSH 03/02/16 13:00 03/04/16 02:25 (Lasix) 40 mg DAILY PO 03/04/16 09:00 Hold 03/06/16 08:34 (Coreg) 6.25 mg Q12HR PO 03/04/16 21:00 03/08/16 08:50 Vital Signs / I&O Vital Signs Date Time Temp Pulse Resp B/P Pulse Ox O2 Delivery O2 Flow Rate FiO2 03/08/16 09:32 92 21 03/08/16 08:00 Nasal Cannula 2.00 03/08/16 04:00 98.4 67 18 124/70 92 03/07/16 23:21 86 03/07/16 22:58 Nasal Cannula 2.00 03/07/16 22:48 97.8 84 18 114/69 98 03/07/16 21:22 96 Nasal Cannula 2.00 03/07/16 20:00 66 03/07/16 20:00 97.8 66 20 142/67 95 03/07/16 20:00 95 Nasal Cannula 2.00 03/07/16 16:00 97.2 03/07/16 16:00 68 03/07/16 16:00 96 Nasal Cannula 2.00 I/O 03/07/16 03/07/16 03/07/16 03/08/16 03/08/16 03/08/16 07:00 15:00 23:00 07:00 15:00 23:00 Intake Total 500 ml 480 ml 720 ml 200 ml Output Total 300 ml 900 ml 100 ml Balance 200 ml 480 ml -180 ml 100 ml Intake Oral 500 ml 480 ml 720 ml 200 ml IV Total 0 ml Output Urine Total 300 ml 900 ml 100 ml # Voids 1 # Bowel Movements 1 0 1 Physical Exam GENERAL: Awake and alert SKIN: Warm and dry. HEAD: Atraumatic. Normocephalic. EYES: Pupils equal and round. No scleral icterus. No injection or drainage. ENT: No nasal bleeding or discharge. Mucous membranes pink and moist. NECK: Trachea midline. Mild JVD CARDIOVASCULAR: Regular rhythm. RESPIRATORY: Decreased breath sounds bilaterally, more clear than yesterday GASTROINTESTINAL: Abdomen soft, non-tender, nondistended. Hepatic and splenic margins not palpable. MUSCULOSKELETAL: Anasarca NEUROLOGICAL: No obvious cranial nerve deficits. Motor grossly within normal limits. PSYCHIATRIC: Unable to obtain Laboratory Laboratory Tests Test 03/08/16 03/08/16 04:57 05:47 Sodium Level 146 MEQ/L Potassium Level 3.5 MEQ/L Chloride Level 108 MEQ/L Carbon Dioxide Level 32.9 MEQ/L Anion Gap 5 MEQ/L Blood Urea Nitrogen 32 MG/DL Creatinine 1.34 MG/DL Estimat Glomerular Filtration 64 ML/MIN Rate Random Glucose 70 MG/DL Calcium Level 8.0 MG/DL White Blood Count 8.1 TH/MM3 Red Blood Count 3.61 MIL/MM3 Hemoglobin 11.0 GM/DL Hematocrit 33.0 % Mean Corpuscular Volume 91.6 FL Mean Corpuscular Hemoglobin 30.5 PG Mean Corpuscular Hemoglobin 33.3 % Concent Red Cell Distribution Width 15.4 % Platelet Count 275 TH/MM3 Mean Platelet Volume 8.8 FL Neutrophils (%) (Auto) 80.0 % Lymphocytes (%) (Auto) 7.8 % Monocytes (%) (Auto) 7.2 % Eosinophils (%) (Auto) 4.4 % Basophils (%) (Auto) 0.6 % Neutrophils # (Auto) 6.5 TH/MM3 Lymphocytes # (Auto) 0.6 TH/MM3 Monocytes # (Auto) 0.6 TH/MM3 Eosinophils # (Auto) 0.4 TH/MM3 Basophils # (Auto) 0.0 TH/MM3 CBC Comment DIFF FINAL Differential Comment Assessment and Plan Problem List: (1) NICM (nonischemic cardiomyopathy) (2) Acute systolic heart failure (3) Acute kidney injury superimposed on CKD (4) Hypertension (5) NSTEMI (non-ST elevated myocardial infarction) (6) Hypoalbuminemia Assessment and Plan 1) Biventricular heart failure, NICM EF 15-20% 2) No obstructive CAD 3) Amiodarone PO, no further NSVT... discussed with Dr. Ho, will consider EP study and possible ICD if VT inducible, if not then decision on LifeVest vs continued Amiodarone 4) Follow electrolytes and replace as necessary, will replace K+ today 5) Previously intravascularly dry, needs to equilibrate, Lasix held today and yesterday, Creatinine somewhat better, will reassess tomorrow before restarting Lasix 6) ASA/Plavix 7) After diuresis, most likely needs JOHNATHAN-I 8) Hypoalbuminemia leading to anasarca 9) [facility] he agrees not [facility], maybe in the next few days Danilo Serra DO Mar 08, 2016 13:10
[2016-03-08] MEDS ORDERED: VANCOMYCIN 500 MG VIAL ONE (14:47)
[2016-03-08] MEDS ORDERED: VANCOMYCIN HCL 1000 MG VIAL ONE (14:48)
[2016-03-08] MEDS ORDERED: ceFAZolin INJ 1,000 MG VIAL ONE (14:48)
[2016-03-08] MEDS ORDERED: SODIUM CHLOR 0.9% 250 ML INJ 250 ML ONE (14:48)
[2016-03-08] MEDS ORDERED: LIDOCAINE HCL 2% 50 ML VIAL ONE (14:48)
[2016-03-08] MEDS ORDERED: ISOPROTERENOL HCL 1 MG/5 ML AMP ONE (14:49)
[2016-03-08] MEDS ORDERED: MIDAZOLAM HCL 2 MG/2 ML VIAL ONE (14:49)
[2016-03-08] MEDS ORDERED: HEPARIN-NS/PF INJ 500 ML ONE (14:49)
[2016-03-08] MEDS ORDERED: LIDOCAINE HCL 1% 50 ML VIAL INFIL PRN (16:15)
[2016-03-08] MEDS ORDERED: SODIUM CHLOR 0.9% 250 ML INJ 250 ML IV PRN (16:15)
[2016-03-08] MEDS ORDERED: LORazepam 2 MG/ML VIAL IV PRN (16:15)
[2016-03-08] MEDS ORDERED: METOCLOPRAMIDE HCL 10 MG/2 ML VIAL IV PRN (16:15)
[2016-03-08] MEDS ORDERED: ONDANSETRON HCL 4 MG/2 ML VIAL IV PRN (16:15)
[2016-03-08] MEDS ORDERED: BACITRACIN OINT 0.9 GM PKT TOP ONE (16:15)
[2016-03-08] MEDS ORDERED: ATROPINE SULFATE 1 MG/ML VIAL IV PRN (16:15)
--- NOTE | 2016-03-08 17:58 | MA ---
cc: LAURA SCHRADER HANSCY M.D. DATE: 03/08/2016 PROCEDURE Electrophysiology study and CS cannulation. INDICATION Mr. Le is a 66-year-old -[place] gentleman with a history of congestive heart failure, cardiomyopathy, end-stage HIV disease, end-stage heart failure, ejection fraction 15% who was admitted due to heart failure. Left heart catheterization was done by Dr. Schrader that indicated no occlusion. He had some runs of ventricular tachyarrhythmia. Decision for electrophysiology study was taken. The risks, the nature and the benefit of the procedure were clearly stated to him. The risks include pneumothorax, cardiac perforation, stroke, need for open heart surgery and even . He understood and agreed to proceed. PROCEDURE After written informed consent was obtained, the patient was brought to the EP Lab where he was prepped and draped in the usual sterile fashion. Conscious sedation was initiated and maintained throughout the procedure by anesthesiologist. Once sedation verified, the right inguinal area was anesthetized with 2% Xylocaine. Using modified Seldinger technique, the right femoral vein was cannulated on four occasions, four guidewires were advanced, over the wires three 5 and a 6-Mozambican Hemaquet were advanced. Then under fluoroscopic guidance through the 5 and 6-Mozambican Hemaquet, four 5-Mozambican Mery curved quadripolar electrophysiology catheters advanced and positioned along the His, at the right atrium, coronary sinus and right ventricular apex. Basic interval was measured. There is infra-His disease. HV was around 80 milliseconds. Then atrial pacing protocol was performed. Wenckebach was high around 620 milliseconds. Then ventricular pacing protocol was performed. There is very high capture in the RV, no tachyarrhythmia was induced. The patient unable to tolerate RV pacing. At that point the procedure was complete. All catheters were removed. I discussed the case with Dr. Mayo, this is a doctor at the retirement, and at that point the gentleman I feel is pretty advanced. His HIV is pretty advanced, his life expectancy is less than a year. There is no need to implant a defibrillator, that fell out of the guideline because there is no need for a defibrillator, at the same time there is no need for a defibrillatory vest. The gentleman can be discharged home whenever it is okay with the managing team. No incident to report. The patient unable to tolerate fully the procedure. Blood loss minimal. 1. Electrocardiogram: At baseline the patient was in sinus. Postprocedure electrocardiogram was unchanged. 2. Basic Interval: Base cycle length 940 milliseconds, AH at 290 and HV at 80 milliseconds. 3. Atrial Pacing Protocol: As mentioned before Wenckebach of the node 620 milliseconds. No tachyarrhythmia was induced. 4. Ventricular Pacing Protocol: There was no VA conduction. Ventricular pacing protocol could not be continue because the patient was unstable and blood pressure does allow ventricular pacing. 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 2. Negative electrophysiology study for ventricular and supraventricular tachyarrhythmia. RECOMMENDATIONS As mentioned before, the gentleman at this point has a life expectancy less than a year, multiple comorbidities. There is no need for defibrillator nor need for a defibrillatory vest insertion. The patient can be discharged home whenever it is okay with the managing team. Anuj Ho MD /PAOLA /3:49 PM /5:21 PM
[2016-03-08] MEDS: SACUBITRIL/VALSARTAN 24 MG-26 MG TAB PO SCH (21:23)
[2016-03-08] MEDS: ATORVASTATIN 80 MG TAB PO SCH (21:23)
[2016-03-09] VITALS (12 sets, daily range): BP systolic 121–145; BP diastolic 69–89; PULSE 61–79; RESP 18–20; TEMP 98.1–98.3; O2SAT 97–99
[2016-03-09 05:22] LABS: BICARBONATE 33.1 MEQ/L (21.0-32.0); MAGNESIUM 2.3 MG/DL (1.5-2.5); POTASSIUM 3.6 MEQ/L (3.5-5.1)
[2016-03-09] MEDS: SODIUM CHLORIDE 0.9% FLUSH 5 ML FLUSH IVF SCH (09:00)
[2016-03-09] MEDS: CARVEDILOL 6.25 MG TAB PO SCH (09:00)
[2016-03-09] MEDS: AMIODARONE 200 MG TAB PO SCH (09:00)
[2016-03-09] MEDS: CLOPIDOGREL 75 MG TAB PO SCH (09:00)
[2016-03-09] MEDS: SACUBITRIL/VALSARTAN 24 MG-26 MG TAB PO SCH (09:00)
[2016-03-09] MEDS: HEPARIN SODIUM - SQ 10,000 UNITS/ML VIAL SQ SCH (09:00)
[2016-03-09] MEDS: ASPIRIN 81 MG CHEW TAB CHEW SCH (09:00)
[2016-03-09] MEDS ORDERED: SACU1TAB PO (10:46)
--- NOTE | 2016-03-09 10:52 | HHI.PR ---
Subjective Remarks F/u HF. Stable on RA tolerated EP study dw RN Objective Vitals Vital Signs Date Time Temp Pulse Resp B/P Pulse Ox O2 Delivery O2 Flow Rate FiO2 03/09/16 07:00 98.1 72 18 145/89 97 03/09/16 06:00 66 03/09/16 05:00 68 03/09/16 04:00 64 03/09/16 03:00 99 Room Air 03/09/16 03:00 61 03/09/16 03:00 98.3 65 20 121/69 99 03/09/16 02:00 63 03/09/16 01:00 63 03/09/16 00:00 61 03/08/16 23:00 66 03/08/16 23:00 98.0 66 20 116/80 99 03/08/16 23:00 99 Room Air 03/08/16 22:00 70 03/08/16 21:30 73 130/80 03/08/16 21:00 81 03/08/16 20:30 78 150/93 03/08/16 20:00 97 Room Air 03/08/16 20:00 85 03/08/16 19:30 97.6 71 20 154/93 97 03/08/16 19:00 70 03/08/16 16:45 63 03/08/16 16:45 98.0 63 18 143/83 95 03/08/16 16:45 95 Room Air 03/08/16 12:00 98.0 63 18 124/70 92 I/O 03/08/16 03/08/16 03/08/16 03/09/16 03/09/16 03/09/16 07:00 15:00 23:00 07:00 15:00 23:00 Intake Total 200 ml 480 ml Output Total 100 ml 1000 ml Balance 100 ml -520 ml Intake Oral 200 ml 480 ml Output Urine Total 100 ml 1000 ml # Voids 1 # Bowel Movements 1 0 Result Diagram: 03/08/16 0547 03/09/16 0313 Objective Remarks GENERAL: in no apparent distress. CARDIOVASCULAR: Regular rate and regular rhythm without gallops, or rubs. Systolic murmur noted RESPIRATORY: Decreased Breath sounds equal bilaterally. GASTROINTESTINAL: Abdomen soft, non-tender, nondistended. Normal, active bowel sounds MUSCULOSKELETAL: Extremities without clubbing, cyanosis but with edema. NEURO: Appears weak but following commands appropriately. Awake and alert. Moving all extremities Procedures Cardiac catheterization EP study A/P Problem List: (1) CHF (congestive heart failure) ICD Code: I50.9 Status: Acute (2) Acute systolic heart failure ICD Code: I50.21 Status: Acute Assessment and Plan -Acute respiratory failure requiring BiPAP- now stable on RA continue neb treatment. -NSTEMI with Acute decompensated biventricular heart failure/ nonischemic cardiomyopathy s/p cardiac cath with normal coronaries-echo with EF 15% continue aspirin, plavix, amiodarone, Coreg and diuretics- entresto started yesterday dw cardiology will not need life vest for now since stable on amiodarone with negative EP study -Encephalopathy-likely metabolic- continue with neuro-checks- on ativan and haldol- restraints as needed- evaluated by neurology. 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 Avoid nephrotoxins. -DVT prophylaxis with subq heparin -continue PT/ evaluated by ST ; recommended puree diet. Discharge Planning Now ready for discharge Problem Qualifiers (1) CHF (congestive heart failure): Qualified Code: I50.9 - Congestive heart failure, unspecified congestive heart failure chronicity, unspecified congestive heart failure type Johnson Robles MD Mar 09, 2016 10:52
--- NOTE | 2016-03-09 10:53 | HHI.DS ---
Discharge Summary Admission Date Feb 22, 2016 at 19:51 Discharge Date: Mar 09, 2016 Admitting Diagnosis CHF (1) CHF (congestive heart failure) ICD Code: I50.9 Diagnosis: Principal (2) Acute systolic heart failure ICD Code: I50.21 Diagnosis: Principal Procedures Cardiac catheterization EP study Brief History - From Admission Patient is 66-year-old AA male with past medical history of hypertension, CHF, presents from [facility] with the chief complaint of dyspnea on exertion for a year. He was seen in the clinic in [facility] yesterday and that they did some blood work. He states that they subsequently sent him here for evaluation today. He does not have chest pain. He has not been running a fever. Patient reports shortness of breath is getting worse over the past few days. Says she is not able to eat meals due to shortness of breath. He also reports increased lower extremity swelling. He does not require oxygen. Denies chest pain. However admits having chest pain at times. No fever or chills. Has intermittent cough no much production. Denies fever or chills. Says he is not taking his medications because he can't afford them. CBC/BMP: 03/08/16 0547 03/09/16 0313 Significant Findings Laboratory Tests Test 03/07/16 03/08/16 03/08/16 03/09/16 05:09 04:57 05:47 03:13 Sodium Level 147 MEQ/L 146 MEQ/L 146 MEQ/L (136-145) (136-145) (136-145) Potassium Level 3.2 MEQ/L (3.5-5.1) Chloride Level 109 MEQ/L 108 MEQ/L 108 MEQ/L (98-107) (98-107) (98-107) Blood Urea Nitrogen 35 MG/DL (7-18) 32 MG/DL (7-18) 30 MG/DL (7-18) Creatinine 1.37 MG/DL 1.34 MG/DL 1.42 MG/DL (0.60-1.30) (0.60-1.30) (0.60-1.30) Estimat Glomerular Filtration 63 ML/MIN (>89) 64 ML/MIN (>89) 60 ML/MIN (>89) Rate B-Type Natriuretic Peptide GREATER THAN 5000 PG/ML (0-100) Carbon Dioxide Level 32.9 MEQ/L 33.1 MEQ/L (21.0-32.0) (21.0-32.0) Random Glucose 70 MG/DL (74-106) Calcium Level 8.0 MG/DL (8.5-10.1) Red Blood Count 3.61 MIL/MM3 (4.50-5.90) Hemoglobin 11.0 GM/DL (13.0-17.0) Hematocrit 33.0 % (39.0-51.0) Neutrophils (%) (Auto) 80.0 % (16.0-70.0) Lymphocytes (%) (Auto) 7.8 % (9.0-44.0) Eosinophils (%) (Auto) 4.4 % (0.0-4.0) Lymphocytes # (Auto) 0.6 TH/MM3 (1.0-4.8) Imaging Last Impressions Chest X-Ray 03/02/16 0000 Signed Impressions: Service Date/Time: Wednesday, March 02, 2016 08:49 - CONCLUSION: Stable cardiomegaly and perihilar vascular congestion unchanged Dallin Lopez MD Head CT 02/24/16 0000 Signed Impressions: Service Date/Time: Wednesday, February 24, 2016 10:53 - CONCLUSION: Moderate motion artifact otherwise negative. Yunier Delgado MD FACR PE at Discharge GENERAL: in no apparent distress. CARDIOVASCULAR: Regular rate and regular rhythm without gallops, or rubs. Systolic murmur noted RESPIRATORY: Decreased Breath sounds equal bilaterally. GASTROINTESTINAL: Abdomen soft, non-tender, nondistended. Normal, active bowel sounds MUSCULOSKELETAL: Extremities without clubbing, cyanosis but with edema. NEURO: Appears weak but following commands appropriately. Awake and alert. Moving all extremities Hospital Course -Acute respiratory failure requiring BiPAP- now stable on RA continue neb treatment. -NSTEMI with Acute decompensated biventricular heart failure/ nonischemic cardiomyopathy s/p cardiac cath with normal coronaries-echo with EF 15% continue aspirin, plavix, amiodarone, Coreg and diuretics- entresto started yesterday dw cardiology will not need life vest for now since stable on amiodarone with negative EP study -Encephalopathy-likely metabolic- continue with neuro-checks- on ativan and haldol- restraints as needed- evaluated by neurology. 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 Avoid nephrotoxins. -DVT prophylaxis with subq heparin -continue PT/ evaluated by ST ; recommended puree diet. Pt Condition on Discharge: Stable Discharge Disposition: Dis to [facility] [employer] Discharge Time: > 30 minutes Discharge Instructions DIET: Follow Instructions for: Heart Healthy Diet Speech Therapy-Diet Recommends: Pureed Activities you can perform: Regular-No Restrictions Activities to Avoid: Driving Follow up Referrals: PCP Follow-up - 1 Week New Orders: BASIC METABOLIC PROF - 03/11/[address]: Aspir[address] (Aspirin EC) 81 Mg Tabdr 81 MG PO DAILY Prevent Blood Clot #30 Ref 0 TAB Amiodarone (Amiodarone) 200 Mg Tab 200 MG PO Q12HR Regulate Heart Beat #60 TAB Atorvastatin (Lipitor) 80 Mg Tab 80 MG PO HS Cholesterol Management #30 TAB Carvedilol (Coreg) 6.25 Mg Tab 6.25 MG PO Q12HR Regulate Heart Beat #60 TAB Clopidogrel (Plavix) 75 Mg Tab 75 MG PO DAILY Prevent Blood Clot #30 TAB Sacubitril-Valsartan (Entresto) 24-26 Mg Tab 1 TAB PO BID Prevent Heart Failure #60 TAB Continued Medications: Furosemide (Lasix) 20 Mg Tab 20 MG PO DAILY #60 Ref 0 TAB Johnson Robles MD Mar 09, 2016 10:53
--- NOTE | 2016-03-09 11:11 | PD.CARD.PN ---
Subjective Subjective Remarks No chest pain, no shortness of breath Objective Medications Current Medications Medications (Trade) Dose Ordered Sig/Rogelio Route Start Time Stop Time Status Last Admin (Tylenol) 650 mg Q4H PRN PO 02/22/16 20:15 (Zofran Inj) 4 mg Q6H PRN IVP 02/22/16 20:15 (Compazine Supp) 25 mg Q12H PRN CA 02/22/16 20:15 (Dulcolax Supp) 10 mg DAILY PRN CA 02/22/16 20:15 02/29/16 06:31 (Senokot) 17.2 mg Q12H PRN PO 02/22/16 20:15 02/28/16 17:53 (Restoril) 15 mg HS PRN PO 02/22/16 20:15 03/01/16 01:30 (Aspirin Chew) 81 mg DAILY CHEW 02/23/16 09:00 03/09/16 09:00 (Plavix) 75 mg DAILY PO 02/23/16 09:00 03/09/16 09:00 (Lipitor) 80 mg HS PO 02/23/16 21:00 03/08/16 21:23 (NS Flush) 2 ml BID IVF 02/23/16 21:00 03/08/16 21:00 (NS Flush) 2 ml UNSCH PRN IVF 02/23/16 10:30 03/06/16 06:17 Miscellaneous Information Patient in critical care unit? Ass... [id number] XX 02/23/16 16:45 02/23/16 16:45 (Heparin Inj) 5,000 units Q12HR SQ 02/23/16 21:00 03/09/16 09:00 (Haldol Inj) 2 mg Q6H PRN IM 02/24/16 08:45 03/03/16 02:13 (Narcan Inj) 0.4 mg UNSCH PRN IV 02/24/16 11:30 02/24/16 12:16 (Apresoline Inj) 10 mg Q4H PRN IV PUSH 02/24/16 21:45 03/06/16 06:17 (Trandate Inj) 10 mg Q2H PRN IVS 02/25/16 08:45 03/03/16 22:44 (Cordarone) 200 mg Q12HR PO 02/27/16 09:45 03/09/16 09:00 (Ativan Inj) 1 mg Q4H PRN IV PUSH 03/02/16 13:00 03/04/16 02:25 (Lasix) 40 mg DAILY PO 03/04/16 09:00 Hold 03/06/16 08:34 (Coreg) 6.25 mg Q12HR PO 03/04/16 21:00 03/09/16 09:00 (Entresto 24-26 Mg) 1 tab BID PO 03/08/16 21:00 03/09/16 09:00 (Ativan Inj) 0.5 mg UNSCH PRN IV 03/08/16 16:15 03/09/16 16:14 Atropine Sulfate 0.5 mg 0.5 mg UNSCH PRN IV 03/08/16 16:15 (NS 250 ml Inj) 250 ml @ 500 mls/hr ONCE PRN IV 03/08/16 16:15 03/09/16 16:14 (Reglan Inj) 10 mg Q4H PRN IV 03/08/16 16:15 (Zofran Inj) 4 mg Q4H PRN IV 03/08/16 16:15 (Xylocaine 1% Inj (50 ml)) 10 ml UNSCH PRN INFIL 03/08/16 16:15 03/09/16 16:14 Vital Signs / I&O Vital Signs Date Time Temp Pulse Resp B/P Pulse Ox O2 Delivery O2 Flow Rate FiO2 03/09/16 07:00 98.1 72 18 145/89 97 03/09/16 06:00 66 03/09/16 05:00 68 03/09/16 04:00 64 03/09/16 03:00 99 Room Air 03/09/16 03:00 61 03/09/16 03:00 98.3 65 20 121/69 99 03/09/16 02:00 63 03/09/16 01:00 63 03/09/16 00:00 61 03/08/16 23:00 66 03/08/16 23:00 98.0 66 20 116/80 99 03/08/16 23:00 99 Room Air 03/08/16 22:00 70 03/08/16 21:30 73 130/80 03/08/16 21:00 81 03/08/16 20:30 78 150/93 03/08/16 20:00 97 Room Air 03/08/16 20:00 85 03/08/16 19:30 97.6 71 20 154/93 97 03/08/16 19:00 70 03/08/16 16:45 63 03/08/16 16:45 98.0 63 18 143/83 95 03/08/16 16:45 95 Room Air 03/08/16 12:00 98.0 63 18 124/70 92 I/O 03/08/16 03/08/16 03/08/16 03/09/16 03/09/16 03/09/16 07:00 15:00 23:00 07:00 15:00 23:00 Intake Total 200 ml 480 ml Output Total 100 ml 1000 ml Balance 100 ml -520 ml Intake Oral 200 ml 480 ml Output Urine Total 100 ml 1000 ml # Voids 1 # Bowel Movements 1 0 Physical Exam GENERAL: Awake and alert SKIN: Warm and dry. HEAD: Atraumatic. Normocephalic. EYES: Pupils equal and round. No scleral icterus. No injection or drainage. ENT: No nasal bleeding or discharge. Mucous membranes pink and moist. NECK: Trachea midline. Mild JVD CARDIOVASCULAR: Regular rhythm. RESPIRATORY: Decreased breath sounds bilaterally, more clear than yesterday GASTROINTESTINAL: Abdomen soft, non-tender, nondistended. Hepatic and splenic margins not palpable. MUSCULOSKELETAL: Anasarca NEUROLOGICAL: No obvious cranial nerve deficits. Motor grossly within normal limits. PSYCHIATRIC: Unable to obtain Laboratory Laboratory Tests Test 03/09/16 03:13 Sodium Level 146 MEQ/L Potassium Level 3.6 MEQ/L Chloride Level 108 MEQ/L Carbon Dioxide Level 33.1 MEQ/L Anion Gap 5 MEQ/L Blood Urea Nitrogen 30 MG/DL Creatinine 1.42 MG/DL Estimat Glomerular Filtration 60 ML/MIN Rate Random Glucose 84 MG/DL Calcium Level 8.5 MG/DL Magnesium Level 2.3 MG/DL Assessment and Plan Problem List: (1) NICM (nonischemic cardiomyopathy) (2) Acute systolic heart failure (3) Acute kidney injury superimposed on CKD (4) Hypertension (5) NSTEMI (non-ST elevated myocardial infarction) (6) Hypoalbuminemia Assessment and Plan 1) Biventricular heart failure, NICM EF 15-20% 2) No obstructive CAD 3) Amiodarone PO, no further NSVT... discussed with Dr. Ho, EP study negative , but no LifeVest/ICD as life expectancy less than 1 year 4) Lasix daily PO 5) ASA/Plavix 6) Can transfer to longterm hospital today Danilo Serra DO Mar 09, 2016 11:11
--- NOTE | 2016-03-11 14:28 | MB ---
cc: LAURA SCHRADER HANSCY M.D. DATE OF CONSULTATION: 03/07/2016 REASON FOR CONSULTATION Congestive heart failure, ventricular tachycardia. HISTORY OF PRESENT ILLNESS Mr. Le is a 66-year-old -[place] gentleman with a history of congestive heart failure, cardiomyopathy and HIV. He had a left heart catheterization performed that indicated no significant occlusion. Ejection fraction was around 10-15%. He had some episodes of nonsustained ventricular tachycardia. I was consulted for evaluation and management by Dr. Schrader. The chart was reviewed. The patient was evaluated. ALLERGIES MULTIPLE DRUG RESISTANT ORGANISM. SOCIAL HISTORY Denies smoking and drinking. FAMILY HISTORY Noncontributory to his current medical condition. MEDICATIONS 1. Amiodarone 200 mg twice a day. 2. Aspirin. 3. Lipitor 80 mg a day. 4. Coreg 6.25 mg twice a day. 5. Plavix 75 mg a day. 6. Lasix 40 mg a day. 7. Haldol. REVIEW OF SYSTEMS He refers shortness of breath on activity but no chest pain, no chest discomfort, no fever. PHYSICAL EXAMINATION GENERAL: Alert, fully oriented. VITAL SIGNS: Blood pressure on evaluation was 142/78, pulse around 64, respiratory rate 20. LUNGS: Ventilated. CARDIOVASCULAR: S2, S2. No gallop. No murmur. ABDOMEN: Soft. No mass. EXTREMITIES: No edema. EKG Electrocardiogram indicated sinus rhythm, long first-degree AV block, nonsustained ventricular tachycardia, multiple PVCs. LABORATORY Hemoglobin 13.2, white blood cell count 12.9. Potassium 3.2, creatinine 1.37. BNP was greater than 5000. ASSESSMENT AND RECOMMENDATION Mr. Le has heart failure, ejection is 10-15% with nonsustained ventricular tachycardia. His medication will begin to be optimized. At this point my recommendation is electrophysiology study. If ventricular tachycardia is induced then a defibrillator will be inserted. I discussed the case extensively with the patient. There is an issue about possible defibrillatory vest in the [facility], is like a weapon. Apparently the gentleman will need to be transferred to a different institution. At this point I am going to wait for the electrophysiology study before taking a further decision. The case was also discussed extensively with Dr. Schrader. MD GREGORIO Parham /4:00 PM /2:18 PM
--- NOTE | 2016-03-11 22:56 | EKG ---
Date Performed: 03/08/2016 Time Performed: 17:42:22 PTAGE: 66 years EKG: Sinus rhythm with 1st degree A-V block Prolonged QT interval Leftward axis Left ventricular hypertrophy Lateral S T-T changes may be due to hypertrophy and/or ischemia Abnormal ECG PREVIOUS TRACING : 02/25/2016 02.28 Compared to the previous tracing, previously PVCs and proba ble VT DOCTOR: Danilo Serra Interpretating Date/Time 03/11/2016 22:54:58
== END 2016-03-09 13:50 | DRG 280 ==
LOC: NEDAMB 16:42 → EEVIPCON 19:51 → INTOOBSV 19:51 → NEDA 19:51 → OBSVTOIN 19:51 → NEDA 02-23 00:54 → HIMN 02-23 13:25 → N04A 03-07 22:48 → HCIN 03-08 16:22
PROVIDERS: ADMIT Internal Medicine; ATTEND Internal Medicine
PROC: B2111ZZ Fluoroscopy of Multiple Coronary Arteries using Low Osmolar Contrast (ICD-10-PCS; 2016-02-23)
PROC: 5A09557 Assistance with Respiratory Ventilation, Greater than 96 Consecutive Hours, Continuous Positive Airway Pressure (ICD-10-PCS; 2016-02-23)
PROC: 4A023N8 Measurement of Cardiac Sampling and Pressure, Bilateral, Percutaneous Approach (ICD-10-PCS; principal; 2016-02-23 09:00)
PROC: 4A0234Z Measurement of Cardiac Electrical Activity, Percutaneous Approach (ICD-10-PCS; 2016-03-08)
DX: I13.0 Hypertensive heart and chronic kidney disease with heart failure and stage 1 through stage 4 chronic kidney disease, or unspecified chronic kidney disease (principal); I21.4 Non-ST elevation (NSTEMI) myocardial infarction; J96.00 Acute respiratory failure, unspecified whether with hypoxia or hypercapnia; G93.41 Metabolic encephalopathy; N17.9 Acute kidney failure, unspecified; I47.2 Ventricular tachycardia; I42.9 Cardiomyopathy, unspecified; N18.3 Chronic kidney disease, stage 3 (moderate); E88.09 Other disorders of plasma-protein metabolism, not elsewhere classified; I50.23 Acute on chronic systolic (congestive) heart failure; E87.0 Hyperosmolality and hypernatremia; I27.2 Other secondary pulmonary hypertension; I25.10 Atherosclerotic heart disease of native coronary artery without angina pectoris; N40.0 Benign prostatic hyperplasia without lower urinary tract symptoms; E66.01 Morbid (severe) obesity due to excess calories; Z68.31 Body mass index [BMI] 31.0-31.9, adult; Z65.3 Problems related to other legal circumstances; Z91.19 Patient's noncompliance with other medical treatment and regimen; Z78.1 Physical restraint status
CPT/HCPCS: 36600; 70450; 71010; 76937; 80048; 80053; 80061; 80076; 81001; 82140; 82550; 82552; 82805; 82810; 83735; 83880; 84100; 84132; 84443; 84484; 85025; 87641; 93005; 93306; 93456; 93620; 94003; 94640; 94664; 95819; C1730; C1769; C1893; C9399; J0282; J0360; J0690; J1630; J1644; J1650; J1940; J2060; J2250; J2310; J3010; J3370; J3480; J7030; J7050; J7060; J7070; Q9967